=== PATIENT | female | born 1940 | race Caucasian/White ===

== ENCOUNTER → 2018-10-05 | Outpatient (CLI) | payer MEDICARE, OTHER | LOC: DL.US 09:13 | PROVIDERS: ATTEND Nurse Practitioner | DX: R10.13 Epigastric pain (principal); R16.1 Splenomegaly, not elsewhere classified; R59.0 Localized enlarged lymph nodes | CPT/HCPCS: 76700 ==

== ENCOUNTER 2018-10-16 07:18 | Day surgery (SDC) | payer MEDICARE, OTHER ==
[~2018-10-16 07:18] MED LIST: Midazolam 1 MG/ML 2 ML SDV ONE; fentaNYL 100 MCG/2 ML SDV ONE
[2018-10-16] MEDS ORDERED: Midazolam 1 MG/ML 2 ML SDV IV ONE ×3 (07:19→08:06)
[2018-10-16] MEDS ORDERED: fentaNYL 100 MCG/2 ML SDV IV ONE ×3 (07:19→08:05)
[2018-10-16] MEDS ORDERED: Dextrose 5%-0.45% NaCl 1,000 ML IV SCH (07:45)
[2018-10-16 10:17] VITALS: BP 138/70
--- NOTE | 2018-10-16 13:43 | OR ---
DATE: 10/16/2018 PROCEDURE PERFORMED: Esophagogastroduodenoscopy, NBI, multiple pinch biopsies, and brush biopsy. INSTRUMENT USED: [id number]-HQ190 Olympus video panendoscope. PREMEDICATIONS: No oral or topical anesthesia used. Fentanyl 100 mcg intravenous, Versed 2 mg intravenous. The procedure was done under pulse oximetry, BP recording, and environmental monitoring technician. INDICATION: The patient with known CLL having upper abdominal pain persistent in nature, not explained and not responsive to medical measures, on H2RA. Esophagogastroduodenoscopy is performed for detection of any active erosive lesions, Chairez esophagus and/or malignancy also under consideration, Helicobacter pylori status to be determined, endoscopic hemostasis therapy if needed. DESCRIPTION OF PROCEDURE: The scope was passed with ease. Adequate visualization of the esophagus was made from proximal to distal areas. No upper esophageal lesions identified. No distal esophageal stricture. No uphill or downhill esophageal varices. No Homa-Castaneda tear. No evidence of erosive esophagitis by [place] criteria. No esophageal polyp or tumor mass identified. Z-line was seen at around 40 cm distal to the oral verge configuration consistent with grade 1 by ZAP classification. No proximal gastric varices noted. Gastric fundus examination by retroflexion showed no polypoid lesions. In the mid gastric body, more than 1 cm sized ulcer was noted without bleeding from it, no visible vessel identified. Some prominent friable folds were noted in the area of the ulcer, NBI views were obtained. Numerous pinch biopsies around 8 in number were taken from different areas of the ulcer, brush biopsy was taken for cytology. No vascular ectasia identified on visualization of the gastric mucosa. Duodenal bulb showed no ulcer. Visualized second part of the duodenum was unremarkable. No bleeding was noted from any of the visualized areas at the completion of examination. Photographs were taken of the duodenal bulb, gastric antrum, fundus, and distal esophagus. IMPRESSION: Gastric body ulcer. The patient tolerated the procedure well. [facility] /[id number]
== END 2018-10-16 10:21 | disposition home or self-care (01) ==
LOC: DL.ENDO 07:18
PROVIDERS: ATTEND Internal Medicine Gastroenterology
DX: K25.9 Gastric ulcer, unspecified as acute or chronic, without hemorrhage or perforation (principal); C91.10 Chronic lymphocytic leukemia of B-cell type not having achieved remission; D69.6 Thrombocytopenia, unspecified; E79.0 Hyperuricemia without signs of inflammatory arthritis and tophaceous disease; E78.00 Pure hypercholesterolemia, unspecified; Z88.0 Allergy status to penicillin; Z88.8 Allergy status to other drugs, medicaments and biological substances
CPT/HCPCS: 43239; 87077; J2250; J3010; J7042

== ENCOUNTER 2019-10-28 17:00 | Inpatient (IN) | payer MEDICARE, OTHER ==
[2019-10-28 17:58] LABS: ANION GAP 13.6 mEq/L (7-13); CHLORIDE,CL 100 mmol/L (98-107); SODIUM,NA 138 mmol/L (136-145)
[2019-10-28] MEDS ORDERED: Acetaminophen 325 MG Tab PO ONE (18:20)
--- NOTE | 2019-10-28 18:22 | CR ---
PROCEDURE INFORMATION: Exam: XR Left Hip with Pelvis when Performed Exam date and time: 10/28/2019 5:49 PM Age: 79 years old Clinical indication: Injury or trauma; Fall; Initial encounter; Abrasion; Left; Hip; Injury date: 10/28/2019; Additional info: Fall, pain to left hip, left shoulder, mid to low back TECHNIQUE: Imaging protocol: XR Left hip with pelvis when performed. Views: 2 or 3 views. COMPARISON: No relevant prior studies available. FINDINGS: Bones/joints: The alignment of the joints is anatomic and the joint spaces are maintained. There is no evidence of acute fracture. Soft tissues: No soft tissue swelling is identified. IMPRESSION: No acute abnormality.
--- NOTE | 2019-10-28 18:22 | CR ---
PROCEDURE INFORMATION: Exam: XR Left Shoulder Exam date and time: 10/28/2019 5:45 PM Age: 79 years old Clinical indication: Injury or trauma; Fall; Initial encounter; Abrasion; Shoulder; Left; Injury date: 10/28/2019; Additional info: Fall, left shoulder pain, mid and low back pain, left hip pain TECHNIQUE: Imaging protocol: XR Left shoulder. Views: 2 or more views. COMPARISON: No relevant prior studies available. FINDINGS: Bones/joints: There is a transverse fracture across the distal clavicle shaft with upward displacement of the distal fracture fragment by about 7 mm. There appears to be a nondisplaced fracture of the acromion. The glenohumeral joint is normal. Soft tissues: No soft tissue swelling is identified. IMPRESSION: Fracture distal left clavicle and possible fracture of the acromion.
--- NOTE | 2019-10-28 18:23 | CR ---
PROCEDURE INFORMATION: Exam: XR Thoracic Spine, 2 Views Exam date and time: 10/28/2019 5:57 PM Age: 79 years old Clinical indication: Injury or trauma; Fall; Initial encounter; Abrasion; Injury date: 10/28/2019; Additional info: Fall, pain to left shoulder, left hip, mid to low back TECHNIQUE: Imaging protocol: XR of the thoracic spine, 2 views. COMPARISON: No relevant prior studies available. FINDINGS: Vertebrae: There is mild old anterior compression of 1 of the midthoracic vertebral bodies. The disc spaces are maintained. There is no evidence of acute fracture. Heart/Mediastinum: The heart is not enlarged. Vasculature: A right infusion port is present. Soft tissues: The extraspinous soft tissues are normal. IMPRESSION: No acute abnormality.
--- NOTE | 2019-10-28 18:24 | CR ---
PROCEDURE INFORMATION: Exam: XR Cervical Spine, 2 or 3 Views Exam date and time: 10/28/2019 5:54 PM Age: 79 years old Clinical indication: Injury or trauma; Fall; Initial encounter; Abrasion; Injury date: 10/28/2019; Additional info: Fall, pain to left shoulder, left hip, mid to low back TECHNIQUE: Imaging protocol: XR of the cervical spine, 2 or 3 views. COMPARISON: No relevant prior studies available. FINDINGS: Vertebrae: Degenerative disc disease is seen at C5-C6 and C6-C7 with disc narrowing and marginal osteophyte formation. The vertebral body heights are maintained. The facet joints demonstrate moderate degenerative hypertrophy and sclerosis. Soft tissues: Unremarkable IMPRESSION: Degenerative disc and facet disease. No acute process is seen on these limited views.
--- NOTE | 2019-10-28 18:25 | CR ---
PROCEDURE INFORMATION: Exam: XR Lumbosacral Spine, 2 or 3 Views Exam date and time: 10/28/2019 6:05 PM Age: 79 years old Clinical indication: Injury or trauma; Fall; Initial encounter; Abrasion; Injury date: 10/28/2019; Injury details: Patient states that most of her pain is l5-s1 region; Additional info: Fall, pain to left shoulder, left hip, mid to low back TECHNIQUE: Imaging protocol: XR of the lumbosacral spine, 2 or 3 views. COMPARISON: CR Hip Min 2V or 3V w Pelvis Lt 10/28/2019 5:49 PM FINDINGS: Vertebrae: The bone density is moderately decreased. The vertebral body heights are maintained. The disc spaces are maintained. The facet joints demonstrate mild degenerative hypertrophy and sclerosis. Grade 1 spondylolisthesis of L4-L5. Soft tissues: Unremarkable IMPRESSION: Grade 1 L4 spondylolisthesis.
--- NOTE | 2019-10-28 19:00 | CR ---
PROCEDURE INFORMATION: Exam: XR Chest, 1 View Exam date and time: 10/28/2019 6:53 PM Age: 79 years old Clinical indication: Fever TECHNIQUE: Imaging protocol: XR of the chest Views: 1 view. COMPARISON: CT Chest Abdomen Pelvis w Cont 09/11/2019 8:35 AM FINDINGS: Tubes, catheters and devices: A right infusion port is present. Lungs: Unremarkable. No consolidation. Pleural space: Unremarkable. No pleural effusion. No pneumothorax. Heart/Mediastinum: Unremarkable. No cardiomegaly. Bones/joints: Unremarkable. IMPRESSION: No acute findings.
--- NOTE | 2019-10-28 19:18 | EDM.PDOC ---
Scribed by Jonna Brito 10/28/19 [id number] for Betty Bourgeois NP ED HPI GENERAL MEDICAL PROBLEM - General Chief Complaint: Trauma Stated Complaint: AMBULANCE Time Seen by Provider: 10/28/19 17:17 Source of Information: Reports: Patient, EMS, EMS Notes Reviewed, RN, RN Notes Reviewed History Limitations: Reports: No Limitations - History of Present Illness INITIAL COMMENTS - FREE TEXT/NARRATIVE: Patient presents to ER per [facility] with complaint of falling down some steps. Patient states she fell down approximately 5 steps going to her basement. Patient denies hitting her head or getting knocked out. States she lost her balance. She has complaint of left hip, left shoulder pain, worse pain in the middle of back. No vertebral tenderness. Rates pain 8/10. Patient states she was up and walling with assistance from after the fall. Does not take any blood thinners. History of CLL. Onset: Today Duration: Constant Location: Reports: Back, Upper Extremity, Left Quality: Reports: Ache Severity: Moderate Improves with: Reports: None Worsens with: Reports: None Associated Symptoms: Reports: No Other Symptoms Middle Back Pain Score (Numeric/FACES): 8 - Related Data Allergies Allergy/AdvReac Type Severity Reaction Status Date / Time allopurinol Allergy UNKNOWN Verified 10/28/19 17:09 amoxicillin Allergy Hives Verified 10/28/19 17:09 clavulanic acid Allergy Hives Verified 10/28/19 17:09 [From Augmentin] tramadol Allergy Nausea Verified 10/28/19 17:09 Home Meds: Home Meds Calcium Carbonate/Vitamin D3 [Calcium-Vitamin D] 1 tab PO DAILY 07/15/14 [History] Multivitamin [Daily Vitamin] 1 each PO DAILY 07/15/14 [History] Ascorbate Calcium/Bioflavonoid [Marisol-C 500 MG] 1 tab PO DAILY 10/15/18 [History] Cholecalciferol (Vitamin D3) [Vitamin D3] 1,000 units PO DAILY 10/15/18 [History] Vit C/E/Zn/Coppr/Lutein/Zeaxan [Preservision Areds 2 Softgel] 1 tab PO DAILY 10/15/18 [History] Omeprazole Magnesium [Prilosec Otc] 20 mg PO DAILY 10/22/19 [History] ondansetron HCL [Ondansetron HCl] 8 mg PO DAILY 10/22/19 [History] oxyCODONE 5 mg PO BID PRN 10/22/19 [History] Past Medical History HEENT History: Reports: Glaucoma Cardiovascular History: Reports: High Cholesterol Respiratory History: Reports: None Gastrointestinal History: Reports: None Genitourinary History: Reports: Chronic Renal Insuffiency 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 CHRONIC LYMPHOCYTIC LEUKEMIA Immunologic History: Reports: None Oncologic (Cancer) History: Reports: Leukemia, Other (See Below) Other Oncologic History: gastric lymphoma Dermatologic History: Reports: None - Infectious Disease History Infectious Disease History: Reports: Measles - Past Surgical History Head Surgeries/Procedures: Reports: None HEENT Surgical History: Reports: Cataract Surgery, Other (See Below) Other HEENT Surgeries/Procedures: S/P ENTROPION REPAIR LEFT Cardiovascular Surgical History: Reports: None GI Surgical History: Reports: Colonoscopy Female Surgical History: Reports: None Musculoskeletal Surgical History: Reports: None Social & Family History - Family History Family Medical History: Noncontributory - Tobacco Use Smoking Status *Q: Never Smoker - Caffeine Use Caffeine Use: Reports: Coffee Caffeine Use Comment: 1.5 cups daily - Recreational Drug Use Recreational Drug Use: No Review of Systems - Review of Systems Review Of Systems: Comprehensive ROS is negative, except as noted in HPI. ED EXAM, GENERAL - Physical Exam Exam: See Below Exam Limited By: No Limitations General Appearance: Alert, Moderate Distress Eye Exam: Bilateral Eye: EOMI, Normal Inspection, PERRL Ears: Normal External Exam, Normal Canal, Hearing Grossly Normal, Normal TMs Nose: Normal Inspection, Normal Mucosa, No Blood Throat/Mouth: Normal Inspection, Normal Lips, Normal Teeth, Normal Gums, Normal Oropharynx, Normal Voice, No Airway Compromise Head: Other (Abrasion to back of head.) Neck: Normal Inspection, Supple, Non-Tender, Full Range of Motion Respiratory/Chest: No Respiratory Distress, Lungs Clear, Normal Breath Sounds, No Accessory Muscle Use, Chest Non-Tender Cardiovascular: Normal Peripheral Pulses, Regular Rate, Rhythm, No Edema, No Gallop, No JVD, No Murmur, No Rub GI/Abdominal: Normal Bowel Sounds, Soft, Non-Tender, No Organomegaly, No Distention, No Abnormal Bruit, No Mass (Female) Exam: Deferred Rectal (Female) Exam: Deferred Back Exam: Decreased Range of Motion (back) Extremities: Other (tender left shoulder and tender left hip) Neurological: Alert, Oriented, CN II-XII Intact, Normal Cognition, Normal Gait, Normal Reflexes, No Motor/Sensory Deficits Psychiatric: Normal Affect, Normal Mood Skin Exam: Other (abrasion left lower leg and back of head) Lymphatic: No Adenopathy Course - Vital Signs Last Recorded V/S: Last Vital Signs Temp 101.1 F H 10/28/19 18:19 Pulse 93 10/28/19 17:09 Resp 16 10/28/19 17:09 BP 127/58 L 10/28/19 17:09 Pulse Ox 98 10/28/19 17:09 - Orders/Labs/Meds Orders: Active Orders 24 hr Category Date Time Status UA RFX EDWARDO AND CULT IF INDIC [URIN] Stat Lab 10/28/19 18:45 Ordered Labs: Laboratory Tests 10/28/19 10/28/19 Range/Units 17:32 17:32 WBC 10.2 H (5.0-10.0) 10^3/uL RBC 3.70 L (4.2-5.4) 10^6/uL Hgb 10.4 L (12.0-16.0) g/dL Hct 31.4 L (37.0-47.0) % MCV 84.9 (80-100) fL MCH 28.1 (27.0-34.0) pg MCHC 33.1 (33.0-35.0) g/dL Plt Count 68 L (150-450) 10^3/uL Neut % (Auto) 85.1 H (42.2-75.2) % Lymph % (Auto) 7.6 L (20.5-50.1) % Gaines % (Auto) 7.0 (2-8) % Eos % (Auto) 0.2 L (1.0-3.0) % Baso % (Auto) 0.1 (0.0-1.0) % Add Manual Diff Yes Neutrophils % (Manual) 81 H (42-75) % Band Neutrophils % 6 % Lymphocytes % (Manual) 7 L (20-50) % Monocytes % (Manual) 6 (2-8) % Hypochromasia 1+ slight Sodium 138 (136-145) mmol/L Potassium 3.6 (3.5-5.1) mmol/L Chloride 100 (98-107) mmol/L Carbon Dioxide 28 (21-32) mmol/L Anion Gap 13.6 H (7-13) mEq/L BUN 11 (7-18) mg/dL Creatinine 0.86 (0.55-1.02) mg/dL Est Cr Clr Drug Dosing 38.72 mL/min Estimated GFR (MDRD) > 60 BUN/Creatinine Ratio 12.8 (No establ ref range) Glucose 117 H (74-99) mg/dL Calcium 8.7 (8.5-10.1) mg/dL Total Bilirubin 0.6 (0.2-1.0) mg/dL AST 33 (15-37) U/L ALT 27 (14-59) U/L Alkaline Phosphatase 102 (46-116) U/L Total Protein 6.0 L (6.4-8.2) g/dL Albumin 3.5 (3.4-5.0) g/dL Globulin 2.5 Albumin/Globulin Ratio 1.4 Meds: Medications Discontinued Medications Generic Name Dose Route Start Last Admin Trade Name Adriaq PRN Reason Stop Dose Admin Acetaminophen 650 mg 10/28/19 18:20 10/28/19 18:30 Tylenol PO 10/28/19 18:21 650 mg NOW ONE Administration Orphenadrine Citrate 60 mg 10/28/19 17:26 10/28/19 17:36 Norflex IM 10/28/19 17:27 60 mg ONETIME ONE Administration - Radiology Interpretation Free Text/Narrative:: Shoulder x-ray: PROCEDURE INFORMATION: Exam: XR Left Shoulder Exam date and time: 10/28/2019 5:45 PM Age: 79 years old Clinical indication: Injury or trauma; Fall; Initial encounter; Abrasion; Shoulder; Left; Injury date: 10/28/2019; Additional info: Fall, left shoulder pain, mid and low back pain, left hip pain TECHNIQUE: Imaging protocol: XR Left shoulder. Views: 2 or more views. COMPARISON: No relevant prior studies available. FINDINGS: Bones/joints: There is a transverse fracture across the distal clavicle shaft with upward displacement of the distal fracture fragment by about 7 mm. There appears to be a nondisplaced fracture of the acromion. The glenohumeral joint is normal. Soft tissues: No soft tissue swelling is identified. IMPRESSION: Fracture distal left clavicle and possible fracture of the acromion. Thank you for allowing us to participate in the care of your patient. Dictated and Authenticated by: Rivas Slater MD 10/28/2019 6:22 PM Central Time ([place] & [place]) Left hip/pelvis x-ray: PROCEDURE INFORMATION: Exam: XR Left Hip with Pelvis when Performed Exam date and time: 10/28/2019 5:49 PM Age: 79 years old Clinical indication: Injury or trauma; Fall; Initial encounter; Abrasion; Left; Hip; Injury date: 10/28/2019; Additional info: Fall, pain to left hip, left shoulder, mid to low back TECHNIQUE: Imaging protocol: XR Left hip with pelvis when performed. Views: 2 or 3 views. COMPARISON: No relevant prior studies available. FINDINGS: Bones/joints: The alignment of the joints is anatomic and the joint spaces are maintained. There is no evidence of acute fracture. Soft tissues: No soft tissue swelling is identified. IMPRESSION: No acute abnormality. Thank you for allowing us to participate in the care of your patient. Dictated and Authenticated by: Rivas Slater MD 10/28/2019 6:22 PM Central Time ([place] & [place]) C-spine x-ray: PROCEDURE INFORMATION: Exam: XR Cervical Spine, 2 or 3 Views Exam date and time: 10/28/2019 5:54 PM Age: 79 years old Clinical indication: Injury or trauma; Fall; Initial encounter; Abrasion; Injury date: 10/28/2019; Additional info: Fall, pain to left shoulder, left hip, mid to low back TECHNIQUE: Imaging protocol: XR of the cervical spine, 2 or 3 views. COMPARISON: No relevant prior studies available. FINDINGS: Vertebrae: Degenerative disc disease is seen at C5-C6 and C6-C7 with disc narrowing and marginal osteophyte formation. The vertebral body heights are maintained. The facet joints demonstrate moderate degenerative hypertrophy and sclerosis. Soft tissues: Unremarkable IMPRESSION: Degenerative disc and facet disease. No acute process is seen on these limited views. Thank you for allowing us to participate in the care of your patient. Dictated and Authenticated by: Rivas Slater MD 10/28/2019 6:24 PM Central Time ([place] & [place]) Thoracic x-ray: PROCEDURE INFORMATION: Exam: XR Thoracic Spine, 2 Views Exam date and time: 10/28/2019 5:57 PM Age: 79 years old Clinical indication: Injury or trauma; Fall; Initial encounter; Abrasion; Injury date: 10/28/2019; Additional info: Fall, pain to left shoulder, left hip, mid to low back TECHNIQUE: Imaging protocol: XR of the thoracic spine, 2 views. COMPARISON: No relevant prior studies available. FINDINGS: Vertebrae: There is mild old anterior compression of 1 of the midthoracic vertebral bodies. The disc spaces are maintained. There is no evidence of acute fracture. Heart/Mediastinum: The heart is not enlarged. Vasculature: A right infusion port is present. Soft tissues: The extraspinous soft tissues are normal. IMPRESSION: No acute abnormality. Thank you for allowing us to participate in the care of your patient. Dictated and Authenticated by: Rivas Slater MD 10/28/2019 6:23 PM Central Time ([place] & [place]) Lumbar x-ray: PROCEDURE INFORMATION: Exam: XR Lumbosacral Spine, 2 or 3 Views Exam date and time: 10/28/2019 6:05 PM Age: 79 years old Clinical indication: Injury or trauma; Fall; Initial encounter; Abrasion; Injury date: 10/28/2019; Injury details: Patient states that most of her pain is l5-s1 region; Additional info: Fall, pain to left shoulder, left hip, mid to low back TECHNIQUE: Imaging protocol: XR of the lumbosacral spine, 2 or 3 views. COMPARISON: CR Hip Min 2V or 3V w Pelvis Lt 10/28/2019 5:49 PM FINDINGS: Vertebrae: The bone density is moderately decreased. The vertebral body heights are maintained. The disc spaces are maintained. The facet joints demonstrate mild degenerative hypertrophy and sclerosis. Grade 1 spondylolisthesis of L4-L5. Soft tissues: Unremarkable IMPRESSION: Grade 1 L4 spondylolisthesis. Thank you for allowing us to participate in the care of your patient. Dictated and Authenticated by: Rivas Slater MD 10/28/2019 6:25 PM Central Time ([place] & [place]) Chest xray: PROCEDURE INFORMATION: Exam: XR Chest, 1 View Exam date and time: 10/28/2019 6:53 PM Age: 79 years old Clinical indication: Fever TECHNIQUE: Imaging protocol: XR of the chest Views: 1 view. COMPARISON: CT Chest Abdomen Pelvis w Cont 09/11/2019 8:35 AM FINDINGS: Tubes, catheters and devices: A right infusion port is present. Lungs: Unremarkable. No consolidation. Pleural space: Unremarkable. No pleural effusion. No pneumothorax. Heart/Mediastinum: Unremarkable. No cardiomegaly. Bones/joints: Unremarkable. IMPRESSION: No acute findings. Thank you for allowing us to participate in the care of your patient. Dictated and Authenticated by: Rivas Slater MD 10/28/2019 7:00 PM Central Time ([place] & [place]) See rad report - Re-Assessments/Exams Free Text/Narrative Re-Assessment/Exam: 10/28/19 19:18 Discussed patient case with Dr. Kaur who agreed to admit the patient for observation. 10/28/19 19:20 Discussed patient case with Dr. Mccoy who states to sling the patient and she can be seen by him in the Ortho clinic next week. Departure - Departure Time of Disposition: 19:18 Disposition: Refer to Observation Condition: Fair Clinical Impression: Fracture of clavicle Qualifiers: Encounter type: initial encounter Clavicle location: lateral end Fracture type: closed Fracture alignment: displaced Laterality: left Qualified Code(s): S42.032A - Displaced fracture of lateral end of left clavicle, initial encounter for closed fracture - Discharge Information *PRESCRIPTION DRUG MONITORING PROGRAM REVIEWED*: No *COPY OF PRESCRIPTION DRUG MONITORING REPORT IN PATIENT GURU: No Sepsis Event Note (ED) - Evaluation Sepsis Screening Result: No Definite Risk - Focused Exam Vital Signs: Vital Signs Temp Pulse Resp BP Pulse Ox 10/28/19 18:19 101.1 F H 10/28/19 17:09 100.7 F H 93 16 127/58 L 98 - My Orders Last 24 Hours: My Active Orders 10/28/19 18:45 UA RFX EDWARDO AND CULT IF INDIC [URIN] Stat - Assessment/Plan Last 24 Hours: My Active Orders 10/28/19 18:45 UA RFX EDWARDO AND CULT IF INDIC [URIN] Stat I have read and agree with the documentation that has been completed regarding this visit. By signing this record, I attest that the documentation was completed in my physical presence and is an accurate record of the encounter.
--- NOTE | 2019-10-28 20:51 | PCM.HP ---
H&P History of Present Illness - General Date of Service: 10/28/19 Admit Problem/Dx: Admission Diagnosis/Problem Admission Diagnosis/Problem Fever Source of Information: Patient - History of Present Illness Initial Comments - Free Text/Narative: 79-year-old with a history of lymphoma on chemotherapy last treatment 2 weeks ago. The patient has been living at home with . He was going down to the basement when she fell. She did not loose consciousness but was complaining of left hip, left shoulder, mid back pain following the fall. She was able to get up and walk right away. She was brought into the emergency room. She was noted to have a left clavicular fracture. She was noted to have fever. She denies cough, no urinary burning, no diarrhea, no known fever or chills at home. Middle Back Pain Score (Numeric/FACES): 8 - Related Data Allergies/Adverse Reactions: Allergies Allergy/AdvReac Type Severity Reaction Status Date / Time allopurinol Allergy UNKNOWN Verified 10/28/19 17:09 amoxicillin Allergy Hives Verified 10/28/19 17:09 clavulanic acid Allergy Hives Verified 10/28/19 17:09 [From Augmentin] tramadol Allergy Nausea Verified 10/28/19 17:09 Home Medications: Home Meds Calcium Carbonate/Vitamin D3 [Calcium-Vitamin D] 1 tab PO DAILY 07/15/14 [History] Multivitamin [Daily Vitamin] 1 each PO DAILY 07/15/14 [History] Ascorbate Calcium/Bioflavonoid [Marisol-C 500 MG] 1 tab PO DAILY 10/15/18 [History] Cholecalciferol (Vitamin D3) [Vitamin D3] 1,000 units PO DAILY 10/15/18 [History] Vit C/E/Zn/Coppr/Lutein/Zeaxan [Preservision Areds 2 Softgel] 1 tab PO DAILY 10/15/18 [History] Omeprazole Magnesium [Prilosec Otc] 20 mg PO DAILY 10/22/19 [History] ondansetron HCL [Ondansetron HCl] 8 mg PO DAILY PRN 10/22/19 [History] oxyCODONE 5 mg PO BID PRN 10/22/19 [History] Febuxostat [Uloric] 80 mg PO DAILY 10/28/19 [History] Past Medical History HEENT History: Reports: Glaucoma Cardiovascular History: Reports: High Cholesterol Respiratory History: Reports: None Gastrointestinal History: Reports: None, Chronic Constipation Genitourinary History: Reports: Chronic Renal Insuffiency [employer] History: Reports: Musculoskeletal History: Reports: Gout Neurological History: Reports: None Psychiatric History: Reports: None Endocrine/Metabolic History: Reports: Osteoporosis Other Endocrine/Metabolic History: HX OF ELEVATED TSH Hematologic History: Reports: Anemia, Blood Transfusion(s), Other (See Below) Other Hematologic History: ELEVATED BLOOD URIC ACID LEVEL. CHRONIC LYMPHOCYTIC LEUKEMIA Immunologic History: Reports: None Oncologic (Cancer) History: Reports: Leukemia, Lymphoma, Other (See Below) Other Oncologic History: gastric lymphoma Dermatologic History: Reports: None - Infectious Disease History Infectious Disease History: Reports: Measles - Past Surgical History Head Surgeries/Procedures: Reports: None HEENT Surgical History: Reports: Cataract Surgery, Other (See Below) Other HEENT Surgeries/Procedures: S/P ENTROPION REPAIR LEFT Cardiovascular Surgical History: Reports: None GI Surgical History: Reports: Colonoscopy Female Surgical History: Reports: None Musculoskeletal Surgical History: Reports: None Social & Family History - Family History Family Medical History: Noncontributory - Tobacco Use Smoking Status *Q: Never Smoker Second Hand Smoke Exposure: No - Caffeine Use Caffeine Use: Reports: None Caffeine Use Comment: 1.5 cups daily - Recreational Drug Use Recreational Drug Use: No H&P Review of Systems - Review of Systems: Review Of Systems: See Below General: Denies: Fever, Chills, Weakness Pulmonary: Denies: Shortness of Breath Cardiovascular: Denies: Chest Pain, Edema Gastrointestinal: Reports: Abdominal Pain (dyscomfort - chronic) Genitourinary: Denies: Dysuria, Hematuria Musculoskeletal: Reports: Shoulder Pain (left), Back Pain (low back, since fall) Psychiatric: Denies: Confusion Exam - Exam Exam: See Below - Vital Signs Vital Signs: Last Vital Signs Temp 101.2 F H 10/28/19 19:25 Pulse 89 10/28/19 19:25 Resp 18 10/28/19 19:25 BP 126/58 L 10/28/19 19:25 Pulse Ox 97 10/28/19 19:25 Weight: 103 lb 9.6 oz - Exam General: Alert, Oriented Neck: Supple Lungs: Clear to Auscultation, Normal Respiratory Effort Cardiovascular: Regular Rate, Regular Rhythm GI/Abdominal Exam: Normal Bowel Sounds, Soft, Non-Tender Back Exam: Other (low back pain , worse with movements). No: CVA Tenderness (R) Extremities: No Pedal Edema - Patient Data Lab Results Last 24 hrs: Laboratory Results - last 24 hr 10/28/19 10/28/19 Range/Units 17:32 17:32 WBC 10.2 H (5.0-10.0) 10^3/uL RBC 3.70 L (4.2-5.4) 10^6/uL Hgb 10.4 L (12.0-16.0) g/dL Hct 31.4 L (37.0-47.0) % MCV 84.9 (80-100) fL MCH 28.1 (27.0-34.0) pg MCHC 33.1 (33.0-35.0) g/dL Plt Count 68 L (150-450) 10^3/uL Neut % (Auto) 85.1 H (42.2-75.2) % Lymph % (Auto) 7.6 L (20.5-50.1) % [place] % (Auto) 7.0 (2-8) % Eos % (Auto) 0.2 L (1.0-3.0) % Baso % (Auto) 0.1 (0.0-1.0) % Add Manual Diff Yes Neutrophils % (Manual) 81 H (42-75) % Band Neutrophils % 6 % Lymphocytes % (Manual) 7 L (20-50) % Monocytes % (Manual) 6 (2-8) % Hypochromasia 1+ slight Sodium 138 (136-145) mmol/L Potassium 3.6 (3.5-5.1) mmol/L Chloride 100 (98-107) mmol/L Carbon Dioxide 28 (21-32) mmol/L Anion Gap 13.6 H (7-13) mEq/L BUN 11 (7-18) mg/dL Creatinine 0.86 (0.55-1.02) mg/dL Est Cr Clr Drug Dosing 38.72 mL/min Estimated GFR (MDRD) > 60 BUN/Creatinine Ratio 12.8 (No establ ref range) Glucose 117 H (74-99) mg/dL Calcium 8.7 (8.5-10.1) mg/dL Total Bilirubin 0.6 (0.2-1.0) mg/dL AST 33 (15-37) U/L ALT 27 (14-59) U/L Alkaline Phosphatase 102 (46-116) U/L Total Protein 6.0 L (6.4-8.2) g/dL Albumin 3.5 (3.4-5.0) g/dL Globulin 2.5 Albumin/Globulin Ratio 1.4 Result Diagrams: 10/28/19 17:32 10/28/19 17:32 - Problem List (1) Fracture of clavicle SNOMED Code(s): 61447526 ICD Code: S42.009A - FRACTURE OF UNSP PART OF UNSP CLAVICLE, INIT FOR CLOS FX Status: Acute Current Visit: Yes Qualifiers: Encounter type: initial encounter Clavicle location: lateral end Fracture type: closed Fracture alignment: displaced Laterality: left Qualified Code(s): S42.032A - Displaced fracture of lateral end of left clavicle, initial encounter for closed fracture Problem List Initiated/Reviewed/Updated: Yes Orders Last 24hrs: Active Orders 24 hr Category Date Time Status Patient Status [ADT] Routine ADT 10/28/19 20:24 Active Antiembolic Devices [RC] PER UNIT ROUTINE Care 10/28/19 20:26 Active Oxygen Therapy [RC] PRN Care 10/28/19 20:24 Active Peripheral IV Care [RC] . DIRECTED Care 10/28/19 20:26 Active Up With Assistance [RC] ASDIRECTED Care 10/28/19 20:24 Active VTE/DVT Education [RC] PER UNIT ROUTINE Care 10/28/19 20:24 Active Vital Signs [RC] 20,00,04,08,12,16 Care 10/28/19 20:24 Active OT Evaluation and Treatment [CONS] Routine Cons 10/28/19 20:27 Active PT Evaluation and Treatment [CONS] Routine Cons 10/28/19 20:27 Active Regular Diet [DIET] Diet 10/28/19 Breakfast Active BASIC METABOLIC PANEL,BMP [CHEM] AM Lab 10/29/19 05:15 Ordered CBC WITH AUTO DIFF [HEME] AM Lab 10/29/19 05:11 Ordered CULTURE BLOOD [BC] Stat Lab 10/28/19 20:21 Ordered CULTURE BLOOD [BC] Stat Lab 10/28/19 20:21 Ordered UA RFX EDWARDO AND CULT IF INDIC [URIN] Stat Lab 10/28/19 18:45 Ordered Acetaminophen [Tylenol] Med 10/28/19 20:24 Ordered 650 mg PO Q4H PRN Docusate Sodium [Colace] Med 10/28/19 20:24 Ordered 100 mg PO BID PRN Febuxostat [Uloric] Med 10/29/19 09:00 Ordered 80 mg PO DAILY Heparin Sodium Med 10/28/19 22:00 Ordered 5,000 units SUBCUT Q8HR Multivitamin [Daily Vitamin] Med 10/29/19 09:00 Ordered 1 each PO DAILY Omeprazole Magnesium [Prilosec Otc] Med 10/29/19 09:00 Ordered 20 mg PO DAILY Sodium Chloride 0.9% [Saline Flush] Med 10/28/19 20:24 Ordered 10 ml FLUSH ASDIRECTED PRN Temazepam [Restoril] Med 10/28/19 20:24 Ordered 15 mg PO BEDTIME PRN ondansetron HCL Med 10/28/19 20:22 Ordered 8 mg PO DAILY PRN oxyCODONE Med 10/28/19 20:22 Ordered 5 mg PO Q4H PRN Antiembolic Hose [OM.PC] Per Unit Routine Oth 10/28/19 20:26 Ordered Blood Culture x2 Reflex Set [OM.PC] Stat Oth 10/28/19 20:21 Ordered Peripheral IV Insertion Adult [OM.PC] Routine Oth 10/28/19 20:24 Ordered Saline Lock Insert [OM.PC] Routine Oth 10/28/19 20:24 Ordered Resuscitation Status Routine Resus Stat 10/28/19 20:24 Ordered Medication Orders Acetaminophen (Tylenol) 650 mg PO Q4H PRN PRN Reason: Pain (Mild 1-3)/fever Docusate Sodium (Colace) 100 mg PO BID PRN PRN Reason: Constipation Heparin Sodium (Porcine) (Heparin Sodium) 5,000 units SUBCUT Q8HR [facility] Non-Formulary Medication (Febuxostat [Uloric]) 80 mg PO DAILY [facility] Non-Formulary Medication (Multivitamin [Daily Vitamin]) 1 each PO DAILY [facility] Non-Formulary Medication (Omeprazole Magnesium [Prilosec Otc]) 20 mg PO DAILY [facility] Non-Formulary Medication (Ondansetron Hcl) 8 mg PO DAILY PRN PRN Reason: Nausea Oxycodone HCl (Oxycodone) 5 mg PO Q4H PRN PRN Reason: Pain (moderate 4-6) Sodium Chloride (Saline Flush) 10 ml FLUSH ASDIRECTED PRN PRN Reason: Keep Vein Open Temazepam (Restoril) 15 mg PO BEDTIME PRN PRN Reason: Sleep Assessment/Plan Comment:: 79-year-old with a history of lymphoma on chemotherapy last treatment 2 weeks ago. The patient has been living at home with . He was going down to the basement when she fell. She did not loose consciousness but was complaining of left hip, left shoulder, mid back pain following the fall. She was able to get up and walk right away. She was brought into the emergency room. She was noted to have a left clavicular fracture. She was noted to have fever. She denies cough, no urinary burning, no diarrhea, no known fever or chills at home. X-ray of the left shoulder showed distal left clavicular level fracture possible fracture of the acromion. X-ray of the left hip, pelvis showed no apparent fracture or dislocation C-spine x-ray showed degenerative changes Thoracic spine x-ray showed no acute abnormality Lumbar x-ray showed grade 1 L4 spondylolisthesis Fall Back pain with no apparent vertebral fracture Left clavicular fracture, possible fracture of the acromion Use left hand swelling, follow-up with orthopedic surgery We will use Tylenol, oxycodone as needed Physical and occupational therapy evaluation and treatment Fever Chest x-ray apparently shows no infiltrate Obtain urine analysis and culture Obtain blood culture For now hold antibiotics DVT prophylaxis with subcutaneous heparin
[2019-10-28] MEDS ORDERED: Ondansetron 4 MG Tab.DIS PO PRN (21:14)
[2019-10-28] MEDS: oxyCODONE 5 MG Tab PO PRN (21:22)
[2019-10-28] MEDS: Docusate Sodium 100 MG Cap PO PRN (21:24)
[2019-10-28] MEDS: Temazepam 15 MG Cap PO PRN (21:24)
[2019-10-28] MEDS ORDERED: Heparin Sodium 5,000 Units/ML Vial SUBCUT SCH (22:00)
[2019-10-29] MEDS: oxyCODONE 5 MG Tab PO PRN ×3 (06:12→18:26)
[2019-10-29] MEDS: Acetaminophen 325 MG Tab PO PRN ×2 (06:14→12:59)
[2019-10-29 06:57] LABS: ANION GAP 10.5 mEq/L (7-13); CHLORIDE,CL 102 mmol/L (98-107); SODIUM,NA 139 mmol/L (136-145)
[2019-10-29] MEDS ORDERED: Heparin Sodium 5,000 Units/ML Vial SUBCUT SCH (07:00)
--- NOTE | 2019-10-29 09:30 | PCM.PN ---
- General Info Date of Service: 10/29/19 Subjective Update: admitted after a fall continues to have moderate low back pain, worse with movements. Not much pain in the left clavicular area. No shortness of breath, no chest pain. Had fever yesterday but it seems improving. Nevertheless she also received Tylenol as well. Functional Status: Reports: Tolerating Diet, Urinating (Had urinary retention of 350 mL). Denies: Pain Controlled, Ambulating - Review of Systems General: Denies: Fever Pulmonary: Denies: Shortness of Breath Cardiovascular: Denies: Chest Pain, Edema Gastrointestinal: Denies: Abdominal Pain Genitourinary: Reports: Retention. Denies: Dysuria, Frequency Neurological: Denies: Confusion - Patient Data Vitals - Most Recent: Last Vital Signs Temp 99.1 F 10/29/19 08:00 Pulse 78 10/28/19 23:35 Resp 18 10/29/19 08:00 BP 116/67 10/29/19 08:00 Pulse Ox 97 10/29/19 08:00 Weight - Most Recent: 103 lb 9.6 oz I&O - Last 24 Hours: Intake & Output 10/28/19 10/29/19 10/29/19 22:59 06:59 14:59 Intake Total 200 Output Total 200 Balance 0 Lab Results Last 24 Hours: Laboratory Results - last 24 hr 10/28/19 10/28/19 10/29/19 Range/Units 17:32 17:32 05:57 WBC 10.2 H 5.1 (5.0-10.0) 10^3/uL RBC 3.70 L 3.08 L (4.2-5.4) 10^6/uL Hgb 10.4 L 8.8 L D (12.0-16.0) g/dL Hct 31.4 L 26.5 L (37.0-47.0) % MCV 84.9 86.0 (80-100) fL MCH 28.1 28.6 (27.0-34.0) pg MCHC 33.1 33.2 (33.0-35.0) g/dL Plt Count 68 L 60 L (150-450) 10^3/uL Neut % (Auto) 85.1 H 71.6 (42.2-75.2) % Lymph % (Auto) 7.6 L 14.8 L (20.5-50.1) % Love % (Auto) 7.0 13.4 H (2-8) % Eos % (Auto) 0.2 L 0.2 L (1.0-3.0) % Baso % (Auto) 0.1 0.0 (0.0-1.0) % Add Manual Diff Yes Neutrophils % (Manual) 81 H (42-75) % Band Neutrophils % 6 % Lymphocytes % (Manual) 7 L (20-50) % Monocytes % (Manual) 6 (2-8) % Hypochromasia 1+ slight Sodium 138 (136-145) mmol/L Potassium 3.6 (3.5-5.1) mmol/L Chloride 100 (98-107) mmol/L Carbon Dioxide 28 (21-32) mmol/L Anion Gap 13.6 H (7-13) mEq/L BUN 11 (7-18) mg/dL Creatinine 0.86 (0.55-1.02) mg/dL Est Cr Clr Drug Dosing 38.72 mL/min Estimated GFR (MDRD) > 60 BUN/Creatinine Ratio 12.8 (No establ ref range) Glucose 117 H (74-99) mg/dL Calcium 8.7 (8.5-10.1) mg/dL Total Bilirubin 0.6 (0.2-1.0) mg/dL AST 33 (15-37) U/L ALT 27 (14-59) U/L Alkaline Phosphatase 102 (46-116) U/L Total Protein 6.0 L (6.4-8.2) g/dL Albumin 3.5 (3.4-5.0) g/dL Globulin 2.5 Albumin/Globulin Ratio 1.4 07//20 Range/Units 05:57 WBC (5.0-10.0) 10^3/uL RBC (4.2-5.4) 10^6/uL Hgb (12.0-16.0) g/dL Hct (37.0-47.0) % MCV (80-100) fL MCH (27.0-34.0) pg MCHC (33.0-35.0) g/dL Plt Count (150-450) 10^3/uL Neut % (Auto) (42.2-75.2) % Lymph % (Auto) (20.5-50.1) % Love % (Auto) (2-8) % Eos % (Auto) (1.0-3.0) % Baso % (Auto) (0.0-1.0) % Add Manual Diff Neutrophils % (Manual) (42-75) % Band Neutrophils % % Lymphocytes % (Manual) (20-50) % Monocytes % (Manual) (2-8) % Hypochromasia Sodium 139 (136-145) mmol/L Potassium 3.5 (3.5-5.1) mmol/L Chloride 102 (98-107) mmol/L Carbon Dioxide 30 (21-32) mmol/L Anion Gap 10.5 (7-13) mEq/L BUN 10 (7-18) mg/dL Creatinine 0.61 (0.55-1.02) mg/dL Est Cr Clr Drug Dosing 54.60 mL/min Estimated GFR (MDRD) > 60 BUN/Creatinine Ratio (No establ ref range) Glucose 108 H (74-99) mg/dL Calcium 8.5 (8.5-10.1) mg/dL Total Bilirubin (0.2-1.0) mg/dL AST (15-37) U/L ALT (14-59) U/L Alkaline Phosphatase (46-116) U/L Total Protein (6.4-8.2) g/dL Albumin (3.4-5.0) g/dL Globulin Albumin/Globulin Ratio Med Orders - Current: Current Medications Acetaminophen (Tylenol) 650 mg PO Q4H PRN PRN Reason: Pain (Mild 1-3)/fever Last Admin: 10/29/19 06:14 Dose: 650 mg Documented by: Docusate Sodium (Colace) 100 mg PO BID PRN PRN Reason: Constipation Last Admin: 10/28/19 21:24 Dose: 100 mg Documented by: Heparin Sodium (Porcine) (Heparin Sodium) 5,000 units SUBCUT Q8HR [facility] Last Admin: 10/29/19 06:05 Dose: 5,000 units Documented by: Non-Formulary Medication (Febuxostat [Uloric]) 80 mg PO DAILY [facility] Non-Formulary Medication (Multivitamin [Daily Vitamin]) 1 each PO DAILY [facility] Non-Formulary Medication (Omeprazole Magnesium [Prilosec Otc]) 20 mg PO DAILY [facility] Ondansetron HCl (Zofran Odt) 8 mg PO DAILY PRN PRN Reason: Nausea Oxycodone HCl (Oxycodone) 5 mg PO Q4H PRN PRN Reason: Pain (moderate 4-6) Last Admin: 10/29/19 06:12 Dose: 5 mg Documented by: Sodium Chloride (Saline Flush) 10 ml FLUSH ASDIRECTED PRN PRN Reason: Keep Vein Open Temazepam (Restoril) 15 mg PO BEDTIME PRN PRN Reason: Sleep Last Admin: 10/28/19 21:24 Dose: 15 mg Documented by: Discontinued Medications Acetaminophen (Tylenol) 650 mg PO NOW ONE Stop: 10/28/19 18:21 Last Admin: 10/28/19 18:30 Dose: 650 mg Documented by: Heparin Sodium (Porcine) (Heparin Sodium) 5,000 units SUBCUT Q8HR [facility] Orphenadrine Citrate (Norflex) 60 mg IM ONETIME ONE Stop: 10/28/19 17:27 Last Admin: 10/28/19 17:36 Dose: 60 mg Documented by: - Exam General: Alert, Oriented Neck: Supple Lungs: Clear to Auscultation, Normal Respiratory Effort Cardiovascular: Regular Rate, Regular Rhythm GI/Abdominal Exam: Normal Bowel Sounds, Soft, Non-Tender Extremities: No Pedal Edema Sepsis Event Note - Evaluation Sepsis Screening Result: No Definite Risk - Focused Exam Vital Signs: Vital Signs Temp Pulse Resp BP BP Pulse Ox 10/29/19 08:00 99.1 F 18 116/67 97 10/28/19 23:35 97.8 F 78 14 116/56 L 96 Date Exam was Performed: 10/29/19 Time Exam was Performed: 09:27 - Problem List & Annotations (1) Fracture of clavicle SNOMED Code(s): 32561292 Code(s): S42.009A - FRACTURE OF UNSP PART OF UNSP CLAVICLE, INIT FOR CLOS FX Status: Acute Current Visit: Yes Qualifiers: Encounter type: initial encounter Clavicle location: lateral end Fracture type: closed Fracture alignment: displaced Laterality: left Qualified Code(s): S42.032A - Displaced fracture of lateral end of left clavicle, initial encounter for closed fracture - Problem List Review Problem List Initiated/Reviewed/Updated: Yes - My Orders Last 24 Hours: My Active Orders 10/28/19 20:21 Blood Culture x2 Reflex Set [OM.PC] Stat 10/28/19 20:22 oxyCODONE 5 mg PO Q4H PRN 10/28/19 20:24 Patient Status [ADT] Routine Oxygen Therapy [RC] PRN Up With Assistance [RC] ASDIRECTED VTE/DVT Education [RC] PER UNIT ROUTINE Vital Signs [RC] 20,00,04,08,12,16 Acetaminophen [Tylenol] 650 mg PO Q4H PRN Docusate Sodium [Colace] 100 mg PO BID PRN Sodium Chloride 0.9% [Saline Flush] 10 ml FLUSH ASDIRECTED PRN Temazepam [Restoril] 15 mg PO BEDTIME PRN Peripheral IV Insertion Adult [OM.PC] Routine Saline Lock Insert [OM.PC] Routine Resuscitation Status Routine 10/28/19 20:26 Antiembolic Devices [RC] PER UNIT ROUTINE Peripheral IV Care [RC] . DIRECTED Antiembolic Hose [OM.PC] Per Unit Routine 10/28/19 20:27 OT Evaluation and Treatment [CONS] Routine PT Evaluation and Treatment [CONS] Routine 10/28/19 21:14 Ondansetron [Zofran ODT] 8 mg PO DAILY PRN 10/28/19 21:51 CULTURE BLOOD [BC] Stat CULTURE BLOOD [BC] Stat 10/29/19 07:00 Heparin Sodium 5,000 units SUBCUT Q8HR 10/29/19 08:58 K Pad [Heat Therapy] [OM.PC] Routine 10/29/19 09:00 Febuxostat [Uloric] 80 mg PO DAILY Multivitamin [Daily Vitamin] 1 each PO DAILY Omeprazole Magnesium [Prilosec Otc] 20 mg PO DAILY - Plan Plan:: 79-year-old with a history of lymphoma on chemotherapy last treatment 2 weeks ago. The patient has been living at home with . He was going down to the basement when she fell. She did not loose consciousness but was complaining of left hip, left shoulder, mid back pain following the fall. She was able to get up and walk right away. She was brought into the emergency room. She was noted to have a left clavicular fracture. She was noted to have fever. She denies cough, no urinary burning, no diarrhea, no known fever or chills at home. X-ray of the left shoulder showed distal left clavicular level fracture possible fracture of the acromion. X-ray of the left hip, pelvis showed no apparent fracture or dislocation C-spine x-ray showed degenerative changes Thoracic spine x-ray showed no acute abnormality Lumbar x-ray showed grade 1 L4 spondylolisthesis Fall Back pain with no apparent vertebral fracture Left clavicular fracture, possible fracture of the acromion Use left hand swelling, follow-up with orthopedic surgery We will use Tylenol, oxycodone as needed Physical and occupational therapy evaluation and treatment Heat pad to the back Fever Chest x-ray apparently shows no infiltrate Has urinary retention, we will try to get her up - Obtain urine analysis and culture blood culture: Pending For now hold antibiotics DVT prophylaxis with subcutaneous heparin
[2019-10-29] MEDS: Docusate Sodium 100 MG Cap PO PRN (10:15)
[2019-10-29] MEDS: Ciprofloxacin 500 MG Tab PO SCH ×2 (14:40→21:02)
[2019-10-30] MEDS: oxyCODONE 5 MG Tab PO PRN ×4 (03:06→21:54)
[2019-10-30] MEDS: Heparin Sodium 5,000 Units/ML Vial SUBCUT SCH ×3 (05:39→21:56)
[2019-10-30] MEDS: Pantoprazole 40 MG Tab.CR PO SCH (06:16)
[2019-10-30] MEDS: Lidocaine 5% 700 MG Patch TOP SCH (06:17)
[2019-10-30 07:08] LABS: ANION GAP 12.2 mEq/L (7-13); CHLORIDE,CL 101 mmol/L (98-107); SODIUM,NA 136 mmol/L (136-145)
[2019-10-30] MEDS: Ciprofloxacin 500 MG Tab PO SCH ×2 (08:19→21:53)
--- NOTE | 2019-10-30 11:02 | PN ---
DATE: 10/30/2019 SUBJECTIVE: Ms. Armin Damon is a 79-year-old female with medical history significant for lymphoma, on chemotherapy, last treatment was 2 weeks back, admitted with a fall, noted to have left-sided clavicular fracture. For the last 24 hours, the patient continues to have pain. It is mostly in the lower back region around her pelvis, on the posterior side. She grades the pain as 8/10 in intensity, aggravated on movement and ambulation, relieved partially with pain medication. Denies any chest pain. No shortness of breath. No abdominal pain. No nausea. No vomiting. No diarrhea. The patient denies any tingling or numbness to her lower extremities. Denies any weakness to her lower extremities. OBJECTIVE: Vital Signs: Temperature of 98.7, pulse of 91, blood pressure 117/61, respiratory rate of 18, saturating at 96%. General Appearance: The patient is well oriented to time, place, and person. Follows commands spontaneously. Cardiovascular System: S1, S2 heard with normal intensity. No gallops. Respiratory System: Clear to auscultation bilaterally. No wheeze. No crepitations. Abdomen: Soft. Bowel sounds positive. Nontender. No rigidity. Extremities: No edema to bilateral lower extremities. MEDICATIONS: Reviewed, continue with Tylenol 650 every 4 hours as needed for pain, ciprofloxacin 250 mg twice a day, heparin 5000 units subcutaneous q.8 hourly, Lidoderm transdermal patch, oxycodone 5 mg every 4 hours as needed for pain, Protonix 40 mg daily. LABORATORY DATA: Reviewed. WBC 6.1, hemoglobin 8.5, hematocrit 25.9, platelet count 86. Sodium 136, potassium 3.2, chloride 101, bicarb 26, BUN 10, creatinine 0.6. ASSESSMENT: 1. Intractable low back pain. 2. Status post fall. 3. Left-sided clavicular fracture. 4. History of lymphoma. 5. Anemia. 6. Thrombocytopenia. 7. Hypokalemia. PLAN: 1. Intractable low back pain. The patient complains of increasing lower back pain after a fall. Unsure if patient has any pelvic fracture or any lumbar fractures. We will try to get a CT scan of the lumbar spine and also the pelvis to rule out any fractures. We will have her on Lidoderm transdermal patch for pain control. We will also continue with oral and IV pain medications. We will have Physical Therapy and Occupational Therapy evaluate and treat the patient, to help with ambulation and strengthening. 2. Hypokalemia. We will replace with oral potassium chloride. Recheck a BMP in a.m. 3. Anemia and thrombocytopenia. This is mostly chemotherapy-induced. The patient has underlying lymphoma. No indication for transfusion. Recheck a CBC in a.m. 4. Deep venous thrombosis prophylaxis. Be cautious regarding thrombocytopenia, closely follow. [facility] /[id number]
[2019-10-30] MEDS: Acetaminophen 325 MG Tab PO PRN (11:15)
[2019-10-30] MEDS: Non-Formulary Medication 1 Each (Omeprazole Magnesium [Prilosec Otc] 20 MG) PO SCH ×2 (11:40→12:31)
[2019-10-30] MEDS: FEBUXOSTAT 80 MG PO SCH ×2 (11:58→12:30)
[2019-10-30] MEDS: Morphine 2 MG/ML SYRINGE IVPUSH PRN ×2 (12:23→23:45)
--- NOTE | 2019-10-30 13:28 | CT ---
EXAMINATION: Lumbar Spine wo Cont SEX: Female AGE: 79 years CLINICAL HISTORY: 79-year-old 103 pound female injured in fall (down 5 steps), 2 days ago. LOW BACK PAIN. Scan technique: Volume acquisition of data emergency unenhanced CT scan of the lumbar spine and sacrum obtained with the patient lying supine on the Siemens multi slice scanner [place], [place]. All data archived in the PACS system for storage, reformatting axial/sagittal/coronal planes and study. (Comparison plain film exam lumbar spine 28 October 2019). Interpretation: Abnormal. 1. Older insufficiency fracture L1 vertebral body. 2. Anterolisthesis L4 vertebral body with associated dense reactive arthritic changes posterior tilting facets and chronic L4-5 disc disease. 3. No other lumbar fracture or dislocation. 4. *Nondisplaced comminuted FRACTURE sacral ala, on the left. 5. Symmetric spacing normal-appearing SI joints. 6. No foreign bodies.
--- NOTE | 2019-10-30 13:44 | CT ---
EXAMINATION: Pelvis wo Cont SEX: Female AGE: 79 years CLINICAL HISTORY: 79-year-old 103 pound female injured in a fall (2 days ago). Low back pain. Lumbar CT revealed "old L1 fracture; mild anterolisthesis L4; chronic L4-5 disc disease; and, left sacral fracture". Scan technique: Volume acquisition of data unenhanced CT scan of the pelvis obtained with patient lying supine on the Siemens multislice scanner [facility]. All data archived in the PACS system for storage, reformatting axial/sagittal/coronal planes, study (soft tissue/bone windows). Interpretation: Abnormal. 1. FRACTURE distal sacrum, on the left. On sagittal imaging there appears to be 5 mm anterior displacement of the distal sacral fragment (and coccyx). 2. Comminuted, nondisplaced, additional fracture of the ipsilateral first sacral ala, on the left. 3. Sacroiliac joints symmetrically intact. 4. Homogeneous normal bone density remainder of the bony pelvis about sign of pelvic or either hip fracture/dislocation. 5. Symmetrically spaced normal-appearing hip joints without appreciable arthritic degenerative change. 6. Note: Markedly distended (neurogenic?) midline urinary bladder. CONCLUSION: Sacral fractures (2 sites). Distended urinary bladder. No other pelvic or hip fracture/dislocation. Anterolisthesis L4 vertebral body and chronic L4-5 disc disease.
[2019-10-30] MEDS ORDERED: Ondansetron 4 MG/2 ML SDV IVPUSH PRN (14:48)
[2019-10-30] MEDS: Potassium Chloride 10 MEQ Tab.ER PO SCH (17:22)
[2019-10-30] MEDS: Temazepam 15 MG Cap PO PRN (21:54)
[2019-10-30] MEDS: Sodium Chloride 0.9% 10 ML Syringe FLUSH PRN ×3 (21:58→23:56)
[2019-10-31] MEDS: Pantoprazole 40 MG Tab.CR PO SCH (06:51)
[2019-10-31] MEDS: Lidocaine 5% 700 MG Patch TOP SCH (06:52)
[2019-10-31] MEDS: Heparin Sodium 5,000 Units/ML Vial SUBCUT SCH ×3 (06:55→21:12)
[2019-10-31] MEDS: Sodium Chloride 0.9% 10 ML Syringe FLUSH PRN ×6 (06:57→21:11)
[2019-10-31] MEDS: Morphine 2 MG/ML SYRINGE IVPUSH PRN ×4 (06:57→21:02)
[2019-10-31] MEDS: Multivitamins,Therapeutic Tab PO SCH (09:26)
[2019-10-31] MEDS: oxyCODONE 5 MG Tab PO PRN ×2 (09:26→20:56)
[2019-10-31] MEDS: Potassium Chloride 10 MEQ Tab.ER PO SCH ×2 (09:27→18:27)
[2019-10-31] MEDS: Ciprofloxacin 500 MG Tab PO SCH ×2 (09:27→20:57)
[2019-10-31] MEDS: FEBUXOSTAT 80 MG PO SCH (09:28)
[2019-10-31 09:49] LABS: ANION GAP 13.6 mEq/L (7-13); CHLORIDE,CL 100 mmol/L (98-107); SODIUM,NA 135 mmol/L (136-145)
--- NOTE | 2019-10-31 10:16 | PCM.PN ---
- General Info Date of Service: 10/31/19 Subjective Update: admitted after a fall continues to have severe low back pain, worse with movements. Oral oxycodone and IV morphine is not controlling adequately. Has pain continuously even at rest now. Feels the pain is more than on presentation. Not much pain in the left clavicular area. No shortness of breath, no chest pain. No chills. No further fever. - Review of Systems General: Denies: Fever, Weakness Pulmonary: Denies: Shortness of Breath Cardiovascular: Denies: Chest Pain, Edema Gastrointestinal: Denies: Abdominal Pain Musculoskeletal: Reports: Back Pain Neurological: Denies: Confusion - Patient Data Vitals - Most Recent: Last Vital Signs Temp 97.8 F 10/31/19 08:00 Pulse 96 10/31/19 08:00 Resp 18 10/31/19 08:00 BP 101/74 10/31/19 08:00 Pulse Ox 97 10/31/19 08:00 Weight - Most Recent: 103 lb 9.6 oz I&O - Last 24 Hours: Intake & Output 10/30/19 10/31/19 10/31/19 22:59 06:59 14:59 Intake Total 10 420 120 Output Total 1000 150 Balance 10 -580 -30 Lab Results Last 24 Hours: Laboratory Results - last 24 hr 10/31/19 Range/Units 08:55 Sodium 135 L (136-145) mmol/L Potassium 3.6 (3.5-5.1) mmol/L Chloride 100 (98-107) mmol/L Carbon Dioxide 25 (21-32) mmol/L Anion Gap 13.6 H (7-13) mEq/L BUN 11 (7-18) mg/dL Creatinine 0.70 (0.55-1.02) mg/dL Est Cr Clr Drug Dosing 47.58 mL/min Estimated GFR (MDRD) > 60 Glucose 117 H (74-99) mg/dL Calcium 8.1 L (8.5-10.1) mg/dL Yifan Results Last 24 Hours: Microbiology 10/29/19 12:18 Urine Culture - Final Urine, Voided MIXED POSITIVE ABBEY DAY 2 10/28/19 21:51 Aerobic Blood Culture - Preliminary Blood - Venous - Lab Draw NO GROWTH AFTER 2 DAYS Anaerobic Blood Culture - Preliminary NO GROWTH AFTER 2 DAYS 10/28/19 21:51 Aerobic Blood Culture - Preliminary Blood - Venous NO GROWTH AFTER 2 DAYS Anaerobic Blood Culture - Preliminary NO GROWTH AFTER 2 DAYS Med Orders - Current: Current Medications Acetaminophen (Tylenol) 650 mg PO Q4H PRN PRN Reason: Pain (Mild 1-3)/fever Last Admin: 10/30/19 11:15 Dose: 650 mg Documented by: Ciprofloxacin (Ciprofloxacin Hcl) 250 mg PO BID [facility] Last Admin: 10/31/19 09:27 Dose: 250 mg Documented by: Docusate Sodium (Colace) 100 mg PO BID PRN PRN Reason: Constipation Last Admin: 10/29/19 10:15 Dose: 100 mg Documented by: Fentanyl (Duragesic) 25 mcg TRDERM Q72H [facility] Heparin Sodium (Porcine) (Heparin Sodium) 5,000 units SUBCUT Q8HR [facility] Last Admin: 10/31/19 06:55 Dose: 5,000 units Documented by: Lidocaine (Lidoderm 5%) 700 mg TOP Q24H [facility] Last Admin: 10/31/19 06:52 Dose: 700 mg Documented by: Miscellaneous Information (Remove Patch) 1 ea TRDERM Q24H [facility] Last Admin: 10/30/19 17:22 Dose: 1 ea Documented by: Morphine Sulfate (Morphine) 2 mg IVPUSH Q2H PRN PRN Reason: Pain (severe 7-10) Last Admin: 10/31/19 09:28 Dose: 2 mg Documented by: Multivitamins (Thera) 1 each PO DAILY [facility] Last Admin: 10/31/19 09:26 Dose: 1 each Documented by: Febuxostat [Uloric] (80 Mg Tab *Own Med*) 80 mg PO DAILY [facility] Last Admin: 10/31/19 09:28 Dose: 80 mg Documented by: Ondansetron HCl (Zofran Odt) 8 mg PO DAILY PRN PRN Reason: Nausea Last Admin: 10/30/19 08:19 Dose: 8 mg Documented by: Ondansetron HCl (Zofran) 4 mg IVPUSH Q8HR PRN PRN Reason: Nausea/Vomiting Oxycodone HCl (Oxycodone) 5 mg PO Q4H PRN PRN Reason: Pain (moderate 4-6) Last Admin: 10/31/19 09:26 Dose: 5 mg Documented by: Pantoprazole Sodium (Protonix) 40 mg PO ACBREAKFAST [facility] Last Admin: 10/31/19 06:51 Dose: 40 mg Documented by: Potassium Chloride (Klor-Con 10) 20 meq PO BIDMEALS [facility] Last Admin: 10/31/19 09:27 Dose: 20 meq Documented by: Sodium Chloride (Saline Flush) 10 ml FLUSH ASDIRECTED PRN PRN Reason: Keep Vein Open Last Admin: 10/31/19 09:29 Dose: 10 ml Documented by: Temazepam (Restoril) 15 mg PO BEDTIME PRN PRN Reason: Sleep Last Admin: 10/30/19 21:54 Dose: 15 mg Documented by: Discontinued Medications Acetaminophen (Tylenol) 650 mg PO NOW ONE Stop: 10/28/19 18:21 Last Admin: 10/28/19 18:30 Dose: 650 mg Documented by: Heparin Sodium (Porcine) (Heparin Sodium) 5,000 units SUBCUT Q8HR [facility] Heparin Sodium (Porcine) (Heparin Sodium) 5,000 units SUBCUT Q8HR [facility] Last Admin: 10/29/19 06:05 Dose: 5,000 units Documented by: Non-Formulary Medication (Omeprazole Magnesium [Prilosec Otc]) 20 mg PO DAILY [facility] Last Admin: 10/30/19 12:31 Dose: Not Given Documented by: Orphenadrine Citrate (Norflex) 60 mg IM ONETIME ONE Stop: 10/28/19 17:27 Last Admin: 10/28/19 17:36 Dose: 60 mg Documented by: - Exam Quality Assessment: No: Supplemental Oxygen General: Alert, Oriented Neck: Supple Lungs: Clear to Auscultation, Normal Respiratory Effort Cardiovascular: Regular Rate, Regular Rhythm GI/Abdominal Exam: Normal Bowel Sounds, Soft, Non-Tender (Female) Exam: Other (Dumont catheter) Extremities: No Pedal Edema Sepsis Event Note - Evaluation Sepsis Screening Result: No Definite Risk - Focused Exam Vital Signs: Vital Signs Temp Pulse Resp BP Pulse Ox 10/31/19 08:00 97.8 F 96 18 101/74 97 Date Exam was Performed: 10/31/19 Time Exam was Performed: 10:16 - Problem List & Annotations (1) Fracture of clavicle SNOMED Code(s): 89347374 Code(s): S42.009A - FRACTURE OF UNSP PART OF UNSP CLAVICLE, INIT FOR CLOS FX Status: Acute Current Visit: Yes Qualifiers: Encounter type: initial encounter Clavicle location: lateral end Fracture type: closed Fracture alignment: displaced Laterality: left Qualified Code(s): S42.032A - Displaced fracture of lateral end of left clavicle, initial encounter for closed fracture (2) Fever SNOMED Code(s): 870197686 Code(s): R50.9 - FEVER, UNSPECIFIED Status: Acute Current Visit: Yes (3) Sacral fracture, closed SNOMED Code(s): 172821417 Code(s): S32.10XA - UNSP FRACTURE OF SACRUM, INIT ENCNTR FOR CLOSED FRACTURE Status: Acute Current Visit: Yes (4) UTI (urinary tract infection) SNOMED Code(s): 77918879 Code(s): N39.0 - URINARY TRACT INFECTION, SITE NOT SPECIFIED Status: Acute Current Visit: Yes (5) Urinary retention SNOMED Code(s): 654219459 Code(s): R33.9 - RETENTION OF URINE, UNSPECIFIED Status: Acute Current Visit: Yes - Problem List Review Problem List Initiated/Reviewed/Updated: Yes - My Orders Last 24 Hours: My Active Orders 10/30/19 18:00 Remove Patch 1 ea TRDERM Q24H 10/31/19 09:00 Multivitamins,Therapeutic [Thera] 1 each PO DAILY 10/31/19 10:15 fentaNYL [Duragesic] 25 mcg TRDERM Q72H - Plan Plan:: 79-year-old with a history of lymphoma on chemotherapy last treatment 2 weeks ago. The patient has been living at home with . He was going down to the basement when she fell. She did not loose consciousness but was complaining of left hip, left shoulder, mid back pain following the fall. She was able to get up and walk right away. She was brought into the emergency room. She was noted to have a left clavicular fracture. She was noted to have fever. She denies cough, no urinary burning, no diarrhea, no known fever or chills at home. X-ray of the left shoulder showed distal left clavicular level fracture possible fracture of the acromion. X-ray of the left hip, pelvis showed no apparent fracture or dislocation C-spine x-ray showed degenerative changes Thoracic spine x-ray showed no acute abnormality Lumbar x-ray showed grade [address] of the lumbar spine showed old L1 fracture CT of the pelvis showed 2 areas of sacral fracture Fall Back pain due to sacral fractures Left clavicular fracture, possible fracture of the acromion Use left hand swing, follow-up with orthopedic surgery Pain is not well controlled with Tylenol, oxycodone, Lidoderm, IV morphine Add fentanyl patch Continue physical and occupational therapy Heat pad to the back Fever Chest x-ray apparently shows no infiltrate Has urinary retention, Dumont catheter was placed Urine analysis borderline Urine culture mixed abbey blood culture: Negative for now On ciprofloxacin DVT prophylaxis with subcutaneous heparin
[2019-10-31] MEDS: fentaNYL 25 MCG/HR Transdermal Patch TRDERM SCH (10:52)
[2019-10-31] MEDS ORDERED: Potassium Chloride 10 MEQ Tab.ER PO ONE (11:00)
[2019-10-31] MEDS: Lactulose Soln 10 GM/15 ML 30 ML UD Cup PO PRN (14:08)
[2019-10-31] MEDS: CHECK TRDERM SCH (20:53)
[2019-10-31] MEDS: Nystatin Susp 100,000 Unit/ML 5 ML UD Cup PO SCH (21:18)
[2019-10-31] MEDS: Temazepam 15 MG Cap PO PRN (21:28)
[2019-11-01] MEDS: Pantoprazole 40 MG Tab.CR PO SCH (06:13)
[2019-11-01] MEDS: Heparin Sodium 5,000 Units/ML Vial SUBCUT SCH ×3 (06:14→21:06)
[2019-11-01] MEDS: Lidocaine 5% 700 MG Patch TOP SCH (06:14)
[2019-11-01] MEDS: oxyCODONE 5 MG Tab PO PRN ×4 (06:16→21:03)
[2019-11-01] MEDS: Morphine 2 MG/ML SYRINGE IVPUSH PRN ×5 (06:20→23:14)
[2019-11-01] MEDS: Sodium Chloride 0.9% 10 ML Syringe FLUSH PRN ×4 (06:20→23:14)
[2019-11-01] MEDS: Potassium Chloride 10 MEQ Tab.ER PO SCH ×2 (08:49→18:03)
[2019-11-01] MEDS: Nystatin Susp 100,000 Unit/ML 5 ML UD Cup PO SCH ×4 (08:49→21:01)
[2019-11-01] MEDS: Multivitamins,Therapeutic Tab PO SCH (08:49)
[2019-11-01] MEDS: Lactulose Soln 10 GM/15 ML 30 ML UD Cup PO PRN (08:49)
[2019-11-01] MEDS: Ciprofloxacin 500 MG Tab PO SCH ×2 (08:49→21:02)
[2019-11-01] MEDS: FEBUXOSTAT 80 MG PO SCH (08:51)
--- NOTE | 2019-11-01 10:39 | PCM.PN ---
- General Info Date of Service: 11/01/19 Admission Dx/Problem (Free Text): Admission Diagnosis/Problem Admission Diagnosis/Problem Fever Subjective Update: admitted after a fall low back pain is better, moderate, worse with movements. improved since starting fentanyl patch, no associated nausea, has pain and ulcers in her mouth Not much pain in the left clavicular area. No shortness of breath, no chest pain. No chills. No further fever. Functional Status: Reports: Pain Controlled (better) - Review of Systems General: Denies: Fever, Weakness Pulmonary: Denies: Shortness of Breath Cardiovascular: Denies: Chest Pain Gastrointestinal: Reports: Constipation. Denies: Abdominal Pain - Patient Data Vitals - Most Recent: Last Vital Signs Temp 98.4 F 11/01/19 08:00 Pulse 96 11/01/19 08:00 Resp 16 11/01/19 08:00 BP 98/53 L 11/01/19 08:00 Pulse Ox 97 11/01/19 08:00 Weight - Most Recent: 103 lb 9.6 oz I&O - Last 24 Hours: Intake & Output 10/31/19 11/01/19 11/01/19 22:59 06:59 14:59 Intake Total 200 60 Output Total 200 60 Balance 0 0 Yifan Results Last 24 Hours: Microbiology 10/28/19 21:51 Aerobic Blood Culture - Preliminary Blood - Venous - Lab Draw NO GROWTH AFTER 3 DAYS Anaerobic Blood Culture - Preliminary NO GROWTH AFTER 3 DAYS 10/28/19 21:51 Aerobic Blood Culture - Preliminary Blood - Venous NO GROWTH AFTER 3 DAYS Anaerobic Blood Culture - Preliminary NO GROWTH AFTER 3 DAYS 10/29/19 12:18 Urine Culture - Final Urine, Voided MIXED POSITIVE ABBEY DAY 2 Med Orders - Current: Current Medications Acetaminophen (Tylenol) 650 mg PO Q4H PRN PRN Reason: Pain (Mild 1-3)/fever Last Admin: 10/30/19 11:15 Dose: 650 mg Documented by: Ciprofloxacin (Ciprofloxacin Hcl) 250 mg PO BID [facility] Last Admin: 11/01/19 08:49 Dose: 250 mg Documented by: Docusate Sodium (Colace) 100 mg PO BID PRN PRN Reason: Constipation Last Admin: 10/29/19 10:15 Dose: 100 mg Documented by: Fentanyl (Duragesic) 25 mcg TRDERM Q72H [facility] Last Admin: 10/31/19 10:52 Dose: 25 mcg Documented by: Heparin Sodium (Porcine) (Heparin Sodium) 5,000 units SUBCUT Q8HR [facility] Last Admin: 11/01/19 06:14 Dose: 5,000 units Documented by: Lactulose (Cephulac) 20 gm PO BID PRN PRN Reason: constipation Last Admin: 11/01/19 08:49 Dose: 20 gm Documented by: Lidocaine (Lidoderm 5%) 700 mg TOP Q24H [facility] Last Admin: 11/01/19 06:14 Dose: 700 mg Documented by: Miscellaneous Information (Remove Patch) 1 ea TRDERM Q24H [facility] Last Admin: 10/31/19 18:35 Dose: 1 ea Documented by: Miscellaneous Information (Check Patch) 1 ea TRDERM BEDTIME [facility] Last Admin: 10/31/19 20:53 Dose: Not Given Documented by: Miscellaneous Information (Remove Patch) 1 ea TRDERM Q72H [facility] Morphine Sulfate (Morphine) 2 mg IVPUSH Q2H PRN PRN Reason: Pain (severe 7-10) Last Admin: 11/01/19 09:55 Dose: 2 mg Documented by: Multivitamins (Thera) 1 each PO DAILY [facility] Last Admin: 11/01/19 08:49 Dose: 1 each Documented by: Febuxostat [Uloric] (80 Mg Tab *Own Med*) 80 mg PO DAILY [facility] Last Admin: 11/01/19 08:51 Dose: 80 mg Documented by: Nystatin (Mycostatin) 5 ml PO QID [facility] Last Admin: 11/01/19 08:49 Dose: 5 ml Documented by: Ondansetron HCl (Zofran Odt) 8 mg PO DAILY PRN PRN Reason: Nausea Last Admin: 10/30/19 08:19 Dose: 8 mg Documented by: Ondansetron HCl (Zofran) 4 mg IVPUSH Q8HR PRN PRN Reason: Nausea/Vomiting Oxycodone HCl (Oxycodone) 5 mg PO Q4H PRN PRN Reason: Pain (moderate 4-6) Last Admin: 11/01/19 09:55 Dose: 5 mg Documented by: Pantoprazole Sodium (Protonix) 40 mg PO ACBREAKFAST [facility] Last Admin: 11/01/19 06:13 Dose: 40 mg Documented by: Potassium Chloride (Klor-Con 10) 20 meq PO BIDMEALS [facility] Last Admin: 11/01/19 08:49 Dose: 20 meq Documented by: Senna/Docusate Sodium (Senna Plus) 1 tab PO BID [facility] Last Admin: 11/01/19 08:49 Dose: 1 tab Documented by: Sodium Chloride (Saline Flush) 10 ml FLUSH ASDIRECTED PRN PRN Reason: Keep Vein Open Last Admin: 11/01/19 06:33 Dose: 10 ml Documented by: Temazepam (Restoril) 15 mg PO BEDTIME PRN PRN Reason: Sleep Last Admin: 10/31/19 21:28 Dose: 15 mg Documented by: Discontinued Medications Acetaminophen (Tylenol) 650 mg PO NOW ONE Stop: 10/28/19 18:21 Last Admin: 10/28/19 18:30 Dose: 650 mg Documented by: Heparin Sodium (Porcine) (Heparin Sodium) 5,000 units SUBCUT Q8HR [facility] Heparin Sodium (Porcine) (Heparin Sodium) 5,000 units SUBCUT Q8HR [facility] Last Admin: 10/29/19 06:05 Dose: 5,000 units Documented by: Non-Formulary Medication (Omeprazole Magnesium [Prilosec Otc]) 20 mg PO DAILY [facility] Last Admin: 10/30/19 12:31 Dose: Not Given Documented by: Orphenadrine Citrate (Norflex) 60 mg IM ONETIME ONE Stop: 10/28/19 17:27 Last Admin: 10/28/19 17:36 Dose: 60 mg Documented by: Potassium Chloride (Klor-Con 10) 20 meq PO ONETIME ONE Stop: 10/31/19 11:01 Last Admin: 10/31/19 10:51 Dose: 20 meq Documented by: - Exam Quality Assessment: No: Supplemental Oxygen General: Alert, Oriented Lungs: Clear to Auscultation, Normal Respiratory Effort Cardiovascular: Regular Rate, Regular Rhythm Extremities: No Pedal Edema Sepsis Event Note - Evaluation Sepsis Screening Result: No Definite Risk - Focused Exam Vital Signs: Vital Signs Temp Pulse Resp BP BP Pulse Ox 11/01/19 08:00 98.4 F 96 16 98/53 L 97 11/01/19 06:00 98.1 F 88 20 105/49 L 98 Date Exam was Performed: 11/01/19 Time Exam was Performed: 10:35 - Problem List & Annotations (1) Fracture of clavicle SNOMED Code(s): 19915531 Code(s): S42.009A - FRACTURE OF UNSP PART OF UNSP CLAVICLE, INIT FOR CLOS FX Status: Acute Current Visit: Yes Qualifiers: Encounter type: initial encounter Clavicle location: lateral end Fracture type: closed Fracture alignment: displaced Laterality: left Qualified Code(s): S42.032A - Displaced fracture of lateral end of left clavicle, initial encounter for closed fracture (2) Fever SNOMED Code(s): 026578177 Code(s): R50.9 - FEVER, UNSPECIFIED Status: Acute Current Visit: Yes (3) Sacral fracture, closed SNOMED Code(s): 695773774 Code(s): S32.10XA - UNSP FRACTURE OF SACRUM, INIT ENCNTR FOR CLOSED FRACTURE Status: Acute Current Visit: Yes (4) UTI (urinary tract infection) SNOMED Code(s): 78165554 Code(s): N39.0 - URINARY TRACT INFECTION, SITE NOT SPECIFIED Status: Acute Current Visit: Yes (5) Urinary retention SNOMED Code(s): 361655675 Code(s): R33.9 - RETENTION OF URINE, UNSPECIFIED Status: Acute Current Visit: Yes - Problem List Review Problem List Initiated/Reviewed/Updated: Yes - My Orders Last 24 Hours: My Active Orders 10/31/19 11:00 fentaNYL [Duragesic] 25 mcg TRDERM Q72H 10/31/19 11:44 Lactulose [Cephulac] 20 gm PO BID PRN 10/31/19 11:45 Docusate Sodium/Sennosides [Senna Plus] 1 tab PO BID 10/31/19 21:00 Check Patch 1 ea TRDERM BEDTIME Nystatin [Mycostatin] 5 ml PO QID 11/03/19 11:00 Remove Patch 1 ea TRDERM Q72H - Plan Plan:: 79-year-old with a history of lymphoma on chemotherapy last treatment 2 weeks ago. The patient has been living at home with . He was going down to the basement when she fell. She did not loose consciousness but was complaining of left hip, left shoulder, mid back pain following the fall. She was able to get up and walk right away. She was brought into the emergency room. She was noted to have a left clavicular fracture. She was noted to have fever. She denies cough, no urinary burning, no diarrhea, no known fever or chills at home. X-ray of the left shoulder showed distal left clavicular level fracture possible fracture of the acromion. X-ray of the left hip, pelvis showed no apparent fracture or dislocation C-spine x-ray showed degenerative changes Thoracic spine x-ray showed no acute abnormality Lumbar x-ray showed grade [address] of the lumbar spine showed old L1 fracture CT of the pelvis showed 2 areas of sacral fracture Fall Back pain due to sacral fractures Left clavicular fracture, possible fracture of the acromion Use left hand swing, follow-up with orthopedic surgery Pain was not well controlled with Tylenol, oxycodone, Lidoderm, IV morphine better with fentanyl patch Continue physical and occupational therapy Heat pad to the back constipation treat with senna, lactulose Fever Chest x-ray apparently shows no infiltrate Has urinary retention, Dumont catheter was placed Urine analysis was borderline Urine culture mixed abbey blood culture: Negative for now On ciprofloxacin DVT prophylaxis with subcutaneous heparin
[2019-11-01] MEDS: CHECK TRDERM SCH (21:04)
[2019-11-01] MEDS: Temazepam 15 MG Cap PO PRN (21:19)
[2019-11-02] MEDS: oxyCODONE 5 MG Tab PO PRN ×3 (05:25→19:37)
[2019-11-02] MEDS: Heparin Sodium 5,000 Units/ML Vial SUBCUT SCH ×3 (05:28→21:28)
[2019-11-02] MEDS: Morphine 2 MG/ML SYRINGE IVPUSH PRN ×6 (05:29→21:17)
[2019-11-02] MEDS: Sodium Chloride 0.9% 10 ML Syringe FLUSH PRN ×2 (05:29→11:20)
[2019-11-02] MEDS: Lidocaine 5% 700 MG Patch TOP SCH (05:35)
[2019-11-02] MEDS: Pantoprazole 40 MG Tab.CR PO SCH (05:41)
[2019-11-02] MEDS: Multivitamins,Therapeutic Tab PO SCH (08:43)
[2019-11-02] MEDS: Ciprofloxacin 500 MG Tab PO SCH ×2 (08:43→21:28)
[2019-11-02] MEDS: Nystatin Susp 100,000 Unit/ML 5 ML UD Cup PO SCH ×4 (08:44→21:27)
[2019-11-02] MEDS: Potassium Chloride 10 MEQ Tab.ER PO SCH ×2 (08:44→17:32)
[2019-11-02] MEDS: FEBUXOSTAT 80 MG PO SCH (08:45)
--- NOTE | 2019-11-02 11:00 | PCM.PN ---
- General Info Date of Service: 11/02/19 Admission Dx/Problem (Free Text): Admission Diagnosis/Problem Admission Diagnosis/Problem Fever Subjective Update: admitted after a fall low back pain is still significant but better, moderate, worse with movements. Better with rest. Better at night. improved since starting fentanyl patch, no associated nausea, has pain and ulcers in her mouth Not much pain in the left clavicular area. No shortness of breath, no chest pain. No chills. No further fever. Had small amount of bowel movement. Functional Status: Reports: Tolerating Diet, Ambulating. Denies: Pain Controlled - Review of Systems General: Reports: Weakness. Denies: Fever (Minimally) Pulmonary: Denies: Shortness of Breath Cardiovascular: Denies: Chest Pain, Edema Gastrointestinal: Denies: Abdominal Pain Genitourinary: Denies: Dysuria - Patient Data Vitals - Most Recent: Last Vital Signs Temp 97.2 F 11/02/19 08:00 Pulse 76 11/02/19 08:00 Resp 16 11/02/19 08:00 BP 114/82 11/02/19 08:00 Pulse Ox 98 11/02/19 08:00 Weight - Most Recent: 103 lb 9.6 oz I&O - Last 24 Hours: Intake & Output 11/01/19 11/02/19 11/02/19 22:59 06:59 14:59 Intake Total 450 120 Output Total 200 300 Balance -200 150 120 Yifan Results Last 24 Hours: Microbiology 10/28/19 21:51 Aerobic Blood Culture - Preliminary Blood - Venous - Lab Draw NO GROWTH AFTER 4 DAYS Anaerobic Blood Culture - Preliminary NO GROWTH AFTER 4 DAYS 10/28/19 21:51 Aerobic Blood Culture - Preliminary Blood - Venous NO GROWTH AFTER 4 DAYS Anaerobic Blood Culture - Preliminary NO GROWTH AFTER 4 DAYS Med Orders - Current: Current Medications Acetaminophen (Tylenol) 650 mg PO Q4H PRN PRN Reason: Pain (Mild 1-3)/fever Last Admin: 10/30/19 11:15 Dose: 650 mg Documented by: Ciprofloxacin (Ciprofloxacin Hcl) 250 mg PO BID [facility] Last Admin: 11/02/19 08:43 Dose: 250 mg Documented by: Docusate Sodium (Colace) 100 mg PO BID PRN PRN Reason: Constipation Last Admin: 10/29/19 10:15 Dose: 100 mg Documented by: Fentanyl (Duragesic) 25 mcg TRDERM Q72H [facility] Last Admin: 10/31/19 10:52 Dose: 25 mcg Documented by: Heparin Sodium (Porcine) (Heparin Sodium) 5,000 units SUBCUT Q8HR [facility] Last Admin: 11/02/19 05:28 Dose: 5,000 units Documented by: Lactulose (Cephulac) 20 gm PO BID PRN PRN Reason: constipation Last Admin: 11/01/19 08:49 Dose: 20 gm Documented by: Lidocaine (Lidoderm 5%) 700 mg TOP Q24H [facility] Last Admin: 11/02/19 05:35 Dose: 700 mg Documented by: Miscellaneous Information (Remove Patch) 1 ea TRDERM Q24H [facility] Last Admin: 11/01/19 18:03 Dose: 1 ea Documented by: Miscellaneous Information (Check Patch) 1 ea TRDERM BEDTIME [facility] Last Admin: 11/01/19 21:04 Dose: 1 ea Documented by: Miscellaneous Information (Remove Patch) 1 ea TRDERM Q72H [facility] Morphine Sulfate (Morphine) 2 mg IVPUSH Q2H PRN PRN Reason: Pain (severe 7-10) Last Admin: 11/02/19 08:46 Dose: 2 mg Documented by: Multivitamins (Thera) 1 each PO DAILY [facility] Last Admin: 11/02/19 08:43 Dose: 1 each Documented by: Febuxostat [Uloric] (80 Mg Tab *Own Med*) 80 mg PO DAILY [facility] Last Admin: 11/02/19 08:45 Dose: 80 mg Documented by: Nystatin (Mycostatin) 5 ml PO QID [facility] Last Admin: 11/02/19 08:44 Dose: 5 ml Documented by: Ondansetron HCl (Zofran Odt) 8 mg PO DAILY PRN PRN Reason: Nausea Last Admin: 10/30/19 08:19 Dose: 8 mg Documented by: Ondansetron HCl (Zofran) 4 mg IVPUSH Q8HR PRN PRN Reason: Nausea/Vomiting Last Admin: 11/01/19 11:48 Dose: 4 mg Documented by: Oxycodone HCl (Oxycodone) 5 mg PO Q4H PRN PRN Reason: Pain (moderate 4-6) Last Admin: 11/02/19 05:25 Dose: 5 mg Documented by: Pantoprazole Sodium (Protonix) 40 mg PO ACBREAKFAST [facility] Last Admin: 11/02/19 05:41 Dose: 40 mg Documented by: Potassium Chloride (Klor-Con 10) 20 meq PO BIDMEALS [facility] Last Admin: 11/02/19 08:44 Dose: 20 meq Documented by: Senna/Docusate Sodium (Senna Plus) 1 tab PO BID [facility] Last Admin: 11/02/19 08:44 Dose: Not Given Documented by: Sodium Chloride (Saline Flush) 10 ml FLUSH ASDIRECTED PRN PRN Reason: Keep Vein Open Last Admin: 11/02/19 05:29 Dose: 10 ml Documented by: Temazepam (Restoril) 15 mg PO BEDTIME PRN PRN Reason: Sleep Last Admin: 11/01/19 21:19 Dose: 15 mg Documented by: Discontinued Medications Acetaminophen (Tylenol) 650 mg PO NOW ONE Stop: 10/28/19 18:21 Last Admin: 10/28/19 18:30 Dose: 650 mg Documented by: Heparin Sodium (Porcine) (Heparin Sodium) 5,000 units SUBCUT Q8HR [facility] Heparin Sodium (Porcine) (Heparin Sodium) 5,000 units SUBCUT Q8HR [facility] Last Admin: 10/29/19 06:05 Dose: 5,000 units Documented by: Non-Formulary Medication (Omeprazole Magnesium [Prilosec Otc]) 20 mg PO DAILY [facility] Last Admin: 10/30/19 12:31 Dose: Not Given Documented by: Orphenadrine Citrate (Norflex) 60 mg IM ONETIME ONE Stop: 10/28/19 17:27 Last Admin: 10/28/19 17:36 Dose: 60 mg Documented by: Potassium Chloride (Klor-Con 10) 20 meq PO ONETIME ONE Stop: 10/31/19 11:01 Last Admin: 10/31/19 10:51 Dose: 20 meq Documented by: - Exam General: Alert, Oriented Neck: Supple Lungs: Clear to Auscultation, Normal Respiratory Effort Cardiovascular: Regular Rate, Regular Rhythm GI/Abdominal Exam: Normal Bowel Sounds, Soft, Non-Tender Extremities: No Pedal Edema Sepsis Event Note - Evaluation Sepsis Screening Result: No Definite Risk - Focused Exam Vital Signs: Vital Signs Temp Pulse Resp BP BP Pulse Ox 11/02/19 08:00 97.2 F 76 16 114/82 98 11/02/19 05:00 98.4 F 83 20 100/63 95 11/01/19 23:00 98.2 F 95 20 98/47 L 95 Date Exam was Performed: 11/02/19 Time Exam was Performed: 10:58 - Problem List & Annotations (1) Fracture of clavicle SNOMED Code(s): 11648435 Code(s): S42.009A - FRACTURE OF UNSP PART OF UNSP CLAVICLE, INIT FOR CLOS FX Status: Acute Current Visit: Yes Qualifiers: Encounter type: initial encounter Clavicle location: lateral end Fracture type: closed Fracture alignment: displaced Laterality: left Qualified Code(s): S42.032A - Displaced fracture of lateral end of left clavicle, initial encounter for closed fracture (2) Fever SNOMED Code(s): 563037203 Code(s): R50.9 - FEVER, UNSPECIFIED Status: Acute Current Visit: Yes (3) Sacral fracture, closed SNOMED Code(s): 990457049 Code(s): S32.10XA - UNSP FRACTURE OF SACRUM, INIT ENCNTR FOR CLOSED FRACTURE Status: Acute Current Visit: Yes (4) UTI (urinary tract infection) SNOMED Code(s): 05090728 Code(s): N39.0 - URINARY TRACT INFECTION, SITE NOT SPECIFIED Status: Acute Current Visit: Yes (5) Urinary retention SNOMED Code(s): 674216669 Code(s): R33.9 - RETENTION OF URINE, UNSPECIFIED Status: Acute Current Visit: Yes - Problem List Review Problem List Initiated/Reviewed/Updated: Yes - My Orders Last 24 Hours: My Active Orders 11/03/19 11:00 Remove Patch 1 ea TRDERM Q72H - Plan Plan:: 79-year-old with a history of lymphoma on chemotherapy last treatment 2 weeks ago. The patient has been living at home with . He was going down to the basement when she fell. She did not loose consciousness but was complaining of left hip, left shoulder, mid back pain following the fall. She was able to get up and walk right away. She was brought into the emergency room. She was noted to have left clavicular fracture. She was noted to have fever. She denies cough, no urinary burning, no diarrhea, no known fever or chills at home. X-ray of the left shoulder showed distal left clavicular level fracture possible fracture of the acromion. X-ray of the left hip, pelvis showed no apparent fracture or dislocation C-spine x-ray showed degenerative changes Thoracic spine x-ray showed no acute abnormality Lumbar x-ray showed grade [address] of the lumbar spine showed old L1 fracture CT of the pelvis showed 2 areas of sacral fracture Fall Back pain due to sacral fractures Left clavicular fracture, possible fracture of the acromion Use left hand swing, follow-up with orthopedic surgery Pain was not well controlled with Tylenol, oxycodone, Lidoderm, IV morphine improved with fentanyl patch Continue physical and occupational therapy Heat pad to the back constipation improved treat with senna, lactulose Fever Chest x-ray apparently shows no infiltrate Has urinary retention, Dumont catheter was placed Urine analysis was borderline Urine culture mixed abbey blood culture: Negative for now On ciprofloxacin DVT prophylaxis with subcutaneous heparin
[2019-11-02] MEDS: Acetaminophen 325 MG Tab PO PRN (19:36)
[2019-11-02] MEDS: Temazepam 15 MG Cap PO PRN (21:38)
[2019-11-02] MEDS: Lidocaine 2% Viscous Solution 15 ML Cup PO SCH (21:43)
[2019-11-02] MEDS: CHECK TRDERM SCH (21:46)
[2019-11-03] MEDS: Morphine 2 MG/ML SYRINGE IVPUSH PRN ×5 (05:24→21:20)
[2019-11-03] MEDS: Lidocaine 5% 700 MG Patch TOP SCH (05:31)
[2019-11-03] MEDS: Acetaminophen 325 MG Tab PO PRN (05:32)
[2019-11-03] MEDS: Pantoprazole 40 MG Tab.CR PO SCH (05:32)
[2019-11-03] MEDS: Heparin Sodium 5,000 Units/ML Vial SUBCUT SCH ×3 (05:32→21:17)
[2019-11-03] MEDS: oxyCODONE 5 MG Tab PO PRN ×4 (05:33→21:18)
[2019-11-03] MEDS ORDERED: Lidocaine 2% Viscous Solution 15 ML Cup PO SCH (06:00)
[2019-11-03] MEDS: Potassium Chloride 10 MEQ Tab.ER PO SCH ×2 (08:33→18:13)
[2019-11-03] MEDS: Ciprofloxacin 500 MG Tab PO SCH ×2 (08:33→21:16)
[2019-11-03] MEDS: Lidocaine 2% Viscous Solution 15 ML Cup PO SCH ×4 (08:34→18:14)
[2019-11-03] MEDS: Multivitamins,Therapeutic Tab PO SCH (08:34)
[2019-11-03] MEDS: Nystatin Susp 100,000 Unit/ML 5 ML UD Cup PO SCH ×4 (08:34→21:17)
[2019-11-03] MEDS: Docusate Sodium 100 MG Cap PO PRN (08:38)
[2019-11-03] MEDS: FEBUXOSTAT 80 MG PO SCH (08:39)
[2019-11-03] MEDS ORDERED: REMOVE TRDERM SCH (11:00)
[2019-11-03] MEDS: fentaNYL 25 MCG/HR Transdermal Patch TRDERM SCH (11:10)
--- NOTE | 2019-11-03 11:36 | PCM.PN ---
- General Info Date of Service: 11/03/19 Admission Dx/Problem (Free Text): Admission Diagnosis/Problem Admission Diagnosis/Problem Fever Subjective Update: admitted after a fall low back pain is still significant but better, moderate, worse with movements. Better with rest. Had no pain at night. improved since starting fentanyl patch, no associated nausea, has pain and ulcers in her mouth - better with lidocaine Not much pain in the left clavicular area. No shortness of breath, no chest pain. No chills. No further fever. Functional Status: Reports: Pain Controlled, Tolerating Diet, Ambulating - Review of Systems General: Denies: Fever (Minimally), Weakness Pulmonary: Denies: Shortness of Breath Cardiovascular: Denies: Chest Pain, Edema Gastrointestinal: Denies: Abdominal Pain Musculoskeletal: Reports: Back Pain - Patient Data Vitals - Most Recent: Last Vital Signs Temp 98.7 F 11/03/19 07:42 Pulse 71 11/03/19 07:42 Resp 18 11/03/19 07:42 BP 94/53 L 11/03/19 07:42 Pulse Ox 100 11/03/19 07:42 Weight - Most Recent: 103 lb 9.6 oz I&O - Last 24 Hours: Intake & Output 11/02/19 11/03/19 11/03/19 22:59 06:59 14:59 Intake Total 45 Output Total 750 550 Balance -705 -550 Yifan Results Last 24 Hours: Microbiology 10/28/19 21:51 Aerobic Blood Culture - Final Blood - Venous - Lab Draw NO GROWTH AFTER 5 DAYS Anaerobic Blood Culture - Final NO GROWTH AFTER 5 DAYS 10/28/19 21:51 Aerobic Blood Culture - Final Blood - Venous NO GROWTH AFTER 5 DAYS Anaerobic Blood Culture - Final NO GROWTH AFTER 5 DAYS Med Orders - Current: Current Medications Acetaminophen (Tylenol) 650 mg PO Q4H PRN PRN Reason: Pain (Mild 1-3)/fever Last Admin: 11/03/19 05:32 Dose: 650 mg Documented by: Ciprofloxacin (Ciprofloxacin Hcl) 250 mg PO BID [facility] Last Admin: 11/03/19 08:33 Dose: 250 mg Documented by: Docusate Sodium (Colace) 100 mg PO BID PRN PRN Reason: Constipation Last Admin: 11/03/19 08:38 Dose: 100 mg Documented by: Fentanyl (Duragesic) 25 mcg TRDERM Q72H [facility] Last Admin: 11/03/19 11:10 Dose: 25 mcg Documented by: Heparin Sodium (Porcine) (Heparin Sodium) 5,000 units SUBCUT Q8HR [facility] Last Admin: 11/03/19 05:32 Dose: 5,000 units Documented by: Lactulose (Cephulac) 20 gm PO BID PRN PRN Reason: constipation Last Admin: 11/01/19 08:49 Dose: 20 gm Documented by: Lidocaine (Lidoderm 5%) 700 mg TOP Q24H [facility] Last Admin: 11/03/19 05:31 Dose: 700 mg Documented by: Lidocaine HCl (Xylocaine 2% Viscous) 5 ml PO TIDAC [facility] Last Admin: 11/03/19 11:12 Dose: Not Given Documented by: Miscellaneous Information (Remove Patch) 1 ea TRDERM Q24H [facility] Last Admin: 11/02/19 17:32 Dose: 1 ea Documented by: Miscellaneous Information (Check Patch) 1 ea TRDERM BEDTIME [facility] Last Admin: 11/02/19 21:46 Dose: Not Given Documented by: Miscellaneous Information (Remove Patch) 1 ea TRDERM Q72H [facility] Last Admin: 11/03/19 11:10 Dose: 1 ea Documented by: Morphine Sulfate (Morphine) 2 mg IVPUSH Q2H PRN PRN Reason: Pain (severe 7-10) Last Admin: 11/03/19 05:24 Dose: 2 mg Documented by: Multivitamins (Thera) 1 each PO DAILY [facility] Last Admin: 11/03/19 08:34 Dose: 1 each Documented by: Febuxostat [Uloric] (80 Mg Tab *Own Med*) 80 mg PO DAILY [facility] Last Admin: 11/03/19 08:39 Dose: 80 mg Documented by: Nystatin (Mycostatin) 5 ml PO QID [facility] Last Admin: 11/03/19 08:34 Dose: 5 ml Documented by: Ondansetron HCl (Zofran Odt) 8 mg PO DAILY PRN PRN Reason: Nausea Last Admin: 10/30/19 08:19 Dose: 8 mg Documented by: Ondansetron HCl (Zofran) 4 mg IVPUSH Q8HR PRN PRN Reason: Nausea/Vomiting Last Admin: 11/01/19 11:48 Dose: 4 mg Documented by: Oxycodone HCl (Oxycodone) 5 mg PO Q4H PRN PRN Reason: Pain (moderate 4-6) Last Admin: 11/03/19 09:42 Dose: 5 mg Documented by: Pantoprazole Sodium (Protonix) 40 mg PO ACBREAKFAST [facility] Last Admin: 11/03/19 05:32 Dose: 40 mg Documented by: Potassium Chloride (Klor-Con 10) 20 meq PO BIDMEALS [facility] Last Admin: 11/03/19 08:33 Dose: 20 meq Documented by: Senna/Docusate Sodium (Senna Plus) 1 tab PO BID [facility] Last Admin: 11/03/19 08:37 Dose: Not Given Documented by: Sodium Chloride (Saline Flush) 10 ml FLUSH ASDIRECTED PRN PRN Reason: Keep Vein Open Last Admin: 11/02/19 11:20 Dose: 10 ml Documented by: Temazepam (Restoril) 15 mg PO BEDTIME PRN PRN Reason: Sleep Last Admin: 11/02/19 21:38 Dose: 15 mg Documented by: Discontinued Medications Acetaminophen (Tylenol) 650 mg PO NOW ONE Stop: 10/28/19 18:21 Last Admin: 10/28/19 18:30 Dose: 650 mg Documented by: Heparin Sodium (Porcine) (Heparin Sodium) 5,000 units SUBCUT Q8HR [facility] Heparin Sodium (Porcine) (Heparin Sodium) 5,000 units SUBCUT Q8HR [facility] Last Admin: 10/29/19 06:05 Dose: 5,000 units Documented by: Lidocaine HCl (Xylocaine 2% Viscous) 5 ml PO TIDAC [facility] Non-Formulary Medication (Omeprazole Magnesium [Prilosec Otc]) 20 mg PO DAILY [facility] Last Admin: 10/30/19 12:31 Dose: Not Given Documented by: Orphenadrine Citrate (Norflex) 60 mg IM ONETIME ONE Stop: 10/28/19 17:27 Last Admin: 10/28/19 17:36 Dose: 60 mg Documented by: Potassium Chloride (Klor-Con 10) 20 meq PO ONETIME ONE Stop: 10/31/19 11:01 Last Admin: 10/31/19 10:51 Dose: 20 meq Documented by: - Exam General: Alert, Oriented Lungs: Clear to Auscultation Cardiovascular: Regular Rate, Regular Rhythm GI/Abdominal Exam: Normal Bowel Sounds, Soft, Non-Tender Extremities: No Pedal Edema Sepsis Event Note - Evaluation Sepsis Screening Result: No Definite Risk - Focused Exam Vital Signs: Vital Signs Temp Pulse Resp BP Pulse Ox 11/03/19 07:42 98.7 F 71 18 94/53 L 100 11/03/19 04:00 98.5 F 86 16 108/42 L 97 Date Exam was Performed: 11/03/19 Time Exam was Performed: 11:34 - Problem List & Annotations (1) Fracture of clavicle SNOMED Code(s): 70279457 Code(s): S42.009A - FRACTURE OF UNSP PART OF UNSP CLAVICLE, INIT FOR CLOS FX Status: Acute Current Visit: Yes Qualifiers: Encounter type: initial encounter Clavicle location: lateral end Fracture type: closed Fracture alignment: displaced Laterality: left Qualified Code(s): S42.032A - Displaced fracture of lateral end of left clavicle, initial encounter for closed fracture (2) Fever SNOMED Code(s): 981242244 Code(s): R50.9 - FEVER, UNSPECIFIED Status: Acute Current Visit: Yes (3) Sacral fracture, closed SNOMED Code(s): 773796829 Code(s): S32.10XA - UNSP FRACTURE OF SACRUM, INIT ENCNTR FOR CLOSED FRACTURE Status: Acute Current Visit: Yes (4) UTI (urinary tract infection) SNOMED Code(s): 51041928 Code(s): N39.0 - URINARY TRACT INFECTION, SITE NOT SPECIFIED Status: Acute Current Visit: Yes (5) Urinary retention SNOMED Code(s): 675202195 Code(s): R33.9 - RETENTION OF URINE, UNSPECIFIED Status: Acute Current Visit: Yes - Problem List Review Problem List Initiated/Reviewed/Updated: Yes - My Orders Last 24 Hours: My Active Orders 11/02/19 21:30 Lidocaine 2% [Xylocaine 2% Viscous] 5 ml PO TIDAC 11/03/19 11:00 Remove Patch 1 ea TRDERM Q72H - Plan Plan:: 79-year-old with a history of lymphoma on chemotherapy last treatment 2 weeks ago. The patient has been living at home with . He was going down to the basement when she fell. She did not loose consciousness but was complaining of left hip, left shoulder, mid back pain following the fall. She was able to get up and walk right away. She was brought into the emergency room. She was noted to have left clavicular fracture. She was noted to have fever. She denies cough, no urinary burning, no diarrhea, no known fever or chills at home. X-ray of the left shoulder showed distal left clavicular level fracture possible fracture of the acromion. X-ray of the left hip, pelvis showed no apparent fracture or dislocation C-spine x-ray showed degenerative changes Thoracic spine x-ray showed no acute abnormality Lumbar x-ray showed grade [address] of the lumbar spine showed old L1 fracture CT of the pelvis showed 2 areas of sacral fracture Fall Back pain due to sacral fractures Left clavicular fracture, possible fracture of the acromion pain is better controlled Use left hand swing, follow-up with orthopedic surgery Pain was not well controlled with Tylenol, oxycodone, Lidoderm, IV morphine improved with fentanyl patch Continue physical and occupational therapy Heat pad to the back constipation improved continue to treat with senna, lactulose Fever Chest x-ray apparently shows no infiltrate Has urinary retention, Dumont catheter was placed Urine analysis was borderline Urine culture mixed abbey blood culture: Negative for now On ciprofloxacin - will stop tomorrow DVT prophylaxis with subcutaneous heparin
[2019-11-03] MEDS: CHECK TRDERM SCH (21:21)
[2019-11-04] MEDS: Temazepam 15 MG Cap PO PRN ×2 (02:19→22:10)
[2019-11-04] MEDS: Morphine 2 MG/ML SYRINGE IVPUSH PRN ×5 (02:19→21:53)
[2019-11-04] MEDS: Heparin Sodium 5,000 Units/ML Vial SUBCUT SCH ×3 (06:32→21:50)
[2019-11-04] MEDS: Lidocaine 2% Viscous Solution 15 ML Cup PO SCH ×3 (06:32→15:22)
[2019-11-04] MEDS: Pantoprazole 40 MG Tab.CR PO SCH (06:33)
[2019-11-04] MEDS: Lidocaine 5% 700 MG Patch TOP SCH (06:33)
[2019-11-04] MEDS: Multivitamins,Therapeutic Tab PO SCH (08:44)
[2019-11-04] MEDS: FEBUXOSTAT 80 MG PO SCH (08:46)
[2019-11-04] MEDS: Ciprofloxacin 500 MG Tab PO SCH (08:47)
[2019-11-04] MEDS: Potassium Chloride 10 MEQ Tab.ER PO SCH ×2 (08:47→17:35)
[2019-11-04] MEDS: Acetaminophen 325 MG Tab PO PRN (08:48)
[2019-11-04] MEDS: Nystatin Susp 100,000 Unit/ML 5 ML UD Cup PO SCH ×4 (08:48→20:03)
[2019-11-04] MEDS: oxyCODONE 5 MG Tab PO PRN ×2 (09:46→22:04)
--- NOTE | 2019-11-04 10:21 | PCM.PN ---
- General Info Date of Service: 11/04/19 Admission Dx/Problem (Free Text): Admission Diagnosis/Problem Admission Diagnosis/Problem Fever Subjective Update: admitted after a fall low back pain is still significant, moderate, worse with movements. Better with rest. Had to use IV Morphine x2 for the night improved since starting fentanyl patch but still significant, no associated nausea, has pain and ulcers in her mouth Not much pain in the left clavicular area. No shortness of breath, no chest pain. No chills. No further fever. Functional Status: Reports: Tolerating Diet, Urinating (with song for retention ). Denies: Ambulating - Review of Systems General: Reports: Weakness. Denies: Fever Pulmonary: Denies: Shortness of Breath Cardiovascular: Denies: Chest Pain, Edema Gastrointestinal: Reports: Constipation. Denies: Abdominal Pain Neurological: Denies: Confusion - Patient Data Vitals - Most Recent: Last Vital Signs Temp 98.1 F 11/04/19 08:00 Pulse 93 11/04/19 08:00 Resp 18 11/04/19 08:00 BP 92/68 11/04/19 08:00 Pulse Ox 95 11/04/19 08:00 Weight - Most Recent: 103 lb 9.6 oz I&O - Last 24 Hours: Intake & Output 11/03/19 11/04/19 11/04/19 22:59 06:59 14:59 Intake Total 120 150 Output Total 900 Balance 120 -750 Med Orders - Current: Current Medications Acetaminophen (Tylenol) 650 mg PO Q4H PRN PRN Reason: Pain (Mild 1-3)/fever Last Admin: 11/04/19 08:48 Dose: 650 mg Documented by: Ciprofloxacin (Ciprofloxacin Hcl) 250 mg PO BID [facility] Last Admin: 11/04/19 08:47 Dose: 250 mg Documented by: Cyclobenzaprine HCl (Flexeril) 10 mg PO BID [facility] Docusate Sodium (Colace) 100 mg PO BID PRN PRN Reason: Constipation Last Admin: 11/03/19 08:38 Dose: 100 mg Documented by: Fentanyl (Duragesic) 25 mcg TRDERM Q72H [facility] Last Admin: 11/03/19 11:10 Dose: 25 mcg Documented by: Heparin Sodium (Porcine) (Heparin Sodium) 5,000 units SUBCUT Q8HR [facility] Last Admin: 11/04/19 06:32 Dose: 5,000 units Documented by: Lactulose (Cephulac) 20 gm PO BID PRN PRN Reason: constipation Last Admin: 11/01/19 08:49 Dose: 20 gm Documented by: Lidocaine (Lidoderm 5%) 700 mg TOP Q24H [facility] Last Admin: 11/04/19 06:33 Dose: 700 mg Documented by: Lidocaine HCl (Xylocaine 2% Viscous) 5 ml PO TIDAC [facility] Last Admin: 11/04/19 06:32 Dose: 5 ml Documented by: Miscellaneous Information (Remove Patch) 1 ea TRDERM Q24H [facility] Last Admin: 11/03/19 18:28 Dose: 1 ea Documented by: Miscellaneous Information (Check Patch) 1 ea TRDERM BEDTIME [facility] Last Admin: 11/03/19 21:21 Dose: Not Given Documented by: Miscellaneous Information (Remove Patch) 1 ea TRDERM Q72H [facility] Last Admin: 11/03/19 11:10 Dose: 1 ea Documented by: Morphine Sulfate (Morphine) 2 mg IVPUSH Q2H PRN PRN Reason: Pain (severe 7-10) Last Admin: 11/04/19 09:47 Dose: 2 mg Documented by: Multivitamins (Thera) 1 each PO DAILY [facility] Last Admin: 11/04/19 08:44 Dose: 1 each Documented by: Febuxostat [Uloric] (80 Mg Tab *Own Med*) 80 mg PO DAILY [facility] Last Admin: 11/04/19 08:46 Dose: 80 mg Documented by: Nystatin (Mycostatin) 5 ml PO QID [facility] Last Admin: 11/04/19 08:48 Dose: 5 ml Documented by: Ondansetron HCl (Zofran Odt) 8 mg PO DAILY PRN PRN Reason: Nausea Last Admin: 10/30/19 08:19 Dose: 8 mg Documented by: Ondansetron HCl (Zofran) 4 mg IVPUSH Q8HR PRN PRN Reason: Nausea/Vomiting Last Admin: 11/01/19 11:48 Dose: 4 mg Documented by: Oxycodone HCl (Oxycodone) 5 mg PO Q4H PRN PRN Reason: Pain (moderate 4-6) Last Admin: 11/04/19 09:46 Dose: 5 mg Documented by: Pantoprazole Sodium (Protonix) 40 mg PO ACBREAKFAST [facility] Last Admin: 11/04/19 06:33 Dose: 40 mg Documented by: Potassium Chloride (Klor-Con 10) 20 meq PO BIDMEALS [facility] Last Admin: 11/04/19 08:47 Dose: 20 meq Documented by: Senna/Docusate Sodium (Senna Plus) 1 tab PO BID [facility] Last Admin: 11/04/19 08:44 Dose: 1 tab Documented by: Sodium Chloride (Saline Flush) 10 ml FLUSH ASDIRECTED PRN PRN Reason: Keep Vein Open Last Admin: 11/02/19 11:20 Dose: 10 ml Documented by: Temazepam (Restoril) 15 mg PO BEDTIME PRN PRN Reason: Sleep Last Admin: 11/04/19 02:19 Dose: 15 mg Documented by: Discontinued Medications Acetaminophen (Tylenol) 650 mg PO NOW ONE Stop: 10/28/19 18:21 Last Admin: 10/28/19 18:30 Dose: 650 mg Documented by: Heparin Sodium (Porcine) (Heparin Sodium) 5,000 units SUBCUT Q8HR [facility] Heparin Sodium (Porcine) (Heparin Sodium) 5,000 units SUBCUT Q8HR [facility] Last Admin: 10/29/19 06:05 Dose: 5,000 units Documented by: Lidocaine HCl (Xylocaine 2% Viscous) 5 ml PO TIDAC [facility] Non-Formulary Medication (Omeprazole Magnesium [Prilosec Otc]) 20 mg PO DAILY [facility] Last Admin: 10/30/19 12:31 Dose: Not Given Documented by: Orphenadrine Citrate (Norflex) 60 mg IM ONETIME ONE Stop: 10/28/19 17:27 Last Admin: 10/28/19 17:36 Dose: 60 mg Documented by: Potassium Chloride (Klor-Con 10) 20 meq PO ONETIME ONE Stop: 10/31/19 11:01 Last Admin: 10/31/19 10:51 Dose: 20 meq Documented by: - Exam Quality Assessment: No: Supplemental Oxygen General: Alert, Oriented Neck: Supple Lungs: Clear to Auscultation, Normal Respiratory Effort Cardiovascular: Regular Rate, Regular Rhythm GI/Abdominal Exam: Normal Bowel Sounds, Soft, Non-Tender Extremities: No Pedal Edema Sepsis Event Note - Evaluation Sepsis Screening Result: No Definite Risk - Focused Exam Vital Signs: Vital Signs Temp Pulse Pulse Resp BP Pulse Ox 11/04/19 08:00 98.1 F 93 93 18 92/68 95 Date Exam was Performed: 11/04/19 Time Exam was Performed: 10:12 - Problem List & Annotations (1) Fracture of clavicle SNOMED Code(s): 91217759 Code(s): S42.009A - FRACTURE OF UNSP PART OF UNSP CLAVICLE, INIT FOR CLOS FX Status: Acute Current Visit: Yes Qualifiers: Encounter type: initial encounter Clavicle location: lateral end Fracture type: closed Fracture alignment: displaced Laterality: left Qualified Code(s): S42.032A - Displaced fracture of lateral end of left clavicle, initial encounter for closed fracture (2) Fever SNOMED Code(s): 415618953 Code(s): R50.9 - FEVER, UNSPECIFIED Status: Acute Current Visit: Yes (3) Sacral fracture, closed SNOMED Code(s): 070776852 Code(s): S32.10XA - UNSP FRACTURE OF SACRUM, INIT ENCNTR FOR CLOSED FRACTURE Status: Acute Current Visit: Yes (4) UTI (urinary tract infection) SNOMED Code(s): 05357459 Code(s): N39.0 - URINARY TRACT INFECTION, SITE NOT SPECIFIED Status: Acute Current Visit: Yes (5) Urinary retention SNOMED Code(s): 117381366 Code(s): R33.9 - RETENTION OF URINE, UNSPECIFIED Status: Acute Current Visit: Yes - Problem List Review Problem List Initiated/Reviewed/Updated: Yes - My Orders Last 24 Hours: My Active Orders 11/03/19 11:00 Remove Patch 1 ea TRDERM Q72H 11/04/19 10:15 Cyclobenzaprine [Flexeril] 10 mg PO BID 11/05/19 05:15 BASIC METABOLIC PANEL,BMP [CHEM] AM - Plan Plan:: 79-year-old with a history of lymphoma on chemotherapy last treatment 2 weeks ago. The patient has been living at home with . He was going down to the basement when she fell. She did not loose consciousness but was complaining of left hip, left shoulder, mid back pain following the fall. She was able to get up and walk right away. She was brought into the emergency room. She was noted to have left clavicular fracture. She was noted to have fever. She denies cough, no urinary burning, no diarrhea, no known fever or chills at home. X-ray of the left shoulder showed distal left clavicular level fracture possible fracture of the acromion. X-ray of the left hip, pelvis showed no apparent fracture or dislocation C-spine x-ray showed degenerative changes Thoracic spine x-ray showed no acute abnormality Lumbar x-ray showed grade [address] of the lumbar spine showed old L1 fracture CT of the pelvis showed 2 areas of sacral fracture Fall Back pain due to sacral fractures Left clavicular fracture, possible fracture of the acromion pain is still not well controlled Use left hand swing, follow-up with orthopedic surgery Pain is still not well controlled with Tylenol, oxycodone, Lidoderm, IV morphine, fentanyl patch add baclofen Continue physical and occupational therapy Heat pad to the back constipation improved continue to treat with senna, lactulose Fever Chest x-ray apparently shows no infiltrate Has urinary retention, Song catheter was placed Urine analysis was borderline Urine culture mixed abbey blood culture: Negative for now On ciprofloxacin - will stop today DVT prophylaxis with subcutaneous heparin
[2019-11-04] MEDS: Cyclobenzaprine 10 MG Tab PO SCH ×2 (10:32→20:02)
[2019-11-04] MEDS: Polyethylene Glycol 3350 Powder 17 GM Packet PO SCH (10:32)
[2019-11-04] MEDS: SIMETH MUCMEM SCH ×6 (15:16→20:05)
[2019-11-04] MEDS: ALUM HYDROX MUCMEM SCH ×6 (15:16→20:05)
[2019-11-04] MEDS: MAG HYDROX MUCMEM SCH ×6 (15:16→20:05)
[2019-11-04] MEDS: LIDOCAINE 2% MUCMEM SCH ×6 (15:16→20:05)
[2019-11-04] MEDS: DIPHENHYDRAMINE MUCMEM SCH ×6 (15:16→20:05)
[2019-11-04] MEDS ORDERED: Non-Formulary Medication 1 Each PO SCH (17:00)
[2019-11-04] MEDS: Sodium Chloride 0.9% 10 ML Syringe FLUSH PRN ×2 (17:49→21:53)
[2019-11-04] MEDS: Docusate Sodium 100 MG Cap PO SCH (19:59)
[2019-11-04] MEDS: CHECK TRDERM SCH (20:01)
[2019-11-05] MEDS: Heparin Sodium 5,000 Units/ML Vial SUBCUT SCH (06:27)
[2019-11-05] MEDS: Pantoprazole 40 MG Tab.CR PO SCH (06:28)
[2019-11-05] MEDS: Lidocaine 2% Viscous Solution 15 ML Cup PO SCH ×3 (06:35→13:05)
[2019-11-05 07:04] LABS: ANION GAP 13.5 mEq/L (7-13); CHLORIDE,CL 100 mmol/L (98-107); SODIUM,NA 134 mmol/L (136-145)
[2019-11-05] MEDS ORDERED: diphenhydrAMINE 12.5 MG/5 ML Liquid 5 ML UD Cup ONE (07:43)
[2019-11-05] MEDS ORDERED: Lidocaine 2% Viscous Solution 15 ML Cup ONE (07:43)
[2019-11-05] MEDS: oxyCODONE 5 MG Tab PO PRN ×2 (08:13→13:09)
[2019-11-05] MEDS: Morphine 2 MG/ML SYRINGE IVPUSH PRN ×2 (08:39→13:02)
[2019-11-05] MEDS: Multivitamins,Therapeutic Tab PO SCH (09:06)
[2019-11-05] MEDS: Potassium Chloride 10 MEQ Tab.ER PO SCH (09:06)
[2019-11-05] MEDS: Cyclobenzaprine 10 MG Tab PO SCH (09:06)
[2019-11-05] MEDS: Polyethylene Glycol 3350 Powder 17 GM Packet PO SCH (09:09)
[2019-11-05] MEDS: FEBUXOSTAT 80 MG PO SCH (09:11)
[2019-11-05] MEDS: Docusate Sodium 100 MG Cap PO SCH (09:12)
[2019-11-05] MEDS: Nystatin Susp 100,000 Unit/ML 5 ML UD Cup PO SCH ×2 (09:14→13:03)
[2019-11-05] MEDS: MAG HYDROX MUCMEM SCH ×3 (09:32)
[2019-11-05] MEDS: LIDOCAINE 2% MUCMEM SCH ×3 (09:32)
[2019-11-05] MEDS: SIMETH MUCMEM SCH ×3 (09:32)
[2019-11-05] MEDS: DIPHENHYDRAMINE MUCMEM SCH ×3 (09:32)
[2019-11-05] MEDS: ALUM HYDROX MUCMEM SCH ×3 (09:32)
--- NOTE | 2019-11-05 10:33 | PCM.DCSUM1 ---
Discharge Summary - Hospital Course Free Text/Narrative:: 79-year-old with a history of lymphoma on chemotherapy last treatment 2 weeks ago. The patient has been living at home with . He was going down to the basement when she fell. She did not loose consciousness but was complaining of left hip, left shoulder, mid back pain following the fall. She was able to get up and walk right away. She was brought into the emergency room. She was noted to have left clavicular fracture. She was noted to have fever. She denies cough, no urinary burning, no diarrhea, no known fever or chills at home. X-ray of the left shoulder showed distal left clavicular level fracture possible fracture of the acromion. X-ray of the left hip, pelvis showed no apparent fracture or dislocation C-spine x-ray showed degenerative changes Thoracic spine x-ray showed no acute abnormality Lumbar x-ray showed grade [address] of the lumbar spine showed old L1 fracture CT of the pelvis showed 2 areas of sacral fracture Fall Back pain due to sacral fractures Left clavicular fracture, possible fracture of the acromion pain is still not well controlled Use left hand swing, follow-up with orthopedic surgery Pain is still better controlled with Tylenol, oxycodone, Lidoderm, IV morphine, fentanyl patch, baclofen unable to ambulate independently Continue physical and occupational therapy in a swing bed setting Heat pad to the back constipation improved continue to treat with senna, lactulose Fever Chest x-ray apparently shows no infiltrate Has urinary retention, Dumont catheter was placed Urine analysis was borderline Urine culture mixed abbey blood culture: Negative for now was treated with ciprofloxacin - Discharge Data Discharge Date: 11/05/19 Discharge Disposition: DC/Tfer W/I Hosp To Swing [facility] Condition: Fair - Referral to Home Health Primary Care Physician: Amaya Olivo NP - Discharge Diagnosis/Problem(s) (1) Fracture of clavicle SNOMED Code(s): 21713934 ICD Code: S42.009A - FRACTURE OF UNSP PART OF UNSP CLAVICLE, INIT FOR CLOS FX Status: Acute Current Visit: Yes Qualifiers: Encounter type: initial encounter Clavicle location: lateral end Fracture type: closed Fracture alignment: displaced Laterality: left Qualified Code(s): S42.032A - Displaced fracture of lateral end of left clavicle, initial encounter for closed fracture (2) Fever SNOMED Code(s): 918956462 ICD Code: R50.9 - FEVER, UNSPECIFIED Status: Acute Current Visit: Yes (3) Sacral fracture, closed SNOMED Code(s): 951061359 ICD Code: S32.10XA - UNSP FRACTURE OF SACRUM, INIT ENCNTR FOR CLOSED FRACTURE Status: Acute Current Visit: Yes (4) UTI (urinary tract infection) SNOMED Code(s): 16487211 ICD Code: N39.0 - URINARY TRACT INFECTION, SITE NOT SPECIFIED Status: Acute Current Visit: Yes (5) Urinary retention SNOMED Code(s): 093347650 ICD Code: R33.9 - RETENTION OF URINE, UNSPECIFIED Status: Acute Current Visit: Yes - Patient Summary/Data Consults: Consultations 10/28/19 20:27 OT Evaluation and Treatment [CONS] Routine PT Evaluation and Treatment [CONS] Routine - Patient Instructions Diet: Heart Healthy Diet Activity: As Tolerated - Discharge Plan *PRESCRIPTION DRUG MONITORING PROGRAM REVIEWED*: Not Applicable *COPY OF PRESCRIPTION DRUG MONITORING REPORT IN PATIENT GURU: Not Applicable Home Medications: Home Meds Calcium Carbonate/Vitamin D3 [Calcium-Vitamin D] 1 tab PO DAILY 07/15/14 [History] Multivitamin [Daily Vitamin] 1 each PO DAILY 07/15/14 [History] Ascorbate Calcium/Bioflavonoid [Marisol-C 500 MG] 1 tab PO DAILY 10/15/18 [History] Cholecalciferol (Vitamin D3) [Vitamin D3] 1,000 units PO DAILY 10/15/18 [History] Vit C/E/Zn/Coppr/Lutein/Zeaxan [Preservision Areds 2 Softgel] 1 tab PO DAILY 10/15/18 [History] Omeprazole Magnesium [Prilosec Otc] 20 mg PO DAILY 10/22/19 [History] ondansetron HCL [Ondansetron HCl] 8 mg PO DAILY PRN 10/22/19 [History] oxyCODONE 5 mg PO BID PRN 10/22/19 [History] Febuxostat [Uloric] 80 mg PO DAILY 10/28/19 [History] Oxygen Therapy Mode: Room Air - Discharge Summary/Plan Comment DC Time >30 min.: No - General Info Date of Service: 11/05/19 - Review of Systems General: Reports: Weakness. Denies: Fever Pulmonary: Denies: Shortness of Breath Cardiovascular: Denies: Chest Pain, Edema Gastrointestinal: Denies: Abdominal Pain Musculoskeletal: Reports: Back Pain Neurological: Denies: Confusion - Patient Data Vitals - Most Recent: Last Vital Signs Temp 98.0 F 11/05/19 07:56 Pulse 91 11/05/19 07:56 Resp 16 11/05/19 07:56 BP 93/53 L 11/05/19 07:56 Pulse Ox 98 11/05/19 07:56 Weight - Most Recent: 94 lb 12.8 oz I&O - Last 24 hours: Intake & Output 11/04/19 11/05/19 11/05/19 22:59 06:59 14:59 Intake Total 400 Output Total 950 210 200 Balance -550 -210 -200 Lab Results - Last 24 hrs: Laboratory Results - last 24 hr 11/05/19 Range/Units 06:15 Sodium 134 L (136-145) mmol/L Potassium 4.5 (3.5-5.1) mmol/L Chloride 100 (98-107) mmol/L Carbon Dioxide 25 (21-32) mmol/L Anion Gap 13.5 H (7-13) mEq/L BUN 8 (7-18) mg/dL Creatinine 0.64 (0.55-1.02) mg/dL Est Cr Clr Drug Dosing 49.18 mL/min Estimated GFR (MDRD) > 60 Glucose 101 H (74-99) mg/dL Calcium 8.3 L (8.5-10.1) mg/dL Med Orders - Current: Current Medications Acetaminophen (Tylenol) 650 mg PO Q4H PRN PRN Reason: Pain (Mild 1-3)/fever Last Admin: 11/04/19 08:48 Dose: 650 mg Documented by: Lidocaine HCl 30 ml/Diphenhydramine HCl 75 mg/ Al Hydroxide/Mg Hydroxide 30 ml 0 ml MUCMEM QID [facility] Last Admin: 11/05/19 09:32 Dose: Not Given Documented by: Cyclobenzaprine HCl (Flexeril) 10 mg PO BID [facility] Last Admin: 11/05/19 09:06 Dose: 10 mg Documented by: Docusate Sodium (Colace) 100 mg PO BID [facility] Last Admin: 11/05/19 09:12 Dose: 100 mg Documented by: Fentanyl (Duragesic) 25 mcg TRDERM Q72H [facility] Last Admin: 11/03/19 11:10 Dose: 25 mcg Documented by: Heparin Sodium (Porcine) (Heparin Sodium) 5,000 units SUBCUT Q8HR [facility] Last Admin: 11/05/19 06:27 Dose: 5,000 units Documented by: Lactulose (Cephulac) 20 gm PO BID PRN PRN Reason: constipation Last Admin: 11/01/19 08:49 Dose: 20 gm Documented by: Lidocaine HCl (Xylocaine 2% Viscous) 5 ml PO TIDAC [facility] Last Admin: 11/05/19 09:55 Dose: 5 ml Documented by: Miscellaneous Information (Remove Patch) 1 ea TRDERM Q24H [facility] Last Admin: 11/04/19 17:37 Dose: 1 ea Documented by: Miscellaneous Information (Check Patch) 1 ea TRDERM BEDTIME [facility] Last Admin: 11/04/19 20:01 Dose: Not Given Documented by: Miscellaneous Information (Remove Patch) 1 ea TRDERM Q72H [facility] Last Admin: 11/03/19 11:10 Dose: 1 ea Documented by: Morphine Sulfate (Morphine) 2 mg IVPUSH Q2H PRN PRN Reason: Pain (severe 7-10) Last Admin: 11/05/19 08:39 Dose: 2 mg Documented by: Multivitamins (Thera) 1 each PO DAILY [facility] Last Admin: 11/05/19 09:06 Dose: 1 each Documented by: Febuxostat [Uloric] (80 Mg Tab *Own Med*) 80 mg PO DAILY [facility] Last Admin: 11/05/19 09:11 Dose: 80 mg Documented by: Nystatin (Mycostatin) 5 ml PO QID [facility] Last Admin: 11/05/19 09:14 Dose: 5 ml Documented by: Ondansetron HCl (Zofran Odt) 8 mg PO DAILY PRN PRN Reason: Nausea Last Admin: 10/30/19 08:19 Dose: 8 mg Documented by: Ondansetron HCl (Zofran) 4 mg IVPUSH Q8HR PRN PRN Reason: Nausea/Vomiting Last Admin: 11/01/19 11:48 Dose: 4 mg Documented by: Oxycodone HCl (Oxycodone) 5 mg PO Q4H PRN PRN Reason: Pain (moderate 4-6) Last Admin: 11/05/19 08:13 Dose: 5 mg Documented by: Pantoprazole Sodium (Protonix) 40 mg PO ACBREAKFAST [facility] Last Admin: 11/05/19 06:28 Dose: 40 mg Documented by: Polyethylene Glycol (Miralax) 17 gm PO DAILY [facility] Last Admin: 11/05/19 09:09 Dose: 17 gm Documented by: Potassium Chloride (Klor-Con 10) 20 meq PO DAILY [facility] Senna/Docusate Sodium (Senna Plus) 1 tab PO BID [facility] Last Admin: 11/05/19 09:07 Dose: 1 tab Documented by: Sodium Chloride (Saline Flush) 10 ml FLUSH ASDIRECTED PRN PRN Reason: Keep Vein Open Last Admin: 11/04/19 21:53 Dose: 10 ml Documented by: Temazepam (Restoril) 15 mg PO BEDTIME PRN PRN Reason: Sleep Last Admin: 11/04/19 22:10 Dose: 15 mg Documented by: Discontinued Medications Acetaminophen (Tylenol) 650 mg PO NOW ONE Stop: 10/28/19 18:21 Last Admin: 10/28/19 18:30 Dose: 650 mg Documented by: Ciprofloxacin (Ciprofloxacin Hcl) 250 mg PO BID [facility] Last Admin: 11/04/19 08:47 Dose: 250 mg Documented by: Diphenhydramine HCl (Benadryl) Confirm Administered Dose 62.5 mg .ROUTE .STK-MED ONE Stop: 11/05/19 07:44 Last Admin: 11/05/19 09:32 Dose: Not Given Documented by: Docusate Sodium (Colace) 100 mg PO BID PRN PRN Reason: Constipation Last Admin: 11/03/19 08:38 Dose: 100 mg Documented by: Heparin Sodium (Porcine) (Heparin Sodium) 5,000 units SUBCUT Q8HR [facility] Heparin Sodium (Porcine) (Heparin Sodium) 5,000 units SUBCUT Q8HR [facility] Last Admin: 10/29/19 06:05 Dose: 5,000 units Documented by: Lidocaine (Lidoderm 5%) 700 mg TOP Q24H [facility] Last Admin: 11/04/19 06:33 Dose: 700 mg Documented by: Lidocaine HCl (Xylocaine 2% Viscous) 5 ml PO TIDAC [facility] Lidocaine HCl (Xylocaine 2% Viscous) Confirm Administered Dose 30 ml .ROUTE .STK -MED ONE Stop: 11/05/19 07:44 Last Admin: 11/05/19 09:54 Dose: Not Given Documented by: Non-Formulary Medication (Omeprazole Magnesium [Prilosec Otc]) 20 mg PO DAILY [facility] Last Admin: 10/30/19 12:31 Dose: Not Given Documented by: Orphenadrine Citrate (Norflex) 60 mg IM ONETIME ONE Stop: 10/28/19 17:27 Last Admin: 10/28/19 17:36 Dose: 60 mg Documented by: Potassium Chloride (Klor-Con 10) 20 meq PO BIDMEALS [facility] Last Admin: 11/05/19 09:06 Dose: 20 meq Documented by: Potassium Chloride (Klor-Con 10) 20 meq PO ONETIME ONE Stop: 10/31/19 11:01 Last Admin: 10/31/19 10:51 Dose: 20 meq Documented by: - Exam General: Reports: Alert, Oriented Neck: Reports: Supple Lungs: Reports: Clear to Auscultation, Normal Respiratory Effort Cardiovascular: Reports: Regular Rate, Regular Rhythm GI/Abdominal Exam: Normal Bowel Sounds, Soft, Non-Tender Extremities: No Pedal Edema Skin: Reports: Warm, Dry
[2019-11-05 11:29] VITALS: BP 99/55; PULSE 83
[2019-11-06] MEDS ORDERED: Potassium Chloride 10 MEQ Tab.ER PO SCH (09:00)
== END 2019-11-05 13:13 | disposition swing bed (61) | DRG 563 ==
LOC: DL.ED 17:00 → DL.MS 18:59 → UNDOADMOB 18:59 → DL.MS 20:24 → OBSVTOIN 10-30 14:46
PROVIDERS: ADMIT Internal Medicine; ATTEND Internal Medicine
DX: S42.032A Displaced fracture of lateral end of left clavicle, initial encounter for closed fracture (principal); S32.10XA Unspecified fracture of sacrum, initial encounter for closed fracture; M25.552 Pain in left hip; M54.5 Low back pain; N39.0 Urinary tract infection, site not specified; W10.9XXA Fall (on) (from) unspecified stairs and steps, initial encounter; R50.9 Fever, unspecified; H40.9 Unspecified glaucoma; C85.90 Non-Hodgkin lymphoma, unspecified, unspecified site; R33.8 Other retention of urine; E87.6 Hypokalemia; E78.00 Pure hypercholesterolemia, unspecified; K59.09 Other constipation; R33.9 Retention of urine, unspecified; N18.9 Chronic kidney disease, unspecified; D64.9 Anemia, unspecified; D69.6 Thrombocytopenia, unspecified; C91.10 Chronic lymphocytic leukemia of B-cell type not having achieved remission; C88.4 Extranodal marginal zone B-cell lymphoma of mucosa-associated lymphoid tissue [MALT-lymphoma]; M10.9 Gout, unspecified; Z88.6 Allergy status to analgesic agent; M81.0 Age-related osteoporosis without current pathological fracture; Z79.899 Other long term (current) drug therapy; Z88.1 Allergy status to other antibiotic agents; Z88.5 Allergy status to narcotic agent; Z98.49 Cataract extraction status, unspecified eye; Z92.21 Personal history of antineoplastic chemotherapy; W19.XXXA Unspecified fall, initial encounter; Z88.8 Allergy status to other drugs, medicaments and biological substances
CPT/HCPCS: 36415 ×3; 71045; 72040; 72070; 72100; 72131; 72192; 73030; 73502; 80048 ×2; 80053; 81001; 85025 ×3; 87040 ×2; 87086; 96372; 97162; 97165; 99284; 99285; A9270 ×21; J1644 ×3; J2270; J2360; 96374; 97116-GP; 97530-GO; G0378; J2405

== ENCOUNTER 2019-11-05 11:03 | Inpatient (IN) | payer MEDICARE, OTHER ==
[2019-11-05] MEDS ORDERED: Lactulose Soln 10 GM/15 ML 30 ML UD Cup PO PRN (12:10)
[2019-11-05] MEDS ORDERED: Ondansetron 4 MG Tab.DIS PO PRN (12:10)
[2019-11-05] MEDS ORDERED: Sodium Chloride 0.9% 10 ML Syringe FLUSH PRN (12:10)
--- NOTE | 2019-11-05 12:15 | PCM.HP ---
H&P History of Present Illness - General Date of Service: 11/05/19 Admit Problem/Dx: Admission Diagnosis/Problem Admission Diagnosis/Problem Weakness - History of Present Illness Initial Comments - Free Text/Narative: 79-year-old with a history of lymphoma on chemotherapy last treatment 2 weeks ago. The patient has been living at home with . He was going down to the basement when she fell. She did not loose consciousness but was complaining of left hip, left shoulder, mid back pain following the fall. She was able to get up and walk right away. She was brought into the emergency room. She was noted to have left clavicular fracture. She was noted to have fever. She denies cough, no urinary burning, no diarrhea, no known fever or chills at home. X-ray of the left shoulder showed distal left clavicular level fracture possible fracture of the acromion. X-ray of the left hip, pelvis showed no apparent fracture or dislocation C-spine x-ray showed degenerative changes Thoracic spine x-ray showed no acute abnormality Lumbar x-ray showed grade [address] of the lumbar spine showed old L1 fracture CT of the pelvis showed 2 areas of sacral fracture Fall Back pain due to sacral fractures Left clavicular fracture, possible fracture of the acromion pain is still not well controlled Use left hand swing, follow-up with orthopedic surgery Pain is still better controlled with Tylenol, oxycodone, Lidoderm, IV morphine, fentanyl patch, baclofen unable to ambulate independently Continue physical and occupational therapy in a swing bed setting Heat pad to the back constipation improved continue to treat with senna, lactulose Fever Chest x-ray apparently shows no infiltrate Has urinary retention, Dumont catheter was placed Urine analysis was borderline Urine culture mixed abbey blood culture: Negative for now was treated with ciprofloxacin - Related Data Allergies/Adverse Reactions: Allergies Allergy/AdvReac Type Severity Reaction Status Date / Time allopurinol Allergy UNKNOWN Verified 10/28/19 17:09 amoxicillin Allergy Hives Verified 10/28/19 17:09 clavulanic acid Allergy Hives Verified 10/28/19 17:09 [From Augmentin] tramadol Allergy Nausea Verified 10/28/19 17:09 Home Medications: Home Meds Calcium Carbonate/Vitamin D3 [Calcium-Vitamin D] 1 tab PO DAILY 07/15/14 [History] Multivitamin [Daily Vitamin] 1 each PO DAILY 07/15/14 [History] Ascorbate Calcium/Bioflavonoid [Marisol-C 500 MG] 1 tab PO DAILY 10/15/18 [History] Cholecalciferol (Vitamin D3) [Vitamin D3] 1,000 units PO DAILY 10/15/18 [History] Vit C/E/Zn/Coppr/Lutein/Zeaxan [Preservision Areds 2 Softgel] 1 tab PO DAILY 10/15/18 [History] Omeprazole Magnesium [Prilosec Otc] 20 mg PO DAILY 10/22/19 [History] ondansetron HCL [Ondansetron HCl] 8 mg PO DAILY PRN 10/22/19 [History] oxyCODONE 5 mg PO BID PRN 10/22/19 [History] Febuxostat [Uloric] 80 mg PO DAILY 10/28/19 [History] Past Medical History HEENT History: Reports: Glaucoma Cardiovascular History: Reports: High Cholesterol Respiratory History: Reports: None Gastrointestinal History: Reports: None, Chronic Constipation Genitourinary History: Reports: Chronic Renal Insuffiency [employer] History: Reports: Musculoskeletal History: Reports: Gout Neurological History: Reports: None Psychiatric History: Reports: None Endocrine/Metabolic History: Reports: Osteoporosis Other Endocrine/Metabolic History: HX OF ELEVATED TSH Hematologic History: Reports: Anemia, Blood Transfusion(s), Other (See Below) Other Hematologic History: ELEVATED BLOOD URIC ACID LEVEL. CHRONIC LYMPHOCYTIC LEUKEMIA Immunologic History: Reports: None Oncologic (Cancer) History: Reports: Leukemia, Lymphoma, Other (See Below) Other Oncologic History: gastric lymphoma Dermatologic History: Reports: None - Infectious Disease History Infectious Disease History: Reports: Measles - Past Surgical History Head Surgeries/Procedures: Reports: None HEENT Surgical History: Reports: Cataract Surgery, Other (See Below) Other HEENT Surgeries/Procedures: S/P ENTROPION REPAIR LEFT Cardiovascular Surgical History: Reports: None GI Surgical History: Reports: Colonoscopy Female Surgical History: Reports: None Musculoskeletal Surgical History: Reports: None Social & Family History - Family History Family Medical History: Noncontributory - Caffeine Use Caffeine Use: Reports: None Caffeine Use Comment: 1.5 cups daily H&P Review of Systems - Review of Systems: Review Of Systems: See Below General: Denies: Fever Pulmonary: Denies: Shortness of Breath Cardiovascular: Denies: Chest Pain, Edema Gastrointestinal: Denies: Abdominal Pain Genitourinary: Denies: Dysuria Musculoskeletal: Reports: Back Pain Exam - Exam Exam: See Below - Exam General: Alert, Oriented Neck: Supple Lungs: Clear to Auscultation, Normal Respiratory Effort Cardiovascular: Regular Rate, Regular Rhythm GI/Abdominal Exam: Normal Bowel Sounds, Soft, Non-Tender Extremities: No Pedal Edema Problem List Initiated/Reviewed/Updated: Yes Orders Last 24hrs: Active Orders 24 hr Category Date Time Status Admission Status [Patient Status] [ADT] Routine ADT 11/05/19 12:13 Active Antiembolic Devices [RC] PER UNIT ROUTINE Care 11/05/19 12:10 Active Antiembolic Devices [RC] PER UNIT ROUTINE Care 11/05/19 12:10 Active Communication Order [RC] ROUTINE Care 11/05/19 12:10 Active Dietary Supplements [RC] DAILY Care 11/05/19 12:10 Active Height [Height and Weight] [RC] DAILY Care 11/05/19 12:10 Active Oxygen Therapy [RC] PRN Care 11/05/19 12:10 Active Peripheral IV Care [RC] . DIRECTED Care 11/05/19 12:10 Active Up With Assistance [RC] ASDIRECTED Care 11/05/19 12:10 Active Urinary Catheter Assessment [RC] ASDIRECTED Care 11/05/19 12:10 Active VTE/DVT Education [RC] PER UNIT ROUTINE Care 11/05/19 12:10 Active Vital Signs [RC] QSHIFT Care 11/05/19 12:10 Active OT Evaluation and Treatment [CONS] Routine Cons 11/05/19 12:10 Active PT Evaluation and Treatment [CONS] Routine Cons 11/05/19 12:10 Active Regular Diet [DIET] Diet 11/05/19 Breakfast Active Acetaminophen [Tylenol] Med 11/05/19 12:10 Ordered 650 mg PO Q4H PRN Check Patch Med 11/05/19 21:00 Ordered 1 ea TRDERM BEDTIME Cyclobenzaprine [Flexeril] Med 11/05/19 21:00 Ordered 10 mg PO BID Docusate Sodium [Colace] Med 11/05/19 21:00 Ordered 100 mg PO BID Docusate Sodium/Sennosides [Senna Plus] Med 11/05/19 21:00 Ordered 1 tab PO BID Febuxostat [Uloric] Med 11/06/19 09:00 Ordered 80 mg PO DAILY Heparin Sodium Med 11/05/19 14:00 Ordered 5,000 units SUBCUT Q8HR Lactulose [Cephulac] Med 11/05/19 12:10 Ordered 20 gm PO BID PRN Lidocaine 2% [Xylocaine 2% Viscous] Med 11/05/19 16:00 Ordered 5 ml PO TIDAC Morphine Med 11/05/19 12:10 Ordered 2 mg IVPUSH Q2H PRN Multivitamins,Therapeutic [Thera] Med 11/06/19 09:00 Ordered 1 each PO DAILY Nystatin [Mycostatin] Med 11/05/19 13:00 Ordered 5 ml PO QID Ondansetron [Zofran ODT] Med 11/05/19 12:10 Ordered 8 mg PO DAILY PRN Ondansetron [Zofran] Med 11/05/19 12:10 Ordered 4 mg IVPUSH Q8HR PRN Pantoprazole [ProTONIX] Med 11/06/19 06:00 Ordered 40 mg PO ACBREAKFAST Potassium Chloride [Klor-Con 10] Med 11/06/19 09:00 Ordered 20 meq PO DAILY Remove Patch Med 11/05/19 18:00 Ordered 1 ea TRDERM Q24H Remove Patch Med 11/06/19 11:00 Ordered 1 ea TRDERM Q72H Sodium Chloride 0.9% [Saline Flush] Med 11/05/19 12:10 Ordered 10 ml FLUSH ASDIRECTED PRN Sodium Chloride 0.9% [Saline Flush] Med 11/05/19 12:10 Ordered 10 ml FLUSH ASDIRECTED PRN Temazepam [Restoril] Med 11/05/19 12:10 Ordered 15 mg PO BEDTIME PRN fentaNYL [Duragesic] Med 11/06/19 11:00 Ordered 25 mcg TRDERM Q72H oxyCODONE Med 11/05/19 12:10 Ordered 5 mg PO Q4H PRN polyethylene glycoL 3350 [MiraLAX] Med 11/06/19 09:00 Ordered 17 gm PO DAILY Antiembolic Hose [OM.PC] Per Unit Routine Oth 11/05/19 12:10 Ordered K Pad [Heat Therapy] [OM.PC] Routine Oth 11/05/19 12:10 Ordered Peripheral IV Insertion Adult [OM.PC] Routine Oth 11/05/19 12:10 Ordered Saline Lock Insert [OM.PC] Routine Oth 11/05/19 12:10 Ordered Resuscitation Status Routine Resus Stat 11/05/19 12:10 Ordered Medication Orders Acetaminophen (Tylenol) 650 mg PO Q4H PRN PRN Reason: Pain (Mild 1-3)/fever Cyclobenzaprine HCl (Flexeril) 10 mg PO BID [facility] Docusate Sodium (Colace) 100 mg PO BID [facility] Fentanyl (Duragesic) 25 mcg TRDERM Q72H [facility] Heparin Sodium (Porcine) (Heparin Sodium) 5,000 units SUBCUT Q8HR [facility] Lactulose (Cephulac) 20 gm PO BID PRN PRN Reason: constipation Lidocaine HCl (Xylocaine 2% Viscous) 5 ml PO TIDAC [facility] Miscellaneous Information (Remove Patch) 1 ea TRDERM Q24H [facility] Miscellaneous Information (Check Patch) 1 ea TRDERM BEDTIME [facility] Miscellaneous Information (Remove Patch) 1 ea TRDERM Q72H [facility] Morphine Sulfate (Morphine) 2 mg IVPUSH Q2H PRN PRN Reason: Pain (severe 7-10) Multivitamins (Thera) 1 each PO DAILY [facility] Non-Formulary Medication (Febuxostat [Uloric]) 80 mg PO DAILY [facility] Nystatin (Mycostatin) 5 ml PO QID [facility] Ondansetron HCl (Zofran Odt) 8 mg PO DAILY PRN PRN Reason: Nausea Ondansetron HCl (Zofran) 4 mg IVPUSH Q8HR PRN PRN Reason: Nausea/Vomiting Oxycodone HCl (Oxycodone) 5 mg PO Q4H PRN PRN Reason: Pain (moderate 4-6) Pantoprazole Sodium (Protonix) 40 mg PO ACBREAKFAST [facility] Polyethylene Glycol (Miralax) 17 gm PO DAILY [facility] Potassium Chloride (Klor-Con 10) 20 meq PO DAILY [facility] Senna/Docusate Sodium (Senna Plus) 1 tab PO BID [facility] Sodium Chloride (Saline Flush) 10 ml FLUSH ASDIRECTED PRN PRN Reason: Keep Vein Open Sodium Chloride (Saline Flush) 10 ml FLUSH ASDIRECTED PRN PRN Reason: Keep Vein Open Temazepam (Restoril) 15 mg PO BEDTIME PRN PRN Reason: Sleep
[2019-11-05] MEDS ORDERED: Ondansetron 4 MG/2 ML SDV IVPUSH PRN (13:14)
[2019-11-05] MEDS: Nystatin Susp 100,000 Unit/ML 5 ML UD Cup PO SCH ×3 (13:54→21:26)
[2019-11-05] MEDS: Heparin Sodium 5,000 Units/ML Vial SUBCUT SCH ×2 (14:52→21:26)
[2019-11-05] MEDS: oxyCODONE 5 MG Tab PO PRN ×2 (17:48→21:52)
[2019-11-05] MEDS: Lidocaine 2% Viscous Solution 15 ML Cup PO SCH (17:48)
[2019-11-05] MEDS: Morphine 2 MG/ML SYRINGE IVPUSH PRN ×2 (18:19→21:31)
[2019-11-05] MEDS: CHECK TRDERM SCH (21:23)
[2019-11-05] MEDS: Cyclobenzaprine 10 MG Tab PO SCH (21:25)
[2019-11-05] MEDS: Docusate Sodium 100 MG Cap PO SCH (21:25)
[2019-11-05] MEDS: Sodium Chloride 0.9% 10 ML Syringe FLUSH PRN ×2 (21:34→21:48)
[2019-11-05] MEDS: Temazepam 15 MG Cap PO PRN (21:52)
[2019-11-06] MEDS: Pantoprazole 40 MG Tab.CR PO SCH (05:52)
[2019-11-06] MEDS: Lidocaine 2% Viscous Solution 15 ML Cup PO SCH ×3 (05:52→16:17)
[2019-11-06] MEDS: oxyCODONE 5 MG Tab PO PRN ×3 (05:53→21:48)
[2019-11-06] MEDS: Heparin Sodium 5,000 Units/ML Vial SUBCUT SCH ×3 (05:59→21:50)
[2019-11-06] MEDS: Cyclobenzaprine 10 MG Tab PO SCH ×2 (08:46→21:50)
[2019-11-06] MEDS: Docusate Sodium 100 MG Cap PO SCH ×2 (08:46→21:48)
[2019-11-06] MEDS: Potassium Chloride 10 MEQ Tab.ER PO SCH (08:46)
[2019-11-06] MEDS: Multivitamins,Therapeutic Tab PO SCH (08:47)
[2019-11-06] MEDS: Nystatin Susp 100,000 Unit/ML 5 ML UD Cup PO SCH ×4 (08:47→21:50)
[2019-11-06] MEDS: Polyethylene Glycol 3350 Powder 17 GM Packet PO SCH (08:47)
[2019-11-06] MEDS: Sodium Chloride 0.9% 10 ML Syringe FLUSH PRN ×2 (09:18→21:56)
[2019-11-06] MEDS: Morphine 2 MG/ML SYRINGE IVPUSH PRN ×2 (09:18→21:56)
[2019-11-06] MEDS: fentaNYL 25 MCG/HR Transdermal Patch TRDERM SCH (12:47)
[2019-11-06] MEDS: Acetaminophen 325 MG Tab PO PRN (16:27)
[2019-11-06] MEDS: Temazepam 15 MG Cap PO PRN (21:45)
[2019-11-06] MEDS: CHECK TRDERM SCH (22:02)
[2019-11-07] MEDS: oxyCODONE 5 MG Tab PO PRN ×5 (05:13→20:44)
[2019-11-07] MEDS: Pantoprazole 40 MG Tab.CR PO SCH (05:14)
[2019-11-07] MEDS: Heparin Sodium 5,000 Units/ML Vial SUBCUT SCH ×4 (05:15→21:13)
[2019-11-07] MEDS: Lidocaine 2% Viscous Solution 15 ML Cup PO SCH ×3 (05:24→17:06)
[2019-11-07] MEDS: Sodium Chloride 0.9% 10 ML Syringe FLUSH PRN ×2 (08:47→20:46)
[2019-11-07] MEDS: Cyclobenzaprine 10 MG Tab PO SCH ×2 (08:52→20:43)
[2019-11-07] MEDS: Docusate Sodium 100 MG Cap PO SCH ×2 (08:52→20:44)
[2019-11-07] MEDS: Multivitamins,Therapeutic Tab PO SCH (08:52)
[2019-11-07] MEDS: Polyethylene Glycol 3350 Powder 17 GM Packet PO SCH (08:52)
[2019-11-07] MEDS: Potassium Chloride 10 MEQ Tab.ER PO SCH (08:52)
[2019-11-07] MEDS: Nystatin Susp 100,000 Unit/ML 5 ML UD Cup PO SCH ×4 (08:52→20:43)
[2019-11-07] MEDS: Temazepam 15 MG Cap PO PRN (20:44)
[2019-11-07] MEDS: CHECK TRDERM SCH (21:11)
[2019-11-08] MEDS: Heparin Sodium 5,000 Units/ML Vial SUBCUT SCH ×3 (05:05→21:16)
[2019-11-08] MEDS: Pantoprazole 40 MG Tab.CR PO SCH (05:06)
[2019-11-08] MEDS: oxyCODONE 5 MG Tab PO PRN ×4 (05:06→21:12)
[2019-11-08] MEDS: Lidocaine 2% Viscous Solution 15 ML Cup PO SCH ×3 (06:10→11:35)
[2019-11-08] MEDS: Cyclobenzaprine 10 MG Tab PO SCH ×2 (08:39→21:14)
[2019-11-08] MEDS: Potassium Chloride 10 MEQ Tab.ER PO SCH (08:39)
[2019-11-08] MEDS: Multivitamins,Therapeutic Tab PO SCH (08:40)
[2019-11-08] MEDS: Polyethylene Glycol 3350 Powder 17 GM Packet PO SCH (08:40)
[2019-11-08] MEDS: Docusate Sodium 100 MG Cap PO SCH ×2 (08:40→21:14)
[2019-11-08] MEDS: Nystatin Susp 100,000 Unit/ML 5 ML UD Cup PO SCH ×4 (08:40→21:13)
[2019-11-08] MEDS: Acetaminophen 325 MG Tab PO PRN ×2 (15:27→21:13)
[2019-11-08] MEDS: Temazepam 15 MG Cap PO PRN (21:13)
[2019-11-08] MEDS: CHECK TRDERM SCH (21:14)
[2019-11-09] MEDS: Sodium Chloride 0.9% 10 ML Syringe FLUSH PRN ×2 (01:03→08:49)
[2019-11-09] MEDS: Acetaminophen 325 MG Tab PO PRN ×2 (05:47→13:11)
[2019-11-09] MEDS: Pantoprazole 40 MG Tab.CR PO SCH (05:47)
[2019-11-09] MEDS: Heparin Sodium 5,000 Units/ML Vial SUBCUT SCH ×3 (05:49→21:03)
[2019-11-09] MEDS: oxyCODONE 5 MG Tab PO PRN ×4 (05:49→18:25)
[2019-11-09] MEDS: Lidocaine 2% Viscous Solution 15 ML Cup PO SCH ×3 (07:45→16:47)
[2019-11-09] MEDS: Polyethylene Glycol 3350 Powder 17 GM Packet PO SCH (08:45)
[2019-11-09] MEDS: Potassium Chloride 10 MEQ Tab.ER PO SCH (08:46)
[2019-11-09] MEDS: Cyclobenzaprine 10 MG Tab PO SCH ×2 (08:46→21:02)
[2019-11-09] MEDS: Docusate Sodium 100 MG Cap PO SCH ×2 (08:46→21:02)
[2019-11-09] MEDS: Nystatin Susp 100,000 Unit/ML 5 ML UD Cup PO SCH ×4 (08:46→21:03)
[2019-11-09] MEDS: Multivitamins,Therapeutic Tab PO SCH (08:46)
[2019-11-09] MEDS: fentaNYL 25 MCG/HR Transdermal Patch TRDERM SCH (11:28)
[2019-11-09] MEDS: CHECK TRDERM SCH (21:03)
[2019-11-09] MEDS: Temazepam 15 MG Cap PO PRN (21:08)
[2019-11-10] MEDS: oxyCODONE 5 MG Tab PO PRN ×5 (01:27→20:58)
[2019-11-10] MEDS: Pantoprazole 40 MG Tab.CR PO SCH (06:05)
[2019-11-10] MEDS: Heparin Sodium 5,000 Units/ML Vial SUBCUT SCH ×3 (06:06→21:00)
[2019-11-10 06:22] LABS: ANION GAP 12.3 mEq/L (7-13); CHLORIDE,CL 97 mmol/L (98-107); SODIUM,NA 131 mmol/L (136-145)
[2019-11-10] MEDS: Lidocaine 2% Viscous Solution 15 ML Cup PO SCH ×3 (07:51→16:52)
--- NOTE | 2019-11-10 09:31 | PN ---
DATE: 11/10/2019 SUBJECTIVE: The patient is a 79-year-old lady with history of lymphoma and she was admitted after a fall and she sustained a left clavicular fracture and sacral fracture. The patient currently is on PT and OT. She is still complaining of some pain on the sacral area as well as on her left clavicle, but otherwise she denies any chest pain, shortness of breath, fever, or chills, nor any other significant complaints. LAB WORKUP THIS MORNING: CBC: WBC is 2.7, hemoglobin is 8.2, hematocrit is 26, platelets 108. Chem-6: Sodium is 131, chloride of 97, BUN of 6, and calcium of . OBJECTIVE: VITAL SIGNS: Blood pressure is 105/64, pulse of 94, respirations 18, temperature of 98.3. HEART: Regular rate and rhythm. Normal S1 and S2. No gallops. No rubs. LUNGS: Equal bilaterally. No crackles, no wheezing. ABDOMEN: Soft, nontender. Bowel sounds positive. EXTREMITIES: Negative for any pedal edema. No calf tenderness. MEDICATIONS: Reviewed. PLAN: We will continue with her present management, but I am going to cut down her free water intake to 800 mL a day because of her hyponatremia and hypochloremia. We will continue with PT and OT. [facility] /[id number]
[2019-11-10] MEDS: Polyethylene Glycol 3350 Powder 17 GM Packet PO SCH (09:44)
[2019-11-10] MEDS: Nystatin Susp 100,000 Unit/ML 5 ML UD Cup PO SCH ×4 (09:44→21:00)
[2019-11-10] MEDS: Acetaminophen 325 MG Tab PO PRN ×2 (09:44→20:57)
[2019-11-10] MEDS: Multivitamins,Therapeutic Tab PO SCH (09:44)
[2019-11-10] MEDS: Potassium Chloride 10 MEQ Tab.ER PO SCH (09:44)
[2019-11-10] MEDS: Cyclobenzaprine 10 MG Tab PO SCH ×2 (09:44→20:59)
[2019-11-10] MEDS: Docusate Sodium 100 MG Cap PO SCH ×2 (09:44→20:59)
[2019-11-10] MEDS: Sodium Chloride 0.9% 10 ML Syringe FLUSH PRN ×2 (09:46→21:00)
[2019-11-10] MEDS: Temazepam 15 MG Cap PO PRN (21:03)
[2019-11-10] MEDS: CHECK TRDERM SCH (21:10)
[2019-11-11] MEDS: Heparin Sodium 5,000 Units/ML Vial SUBCUT SCH ×3 (05:23→22:17)
[2019-11-11] MEDS: Pantoprazole 40 MG Tab.CR PO SCH (05:23)
[2019-11-11] MEDS: Morphine 2 MG/ML SYRINGE IVPUSH PRN (06:44)
[2019-11-11] MEDS: Sodium Chloride 0.9% 10 ML Syringe FLUSH PRN ×2 (06:44→08:55)
[2019-11-11] MEDS: Lidocaine 2% Viscous Solution 15 ML Cup PO SCH ×3 (07:48→16:57)
[2019-11-11] MEDS: Cyclobenzaprine 10 MG Tab PO SCH ×2 (08:51→22:18)
[2019-11-11] MEDS: Multivitamins,Therapeutic Tab PO SCH (08:51)
[2019-11-11] MEDS: oxyCODONE 5 MG Tab PO PRN ×4 (08:51→22:15)
[2019-11-11] MEDS: Potassium Chloride 10 MEQ Tab.ER PO SCH (08:51)
[2019-11-11] MEDS: Docusate Sodium 100 MG Cap PO SCH ×2 (08:51→22:18)
[2019-11-11] MEDS: Polyethylene Glycol 3350 Powder 17 GM Packet PO SCH (08:51)
[2019-11-11] MEDS: Nystatin Susp 100,000 Unit/ML 5 ML UD Cup PO SCH ×4 (08:51→22:18)
[2019-11-11] MEDS: Acetaminophen 325 MG Tab PO PRN (17:53)
[2019-11-11] MEDS: Temazepam 15 MG Cap PO PRN (22:15)
[2019-11-11] MEDS: CHECK TRDERM SCH (22:18)
[2019-11-12] MEDS: oxyCODONE 5 MG Tab PO PRN ×4 (04:05→21:16)
[2019-11-12] MEDS: Heparin Sodium 5,000 Units/ML Vial SUBCUT SCH ×3 (06:26→21:20)
[2019-11-12] MEDS: Pantoprazole 40 MG Tab.CR PO SCH (06:26)
[2019-11-12] MEDS: Potassium Chloride 10 MEQ Tab.ER PO SCH (08:16)
[2019-11-12] MEDS: Multivitamins,Therapeutic Tab PO SCH (08:16)
[2019-11-12] MEDS: Cyclobenzaprine 10 MG Tab PO SCH ×3 (08:16→21:15)
[2019-11-12] MEDS: Nystatin Susp 100,000 Unit/ML 5 ML UD Cup PO SCH ×4 (08:17→21:16)
[2019-11-12] MEDS: Lidocaine 2% Viscous Solution 15 ML Cup PO SCH ×3 (08:17→17:13)
[2019-11-12] MEDS: Polyethylene Glycol 3350 Powder 17 GM Packet PO SCH (08:18)
[2019-11-12] MEDS: Docusate Sodium 100 MG Cap PO SCH ×2 (08:18→21:19)
[2019-11-12 08:24] LABS: ANION GAP 14.5 mEq/L (7-13); CHLORIDE,CL 97 mmol/L (98-107); SODIUM,NA 133 mmol/L (136-145)
--- NOTE | 2019-11-12 10:33 | PN ---
DATE: 11/12/2019 SUBJECTIVE: The patient is doing fairly well. She still has her aches and pains from the left shoulder and sacral area, but she denies any chest pain, shortness of breath, fever, chills, abdominal pain, or any other complaints. LABORATORY DATA: Lab workup this morning; CBC: WBC is 3.5, hemoglobin is 9.1, hematocrit is 28.6, and platelet is 116. Chem 6: Sodium is 133, chloride of 97, anion gap of 14.5, and glucose is 101 (this is slight improvement for the hyponatremia and hypochloremia). OBJECTIVE: Vital Signs: Blood pressure is 97/55, pulse of 94, respirations 16, temperature of 98.1, and saturation is 97% on room air. Heart: Regular rate and rhythm. Normal S1 and S2. No gallops. No rubs. Lungs: Equal bilaterally. No crackles. No wheezing. Abdomen: Soft and nontender. Bowel sounds are positive. Extremities: Negative for any pedal edema. No calf tenderness. MEDICATIONS: Reviewed. PLAN: We will continue with her present management and continue with PT and OT. [facility] /[id number]
[2019-11-12] MEDS: fentaNYL 25 MCG/HR Transdermal Patch TRDERM SCH (11:11)
[2019-11-12] MEDS: Acetaminophen 325 MG Tab PO PRN ×2 (11:12→21:17)
[2019-11-12] MEDS: Temazepam 15 MG Cap PO PRN (21:16)
[2019-11-12] MEDS: CHECK TRDERM SCH (21:19)
[2019-11-12] MEDS: Sodium Chloride 0.9% 10 ML Syringe FLUSH PRN (21:27)
[2019-11-13] MEDS: Heparin Sodium 5,000 Units/ML Vial SUBCUT SCH ×3 (05:59→22:09)
[2019-11-13] MEDS: Pantoprazole 40 MG Tab.CR PO SCH (06:00)
[2019-11-13] MEDS: Lidocaine 2% Viscous Solution 15 ML Cup PO SCH ×3 (07:51→16:34)
[2019-11-13] MEDS: oxyCODONE 5 MG Tab PO PRN ×3 (07:53→22:07)
[2019-11-13] MEDS: Acetaminophen 325 MG Tab PO PRN ×2 (07:54→13:52)
[2019-11-13] MEDS: Potassium Chloride 10 MEQ Tab.ER PO SCH (08:57)
[2019-11-13] MEDS: Multivitamins,Therapeutic Tab PO SCH (08:58)
[2019-11-13] MEDS: Nystatin Susp 100,000 Unit/ML 5 ML UD Cup PO SCH ×4 (08:58→22:07)
[2019-11-13] MEDS: Cyclobenzaprine 10 MG Tab PO SCH ×3 (08:58→22:07)
[2019-11-13] MEDS: Docusate Sodium 100 MG Cap PO SCH ×2 (08:59→22:06)
[2019-11-13] MEDS: Polyethylene Glycol 3350 Powder 17 GM Packet PO SCH (08:59)
[2019-11-13] MEDS: CHECK TRDERM SCH (22:06)
[2019-11-13] MEDS: Temazepam 15 MG Cap PO PRN (22:07)
[2019-11-14] MEDS: Pantoprazole 40 MG Tab.CR PO SCH (06:02)
[2019-11-14] MEDS: Heparin Sodium 5,000 Units/ML Vial SUBCUT SCH ×3 (06:03→21:56)
[2019-11-14] MEDS: Lidocaine 2% Viscous Solution 15 ML Cup PO SCH ×3 (07:30→16:31)
[2019-11-14] MEDS: oxyCODONE 5 MG Tab PO PRN ×3 (07:59→20:19)
[2019-11-14] MEDS: Cyclobenzaprine 10 MG Tab PO SCH ×3 (08:52→20:56)
[2019-11-14] MEDS: Potassium Chloride 10 MEQ Tab.ER PO SCH (08:52)
[2019-11-14] MEDS: Multivitamins,Therapeutic Tab PO SCH (08:52)
[2019-11-14] MEDS: Nystatin Susp 100,000 Unit/ML 5 ML UD Cup PO SCH ×4 (08:53→20:56)
[2019-11-14] MEDS: Polyethylene Glycol 3350 Powder 17 GM Packet PO SCH (08:53)
[2019-11-14] MEDS: Docusate Sodium 100 MG Cap PO SCH ×2 (08:54→20:21)
[2019-11-14] MEDS: CHECK TRDERM SCH (20:55)
[2019-11-14] MEDS: Temazepam 15 MG Cap PO PRN (21:57)
[2019-11-15] MEDS: Heparin Sodium 5,000 Units/ML Vial SUBCUT SCH ×3 (06:04→21:08)
[2019-11-15] MEDS: Pantoprazole 40 MG Tab.CR PO SCH (06:04)
[2019-11-15] MEDS: Nystatin Susp 100,000 Unit/ML 5 ML UD Cup PO SCH ×4 (08:45→21:06)
[2019-11-15] MEDS: Cyclobenzaprine 10 MG Tab PO SCH ×3 (08:45→21:06)
[2019-11-15] MEDS: Multivitamins,Therapeutic Tab PO SCH (08:45)
[2019-11-15] MEDS: Potassium Chloride 10 MEQ Tab.ER PO SCH (08:45)
[2019-11-15] MEDS: Lidocaine 2% Viscous Solution 15 ML Cup PO SCH ×3 (08:48→17:05)
[2019-11-15] MEDS: Docusate Sodium 100 MG Cap PO SCH ×2 (09:43→21:11)
[2019-11-15] MEDS: Polyethylene Glycol 3350 Powder 17 GM Packet PO SCH (09:43)
[2019-11-15] MEDS: oxyCODONE 5 MG Tab PO PRN ×3 (09:47→21:09)
[2019-11-15] MEDS: fentaNYL 25 MCG/HR Transdermal Patch TRDERM SCH (11:55)
[2019-11-15] MEDS: Temazepam 15 MG Cap PO PRN (21:09)
[2019-11-15] MEDS: CHECK TRDERM SCH (21:13)
[2019-11-16] MEDS: Heparin Sodium 5,000 Units/ML Vial SUBCUT SCH ×3 (06:11→21:13)
[2019-11-16] MEDS: Pantoprazole 40 MG Tab.CR PO SCH (06:13)
[2019-11-16] MEDS: Lidocaine 2% Viscous Solution 15 ML Cup PO SCH ×3 (07:37→16:42)
[2019-11-16] MEDS: Nystatin Susp 100,000 Unit/ML 5 ML UD Cup PO SCH ×4 (08:56→21:14)
[2019-11-16] MEDS: Cyclobenzaprine 10 MG Tab PO SCH ×3 (08:56→21:10)
[2019-11-16] MEDS: Multivitamins,Therapeutic Tab PO SCH (08:56)
[2019-11-16] MEDS: oxyCODONE 5 MG Tab PO PRN ×2 (08:57→21:10)
[2019-11-16] MEDS: Potassium Chloride 10 MEQ Tab.ER PO SCH (08:57)
[2019-11-16] MEDS: Polyethylene Glycol 3350 Powder 17 GM Packet PO SCH (08:59)
[2019-11-16] MEDS: Docusate Sodium 100 MG Cap PO SCH ×2 (08:59→21:17)
[2019-11-16] MEDS: Temazepam 15 MG Cap PO PRN (21:10)
[2019-11-16] MEDS: CHECK TRDERM SCH (21:15)
[2019-11-17] MEDS: Heparin Sodium 5,000 Units/ML Vial SUBCUT SCH ×3 (06:15→22:22)
[2019-11-17] MEDS: Pantoprazole 40 MG Tab.CR PO SCH (06:15)
[2019-11-17] MEDS: oxyCODONE 5 MG Tab PO PRN ×2 (08:46→22:25)
[2019-11-17] MEDS: Cyclobenzaprine 10 MG Tab PO SCH ×3 (08:47→22:24)
[2019-11-17] MEDS: Multivitamins,Therapeutic Tab PO SCH (08:47)
[2019-11-17] MEDS: Potassium Chloride 10 MEQ Tab.ER PO SCH (08:47)
[2019-11-17] MEDS: Nystatin Susp 100,000 Unit/ML 5 ML UD Cup PO SCH ×4 (08:47→22:22)
[2019-11-17] MEDS: Lidocaine 2% Viscous Solution 15 ML Cup PO SCH ×3 (08:51→17:47)
[2019-11-17] MEDS: Polyethylene Glycol 3350 Powder 17 GM Packet PO SCH (08:51)
[2019-11-17] MEDS: Docusate Sodium 100 MG Cap PO SCH ×2 (08:51→22:24)
[2019-11-17] MEDS: Acetaminophen 325 MG Tab PO PRN (12:24)
[2019-11-17] MEDS: Temazepam 15 MG Cap PO PRN (22:23)
[2019-11-17] MEDS: CHECK TRDERM SCH (22:24)
[2019-11-18] MEDS: Heparin Sodium 5,000 Units/ML Vial SUBCUT SCH ×3 (06:29→22:28)
[2019-11-18] MEDS: Pantoprazole 40 MG Tab.CR PO SCH (06:29)
[2019-11-18] MEDS: Acetaminophen 325 MG Tab PO PRN ×2 (08:02→13:38)
[2019-11-18] MEDS: Nystatin Susp 100,000 Unit/ML 5 ML UD Cup PO SCH ×4 (08:02→22:26)
[2019-11-18] MEDS: Multivitamins,Therapeutic Tab PO SCH (08:03)
[2019-11-18] MEDS: Potassium Chloride 10 MEQ Tab.ER PO SCH (08:03)
[2019-11-18] MEDS: Cyclobenzaprine 10 MG Tab PO SCH ×3 (08:03→22:27)
[2019-11-18] MEDS: oxyCODONE 5 MG Tab PO PRN ×2 (08:03→22:29)
[2019-11-18] MEDS: Polyethylene Glycol 3350 Powder 17 GM Packet PO SCH (08:05)
[2019-11-18] MEDS: Docusate Sodium 100 MG Cap PO SCH ×2 (08:05→22:27)
[2019-11-18] MEDS: Lidocaine 2% Viscous Solution 15 ML Cup PO SCH ×2 (08:19→13:38)
[2019-11-18] MEDS: fentaNYL 25 MCG/HR Transdermal Patch TRDERM SCH (13:38)
[2019-11-18] MEDS: VISCOUS PO SCH (17:35)
[2019-11-18] MEDS: LIDOCAINE 2% PO SCH (17:35)
[2019-11-18] MEDS: Temazepam 15 MG Cap PO PRN (22:26)
[2019-11-18] MEDS: CHECK TRDERM SCH (22:28)
[2019-11-19] MEDS: Pantoprazole 40 MG Tab.CR PO SCH (05:41)
[2019-11-19] MEDS: Heparin Sodium 5,000 Units/ML Vial SUBCUT SCH ×3 (05:41→21:57)
[2019-11-19] MEDS: Multivitamins,Therapeutic Tab PO SCH (08:06)
[2019-11-19] MEDS: oxyCODONE 5 MG Tab PO PRN ×3 (08:07→21:59)
[2019-11-19] MEDS: Nystatin Susp 100,000 Unit/ML 5 ML UD Cup PO SCH ×4 (08:07→20:27)
[2019-11-19] MEDS: Potassium Chloride 10 MEQ Tab.ER PO SCH (08:07)
[2019-11-19] MEDS: Cyclobenzaprine 10 MG Tab PO SCH ×3 (08:07→20:27)
[2019-11-19] MEDS: VISCOUS PO SCH ×3 (08:08→17:06)
[2019-11-19] MEDS: Polyethylene Glycol 3350 Powder 17 GM Packet PO SCH (08:08)
[2019-11-19] MEDS: LIDOCAINE 2% PO SCH ×3 (08:08→17:06)
[2019-11-19] MEDS: Docusate Sodium 100 MG Cap PO SCH ×2 (08:08→21:56)
--- NOTE | 2019-11-19 11:19 | PCM.PN ---
- General Info Date of Service: 11/19/19 Subjective Update: Patient has no new complaint today Does have intermittent pain of the left shoulder. Analgesic does help. She feels that she is getting stronger. - Patient Data Vitals - Most Recent: Last Vital Signs Temp 37.2 C 11/19/19 07:13 Pulse 93 11/19/19 07:13 Resp 20 11/19/19 07:13 BP 94/56 L 11/19/19 07:13 Pulse Ox 98 11/19/19 07:13 Weight - Most Recent: 43.602 kg Med Orders - Current: Current Medications Acetaminophen (Tylenol) 650 mg PO Q4H PRN PRN Reason: Pain (Mild 1-3)/fever Last Admin: 11/18/19 13:38 Dose: 650 mg Documented by: Cyclobenzaprine HCl (Flexeril) 10 mg PO TID [facility] Last Admin: 11/19/19 08:07 Dose: 10 mg Documented by: Docusate Sodium (Colace) 100 mg PO BID [facility] Last Admin: 11/19/19 08:08 Dose: Not Given Documented by: Fentanyl (Duragesic) 25 mcg TRDERM Q72H [facility] Last Admin: 11/18/19 13:38 Dose: 25 mcg Documented by: Heparin Sodium (Porcine) (Heparin Sodium) 5,000 units SUBCUT Q8HR [facility] Last Admin: 11/19/19 05:41 Dose: 5,000 units Documented by: Lactulose (Cephulac) 20 gm PO BID PRN PRN Reason: constipation Last Admin: 11/09/19 11:30 Dose: 20 gm Documented by: Lidocaine HCl (Xylocaine 2% Viscous) 5 ml PO 0730,1130,1630 [facility] Last Admin: 11/19/19 08:08 Dose: 5 ml Documented by: Miscellaneous Information (Check Patch) 1 ea TRDERM BEDTIME [facility] Last Admin: 11/18/19 22:28 Dose: Not Given Documented by: Miscellaneous Information (Remove Patch) 1 ea TRDERM Q72H [facility] Last Admin: 11/18/19 13:39 Dose: 1 ea Documented by: Multivitamins (Thera) 1 each PO DAILY [facility] Last Admin: 11/19/19 08:06 Dose: 1 each Documented by: Febuxostat [Uloric] (80 Mg Tab *Own Med*) 80 mg PO DAILY [facility] Last Admin: 11/19/19 08:09 Dose: 80 mg Documented by: Nystatin (Mycostatin) 5 ml PO QID [facility] Last Admin: 11/19/19 08:07 Dose: 5 ml Documented by: Ondansetron HCl (Zofran Odt) 8 mg PO DAILY PRN PRN Reason: Nausea Oxycodone HCl (Oxycodone) 5 mg PO Q4H PRN PRN Reason: Pain (moderate 4-6) Last Admin: 11/19/19 08:07 Dose: 5 mg Documented by: Pantoprazole Sodium (Protonix) 40 mg PO ACBREAKFAST [facility] Last Admin: 11/19/19 05:41 Dose: 40 mg Documented by: Polyethylene Glycol (Miralax) 17 gm PO DAILY [facility] Last Admin: 11/19/19 08:08 Dose: Not Given Documented by: Potassium Chloride (Klor-Con 10) 20 meq PO DAILY [facility] Last Admin: 11/19/19 08:07 Dose: 20 meq Documented by: Temazepam (Restoril) 15 mg PO BEDTIME PRN PRN Reason: Sleep Last Admin: 11/18/19 22:26 Dose: 15 mg Documented by: Discontinued Medications Cyclobenzaprine HCl (Flexeril) 10 mg PO BID [facility] Last Admin: 11/12/19 08:16 Dose: 10 mg Documented by: Heparin Sodium (Porcine) (Heparin Lock Flush 100 Units/Ml) 500 units FLUSH ONETIME ONE Stop: 11/13/19 15:29 Last Admin: 11/13/19 16:46 Dose: 500 units Documented by: Lidocaine HCl (Xylocaine 2% Viscous) 5 ml PO TIDAC [facility] Last Admin: 11/08/19 06:10 Dose: Not Given Documented by: Lidocaine HCl (Xylocaine 2% Viscous) 5 ml PO 0430,0730,1130 [facility] Last Admin: 11/08/19 11:35 Dose: 5 ml Documented by: Lidocaine HCl (Xylocaine 2% Viscous) 5 ml PO 0730,1130,1630 [facility] Last Admin: 11/18/19 13:38 Dose: 5 ml Documented by: Morphine Sulfate (Morphine) 2 mg IVPUSH Q2H PRN PRN Reason: Pain (severe 7-10) Last Admin: 11/11/19 06:44 Dose: 2 mg Documented by: Ondansetron HCl (Zofran) 4 mg IVPUSH Q8HR PRN PRN Reason: Nausea/Vomiting Senna/Docusate Sodium (Senna Plus) 1 tab PO BID [facility] Last Admin: 11/08/19 08:40 Dose: Not Given Documented by: Sodium Chloride (Saline Flush) 10 ml FLUSH ASDIRECTED PRN PRN Reason: Keep Vein Open Last Admin: 11/12/19 21:27 Dose: 10 ml Documented by: - Exam General: Alert, Oriented, Cooperative Neck: Supple Lungs: Clear to Auscultation, Normal Respiratory Effort Cardiovascular: Regular Rate, Regular Rhythm GI/Abdominal Exam: Normal Bowel Sounds, Soft, Non-Tender, No Organomegaly, No Distention, No Abnormal Bruit, No Mass, Pelvis Stable Sepsis Event Note - Evaluation Sepsis Screening Result: No Definite Risk - Focused Exam Vital Signs: Vital Signs Temp Pulse Resp BP Pulse Ox 11/19/19 07:13 37.2 C 93 20 94/56 L 98 Date Exam was Performed: 11/19/19 Time Exam was Performed: 11:19 - Problem List Review Problem List Initiated/Reviewed/Updated: Yes - Plan Plan:: 79-year-old with a history of lymphoma on chemotherapy last treatment 4 weeks ago. The patient has been living at home with . He was going down to the basement when she fell. She did not loose consciousness but was complaining of left hip, left shoulder, mid back pain following the fall. She was able to get up and walk right away. She was brought into the emergency room. She was noted to have left clavicular fracture. She was noted to have fever. She denies cough, no urinary burning, no diarrhea, no known fever or chills at home. X-ray of the left shoulder showed distal left clavicular level fracture possible fracture of the acromion. X-ray of the left hip, pelvis showed no apparent fracture or dislocation C-spine x-ray showed degenerative changes Thoracic spine x-ray showed no acute abnormality Lumbar x-ray showed grade [address] of the lumbar spine showed old L1 fracture CT of the pelvis showed 2 areas of sacral fracture Fall Back pain due to sacral fractures Left clavicular fracture, possible fracture of the acromion pain is still not well controlled Use left hand swing, follow-up with orthopedic surgery Pain is still better controlled with Tylenol, oxycodone, Lidoderm, IV morphine, fentanyl patch, baclofen unable to ambulate independently Continue physical and occupational therapy in a swing bed setting Heat pad to the back constipation improved continue to treat with senna, lactulose Fever Chest x-ray apparently shows no infiltrate Has urinary retention, Dumont catheter was placed Urine analysis was borderline Urine culture mixed abbey blood culture: Negative for now was treated with ciprofloxacin
[2019-11-19] MEDS: CHECK TRDERM SCH (20:27)
[2019-11-19] MEDS: Temazepam 15 MG Cap PO PRN (21:58)
[2019-11-20] MEDS: Pantoprazole 40 MG Tab.CR PO SCH (05:16)
[2019-11-20] MEDS: Heparin Sodium 5,000 Units/ML Vial SUBCUT SCH (05:17)
[2019-11-20] MEDS: LIDOCAINE 2% PO SCH ×2 (07:31→11:14)
[2019-11-20] MEDS: VISCOUS PO SCH ×2 (07:31→11:14)
[2019-11-20 07:54] VITALS: BP 104/59; PULSE 94
[2019-11-20] MEDS: Multivitamins,Therapeutic Tab PO SCH (08:17)
[2019-11-20] MEDS: Nystatin Susp 100,000 Unit/ML 5 ML UD Cup PO SCH ×2 (08:17→13:10)
[2019-11-20] MEDS: Cyclobenzaprine 10 MG Tab PO SCH (08:17)
[2019-11-20] MEDS: Potassium Chloride 10 MEQ Tab.ER PO SCH (08:17)
[2019-11-20] MEDS: oxyCODONE 5 MG Tab PO PRN (08:18)
[2019-11-20] MEDS: Docusate Sodium 100 MG Cap PO SCH (08:19)
[2019-11-20] MEDS: Polyethylene Glycol 3350 Powder 17 GM Packet PO SCH (08:19)
--- NOTE | 2019-11-20 09:32 | PCM.DCSUM1 ---
Discharge Summary - Hospital Course Free Text/Narrative:: 79-year-old with a history of lymphoma on chemotherapy last treatment 4 weeks ago. The patient has been living at home with . He was going down to the basement when she fell. She did not loose consciousness but was complaining of left hip, left shoulder, mid back pain following the fall. She was able to get up and walk right away. She was brought into the emergency room. She was noted to have left clavicular fracture. She was noted to have fever. She denies cough, no urinary burning, no diarrhea, no known fever or chills at home. X-ray of the left shoulder showed distal left clavicular level fracture possible fracture of the acromion. X-ray of the left hip, pelvis showed no apparent fracture or dislocation C-spine x-ray showed degenerative changes Thoracic spine x-ray showed no acute abnormality Lumbar x-ray showed grade [address] of the lumbar spine showed old L1 fracture CT of the pelvis showed 2 areas of sacral fracture Fall Back pain due to sacral fractures Left clavicular fracture, possible fracture of the acromion pain is well controlled Use left hand swing, continue with Tylenol, oxycodone, fentanyl patch, baclofen able to ambulate independently constipation improved continue to treat with senna, miralax Diagnosis: Stroke: No - Discharge Data Discharge Date: 11/20/19 Discharge Disposition: Home, Self-Care 01 Condition: Good - Referral to Home Health Primary Care Physician: Amaya Olivo NP - Patient Summary/Data Consults: Consultations 11/05/19 12:10 OT Evaluation and Treatment [CONS] Routine PT Evaluation and Treatment [CONS] Routine - Patient Instructions Diet: Usual Diet as Tolerated Activity: As Tolerated - Discharge Plan *PRESCRIPTION DRUG MONITORING PROGRAM REVIEWED*: Not Applicable *COPY OF PRESCRIPTION DRUG MONITORING REPORT IN PATIENT GURU: Not Applicable Prescriptions/Med Rec: fentaNYL [Duragesic] 25 mcg TRDERM Q72H #6 patch Cyclobenzaprine [Flexeril] 10 mg PO TID #15 tablet Potassium Chloride [Klor-Con 10] 20 meq PO DAILY #30 tab.er polyethylene glycoL 3350 [MiraLAX] 17 gm PO DAILY #30 packet oxyCODONE 5 mg PO Q4H PRN #22 tablet PRN Reason: Pain (Moderate 4-6) Temazepam [Restoril] 15 mg PO BEDTIME PRN #30 cap PRN Reason: Sleep Home Medications: Home Meds Calcium Carbonate/Vitamin D3 [Calcium-Vitamin D] 1 tab PO DAILY 07/15/14 [History] Multivitamin [Daily Vitamin] 1 each PO DAILY 07/15/14 [History] Ascorbate Calcium/Bioflavonoid [Marisol-C 500 MG] 1 tab PO DAILY 10/15/18 [History] Cholecalciferol (Vitamin D3) [Vitamin D3] 1,000 units PO DAILY 10/15/18 [History] Vit C/E/Zn/Coppr/Lutein/Zeaxan [Preservision Areds 2 Softgel] 1 tab PO DAILY 10/15/18 [History] Omeprazole Magnesium [Prilosec Otc] 20 mg PO DAILY 10/22/19 [History] ondansetron HCL [Ondansetron HCl] 8 mg PO DAILY PRN 10/22/19 [History] Febuxostat [Uloric] 80 mg PO DAILY 10/28/19 [History] Cyclobenzaprine [Flexeril] 10 mg PO TID #15 tablet 11/20/19 [Rx] Docusate Sodium [Colace] 100 mg PO BID cap 11/20/19 [Rx] Potassium Chloride [Klor-Con 10] 20 meq PO DAILY #30 tab.er 11/20/19 [Rx] Temazepam [Restoril] 15 mg PO BEDTIME PRN #30 cap 11/20/19 [Rx] fentaNYL [Duragesic] 25 mcg TRDERM Q72H #6 patch 11/20/19 [Rx] oxyCODONE 5 mg PO Q4H PRN #22 tablet 11/20/19 [Rx] polyethylene glycoL 3350 [MiraLAX] 17 gm PO DAILY #30 packet 11/20/19 [Rx] Referrals: Amaya Olivo NP [Primary Care Provider] - - Discharge Summary/Plan Comment DC Time >30 min.: No - General Info Date of Service: 11/20/19 Subjective Update: Patient has no new complaint today feeling well, ambulating independently. - Review of Systems General: Reports: Weakness (improved). Denies: Fever Pulmonary: Denies: Shortness of Breath Cardiovascular: Denies: Chest Pain Gastrointestinal: Denies: Abdominal Pain Psychiatric: Denies: Confusion - Patient Data Vitals - Most Recent: Last Vital Signs Temp 97.4 F 11/20/19 07:53 Pulse 94 11/20/19 07:53 Resp 20 11/20/19 07:53 BP 104/59 L 11/20/19 07:53 Pulse Ox 95 11/20/19 07:53 Weight - Most Recent: 98 lb 11.2 oz I&O - Last 24 hours: Intake & Output 11/19/19 11/20/19 11/20/19 22:59 06:59 14:59 Intake Total 400 200 Balance 400 200 Med Orders - Current: Current Medications Acetaminophen (Tylenol) 650 mg PO Q4H PRN PRN Reason: Pain (Mild 1-3)/fever Last Admin: 11/18/19 13:38 Dose: 650 mg Documented by: Cyclobenzaprine HCl (Flexeril) 10 mg PO TID [facility] Last Admin: 11/20/19 08:17 Dose: 10 mg Documented by: Docusate Sodium (Colace) 100 mg PO BID [facility] Last Admin: 11/20/19 08:19 Dose: Not Given Documented by: Fentanyl (Duragesic) 25 mcg TRDERM Q72H [facility] Last Admin: 11/18/19 13:38 Dose: 25 mcg Documented by: Heparin Sodium (Porcine) (Heparin Sodium) 5,000 units SUBCUT Q8HR [facility] Last Admin: 11/20/19 05:17 Dose: 5,000 units Documented by: Lactulose (Cephulac) 20 gm PO BID PRN PRN Reason: constipation Last Admin: 11/09/19 11:30 Dose: 20 gm Documented by: Lidocaine HCl (Xylocaine 2% Viscous) 5 ml PO 0730,1130,1630 [facility] Last Admin: 11/20/19 07:31 Dose: 5 ml Documented by: Miscellaneous Information (Check Patch) 1 ea TRDERM BEDTIME [facility] Last Admin: 11/19/19 20:27 Dose: Not Given Documented by: Miscellaneous Information (Remove Patch) 1 ea TRDERM Q72H [facility] Last Admin: 11/18/19 13:39 Dose: 1 ea Documented by: Multivitamins (Thera) 1 each PO DAILY [facility] Last Admin: 11/20/19 08:17 Dose: 1 each Documented by: Febuxostat [Uloric] (80 Mg Tab *Own Med*) 80 mg PO DAILY [facility] Last Admin: 11/20/19 08:18 Dose: 80 mg Documented by: Nystatin (Mycostatin) 5 ml PO QID [facility] Last Admin: 11/20/19 08:17 Dose: 5 ml Documented by: Ondansetron HCl (Zofran Odt) 8 mg PO DAILY PRN PRN Reason: Nausea Oxycodone HCl (Oxycodone) 5 mg PO Q4H PRN PRN Reason: Pain (moderate 4-6) Last Admin: 11/20/19 08:18 Dose: 5 mg Documented by: Pantoprazole Sodium (Protonix) 40 mg PO ACBREAKFAST [facility] Last Admin: 11/20/19 05:16 Dose: 40 mg Documented by: Polyethylene Glycol (Miralax) 17 gm PO DAILY [facility] Last Admin: 11/20/19 08:19 Dose: Not Given Documented by: Potassium Chloride (Klor-Con 10) 20 meq PO DAILY [facility] Last Admin: 11/20/19 08:17 Dose: 20 meq Documented by: Temazepam (Restoril) 15 mg PO BEDTIME PRN PRN Reason: Sleep Last Admin: 11/19/19 21:58 Dose: 15 mg Documented by: Discontinued Medications Cyclobenzaprine HCl (Flexeril) 10 mg PO BID [facility] Last Admin: 11/12/19 08:16 Dose: 10 mg Documented by: Heparin Sodium (Porcine) (Heparin Lock Flush 100 Units/Ml) 500 units FLUSH ONETIME ONE Stop: 11/13/19 15:29 Last Admin: 11/13/19 16:46 Dose: 500 units Documented by: Lidocaine HCl (Xylocaine 2% Viscous) 5 ml PO TIDAC [facility] Last Admin: 11/08/19 06:10 Dose: Not Given Documented by: Lidocaine HCl (Xylocaine 2% Viscous) 5 ml PO 0430,0730,1130 [facility] Last Admin: 11/08/19 11:35 Dose: 5 ml Documented by: Lidocaine HCl (Xylocaine 2% Viscous) 5 ml PO 0730,1130,1630 [facility] Last Admin: 11/18/19 13:38 Dose: 5 ml Documented by: Morphine Sulfate (Morphine) 2 mg IVPUSH Q2H PRN PRN Reason: Pain (severe 7-10) Last Admin: 11/11/19 06:44 Dose: 2 mg Documented by: Ondansetron HCl (Zofran) 4 mg IVPUSH Q8HR PRN PRN Reason: Nausea/Vomiting Senna/Docusate Sodium (Senna Plus) 1 tab PO BID [facility] Last Admin: 11/08/19 08:40 Dose: Not Given Documented by: Sodium Chloride (Saline Flush) 10 ml FLUSH ASDIRECTED PRN PRN Reason: Keep Vein Open Last Admin: 11/12/19 21:27 Dose: 10 ml Documented by: - Exam General: Reports: Alert, Oriented Neck: Reports: Supple Lungs: Reports: Clear to Auscultation, Normal Respiratory Effort Cardiovascular: Reports: Regular Rate, Regular Rhythm GI/Abdominal Exam: Normal Bowel Sounds, Soft, Non-Tender Extremities: No Pedal Edema
== END 2019-11-20 13:00 | disposition home or self-care (01) | DRG 560 ==
LOC: UNDOADMIN 12:13 → DL.MS 12:13
PROVIDERS: ADMIT Internal Medicine; ATTEND Internal Medicine
DX: S42.032D Displaced fracture of lateral end of left clavicle, subsequent encounter for fracture with routine healing (principal); N39.0 Urinary tract infection, site not specified; E87.1 Hypo-osmolality and hyponatremia; S32.10XD Unspecified fracture of sacrum, subsequent encounter for fracture with routine healing; E87.8 Other disorders of electrolyte and fluid balance, not elsewhere classified; R33.9 Retention of urine, unspecified; E78.00 Pure hypercholesterolemia, unspecified; K59.09 Other constipation; N18.9 Chronic kidney disease, unspecified; M10.9 Gout, unspecified; M81.0 Age-related osteoporosis without current pathological fracture; Z85.828 Personal history of other malignant neoplasm of skin; Z88.0 Allergy status to penicillin; Z79.899 Other long term (current) drug therapy; Z88.5 Allergy status to narcotic agent; Z88.1 Allergy status to other antibiotic agents; Z98.49 Cataract extraction status, unspecified eye; W19.XXXD Unspecified fall, subsequent encounter
CPT/HCPCS: 36415; 80048; 85025; 97110-GP; 97116-GP; 97162-GP; 97165-GO; 97530-GO; 97530-GP; 97535-GO; A9270-GY; J1642; J1644; J2270

== ENCOUNTER 2020-05-18 12:15 | Emergency (ER) | payer MEDICARE, OTHER ==
[2020-05-18 12:50] VITALS: BP 104/61; PULSE 82
--- NOTE | 2020-05-18 13:18 | EDM.PDOC ---
ED HPI GENERAL MEDICAL PROBLEM - General Chief Complaint: Upper Extremity Injury/Pain Stated Complaint: LEFT ARM/SHOULD INJ Time Seen by Provider: 05/18/20 13:05 Source of Information: Reports: Patient History Limitations: Reports: No Limitations - History of Present Illness INITIAL COMMENTS - FREE TEXT/NARRATIVE: This 79 yo female patient was brought to the ED by her due to a ground level fall and left arm pain. The patient reports she is a hospice patient and was with the hospice nurse in her kitchen when she "just fell". The patient does not recall tripping or slipping before the fall. The patient reports she has been very weak with increasing weakness. The patient reports she currently has pain to her left arm from her shoulder to her hand due to the fall. The patient was placed in a sling (by EMS). The patient reports she did hit her head during the fall, but does not want any labs or CTs of her head. Since she is on hospice, the patient was advised not to have any lab work done during the visit. 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: Other Medication(s) (Morphine due to cancer) Left Arm Pain Score (Numeric/FACES): 6 - Related Data Allergies Allergy/AdvReac Type Severity Reaction Status Date / Time allopurinol Allergy UNKNOWN Verified 05/18/20 12:50 amoxicillin Allergy Hives Verified 05/18/20 12:50 clavulanic acid Allergy Hives Verified 05/18/20 12:50 [From Augmentin] tramadol Allergy Nausea Verified 05/18/20 12:50 Home Meds: Home Meds Calcium Carbonate/Vitamin D3 [Calcium-Vitamin D] 1 tab PO DAILY 07/15/14 [History] Multivitamin [Daily Vitamin] 1 each PO DAILY 07/15/14 [History] Cholecalciferol (Vitamin D3) [Vitamin D3] 1,000 units PO DAILY 10/15/18 [History] Vit C/E/Zn/Coppr/Lutein/Zeaxan [Preservision Areds 2 Softgel] 1 tab PO DAILY 10/15/18 [History] Omeprazole Magnesium [Prilosec Otc] 20 mg PO DAILY 10/22/19 [History] ondansetron HCL [Ondansetron HCl] 8 mg PO DAILY PRN 10/22/19 [History] Febuxostat [Uloric] 80 mg PO DAILY 10/28/19 [History] Docusate Sodium [Colace] 100 mg PO BID cap 11/20/19 [Rx] Temazepam [Restoril] 15 mg PO BEDTIME PRN #30 cap 11/20/19 [Rx] polyethylene glycoL 3350 [MiraLAX] 17 gm PO DAILY #30 packet 11/20/19 [Rx] Past Medical History HEENT History: Reports: Glaucoma Other HEENT History: wears glasses Cardiovascular History: Reports: High Cholesterol Respiratory History: Reports: None Gastrointestinal History: Reports: None, Chronic Constipation Genitourinary History: Reports: Chronic Renal Insuffiency [employer] History: Reports: Musculoskeletal History: Reports: Gout Neurological History: Reports: None Psychiatric History: Reports: None Endocrine/Metabolic History: Reports: Osteoporosis Other Endocrine/Metabolic History: HX OF ELEVATED TSH Hematologic History: Reports: Anemia, Blood Transfusion(s), Other (See Below) Other Hematologic History: ELEVATED BLOOD URIC ACID LEVEL. CHRONIC LYMPHOCYTIC LEUKEMIA Immunologic History: Reports: None Oncologic (Cancer) History: Reports: Leukemia, Lymphoma, Other (See Below) Other Oncologic History: gastric lymphoma Dermatologic History: Reports: None - Infectious Disease History Infectious Disease History: Reports: Measles - Past Surgical History Head Surgeries/Procedures: Reports: None HEENT Surgical History: Reports: Cataract Surgery, Other (See Below) Other HEENT Surgeries/Procedures: S/P ENTROPION REPAIR LEFT Cardiovascular Surgical History: Reports: None GI Surgical History: Reports: Colonoscopy Female Surgical History: Reports: None Musculoskeletal Surgical History: Reports: None Social & Family History - Family History Family Medical History: No Pertinent Family History - Tobacco Use Tobacco Use Status *Q: Never Tobacco User Second Hand Smoke Exposure: No - Caffeine Use Caffeine Use: Reports: None Caffeine Use Comment: 1.5 cups daily - Recreational Drug Use Recreational Drug Use: No Review of Systems - Review of Systems Review Of Systems: Comprehensive ROS is negative, except as noted in HPI. ED EXAM, GENERAL - Physical Exam Exam: See Below Exam Limited By: No Limitations General Appearance: Alert, WD/WN, Mild Distress, Thin Eye Exam: Bilateral Eye: EOMI, Normal Inspection, PERRL Ears: Normal External Exam, Normal Canal, Hearing Grossly Normal, Normal TMs Nose: Normal Inspection, Normal Mucosa, No Blood Throat/Mouth: Normal Inspection, Normal Lips, Normal Teeth, Normal Gums, Normal Oropharynx, Normal Voice, No Airway Compromise Head: Atraumatic, Normocephalic Neck: Normal Inspection, Supple, Non-Tender, Full Range of Motion Respiratory/Chest: No Respiratory Distress, Lungs Clear, Normal Breath Sounds, No Accessory Muscle Use, Chest Non-Tender Cardiovascular: Normal Peripheral Pulses, Regular Rate, Rhythm, No Edema, No Gallop, No JVD, No Murmur, No Rub GI/Abdominal: Normal Bowel Sounds, Soft, Non-Tender, No Organomegaly, No Distention, No Abnormal Bruit, No Mass (Female) Exam: Deferred Rectal (Female) Exam: Deferred Back Exam: Normal Inspection, Full Range of Motion, NT Extremities: Arm Pain (left arm pain (from shoulder through wrist)) Neurological: Alert, Oriented, CN II-XII Intact, Normal Cognition, Normal Gait, Normal Reflexes, No Motor/Sensory Deficits Psychiatric: Normal Affect, Normal Mood Skin Exam: Warm, Dry, Intact, Normal Color, No Rash Lymphatic: No Adenopathy Course - Vital Signs Last Recorded V/S: Last Vital Signs Temp 37.1 C 05/18/20 12:44 Pulse 82 05/18/20 12:44 Resp 16 05/18/20 12:44 BP 104/61 05/18/20 12:44 Pulse Ox 100 05/18/20 12:44 - Orders/Labs/Meds Orders: Active Orders 24 hr Category Date Time Status DME for Discharge [COMM] Urgent Oth 05/18/20 14:28 Ordered Departure - Departure Time of Disposition: 14:32 Disposition: Home, Self-Care 01 Condition: Fair Clinical Impression: Fall from ground level Left wrist fracture Qualifiers: Encounter type: initial encounter Fracture type: closed Qualified Code(s): S62.102A - Fracture of unspecified carpal bone, left wrist, initial encounter for closed fracture Closed fracture of left proximal humerus Qualifiers: Encounter type: initial encounter Fracture morphology: other fracture Fracture alignment: nondisplaced Qualified Code(s): S42.295A - Other nondisplaced fracture of upper end of left humerus, initial encounter for closed fracture - Discharge Information *PRESCRIPTION DRUG MONITORING PROGRAM REVIEWED*: Not Applicable *COPY OF PRESCRIPTION DRUG MONITORING REPORT IN PATIENT GURU: Not Applicable Instructions: Humerus Fracture Treated With Immobilization, How To Use a Sling, [id number], Wrist Fracture Treated With Immobilization Forms: ED Department Discharge Care Plan Goals: The patient was advised of the examination and x-ray results during the visit. The patient was placed in a left wrist splint (velcro manufactured) and a sling for support. The patient was encouraged to rest and ice the area of concerns. If the patient has any additional symptoms or concerns, the patient should either return to the emergency department or visit her primary care facility. Sepsis Event Note (ED) - Evaluation Sepsis Screening Result: No Definite Risk - Focused Exam Vital Signs: Vital Signs Temp Pulse Resp BP Pulse Ox 05/18/20 12:44 37.1 C 82 16 104/61 100 - My Orders Last 24 Hours: My Active Orders 05/18/20 14:28 DME for Discharge [COMM] Urgent - Assessment/Plan Last 24 Hours: My Active Orders 05/18/20 14:28 DME for Discharge [COMM] Urgent
--- NOTE | 2020-05-18 14:13 | CR ---
EXAMINATION: Forearm 2V Lt SEX: Female AGE: 79 years CLINICAL HISTORY: 79-year-old female injured in ground-level fall Interpretation (2 views): Abnormal. Generalized mild osteopenia consistent with age and gender. Homogeneously dense bones. Acute, mildly impacted distal diaphyseal fracture left radius with surrounding soft tissue swelling. Dorsal angulation deformity and some offset but generally anatomic alignment. No sign of other long bone radial/ulnar fracture. No dislocation of the left elbow or wrist joint.
--- NOTE | 2020-05-18 14:17 | CR ---
EXAMINATION: Humerus 2 views Lt SEX: Female AGE: 79 years CLINICAL HISTORY: 79-year-old female injured in ground-level fall. Fractured left radius. Interpretation: Irregular lucent line proximal diaphysis left humerus and adjacent cortical "step" suggesting nondisplaced proximal left humeral fracture i.e. suspicious. Point tenderness? (Age of injury uncertain) Additional views may prove helpful. No distal fracture of the left humeral shaft. No dislocation left shoulder or elbow.
--- NOTE | 2020-05-18 14:20 | CR ---
EXAMINATION: Wrist Comp Min 3V Lt SEX: Female AGE: 79 years CLINICAL HISTORY: 79-year-old female injured in ground-level fall. Interpretation (3 views) osteopenia. Acute, mildly impacted distal diametaphyseal fracture left radius. Dorsal angulation deformity but satisfactory apposition and near anatomic alignment. Comminuted fracture ulnar styloid. No fracture or dislocation carpal bones of the left wrist. Chronic arthritic changes (mild). No metacarpal or proximal phalangeal fractures.
== END 2020-05-18 14:55 | disposition home or self-care (01) ==
LOC: DL.ED 12:15
DX: S42.295A Other nondisplaced fracture of upper end of left humerus, initial encounter for closed fracture (principal); S62.102A Fracture of unspecified carpal bone, left wrist, initial encounter for closed fracture; N18.9 Chronic kidney disease, unspecified; Z88.5 Allergy status to narcotic agent; Z88.0 Allergy status to penicillin; Z88.1 Allergy status to other antibiotic agents; Z88.8 Allergy status to other drugs, medicaments and biological substances; Z79.899 Other long term (current) drug therapy; W17.89XA Other fall from one level to another, initial encounter
CPT/HCPCS: 73060-LT; 73090-LT; 73110-LT; 99283-25; 99284